=== PATIENT | female | born 1990 | race African-American/Black ===

== ENCOUNTER 2024-06-03 11:02 | Observation (INO) | payer OTHER, SELFPAY ==
[2024-06-03 11:30] VITALS: BP 106/62; PULSE 89
[2024-06-03 11:45] VITALS: BP 111/62; PULSE 88
[2024-06-03 12:00] VITALS: BP 105/59; PULSE 89
[2024-06-03 12:10] LABS: Add Urine Microscopic? NO; Appearance Urine Clear (Clear); Bilirubin Urine Negative (Negative); Blood Urine Negative (Negative); Color Urine Yellow (Yellow); Glucose Urine UA Negative (Negative); Ketones Urine Negative (Negative); Leukocyte Esterase Ur Negative LEU/UL (Negative); Nitrate Urine Negative (Negative); Protein Urine Negative (Negative); Specific Grav Ur 1.024 (1.001-1.035); Urobilinogen Urine 0.2 mg/dL (<2.0)
[2024-06-03 12:15] VITALS: BP 104/60; PULSE 84
[2024-06-03 12:30] VITALS: BP 104/57; PULSE 85
[2024-06-03 13:07] VITALS: BMI 27.6
--- NOTE | 2024-06-03 13:07 | OBADM ---
This patient, Sara Kimble, admitted to the OB room OB Post 116 for observation. Patient/family oriented to hospital policies and general routines including ID bracelet, bed and alarms, visiting hours, pain management, procedures, bathroom and other care routines, personal items, smoking policy, room service/diet, and visiting hours. Patient/Family are encouraged to report perceived risks to care and to ask questions if they do not understand what they are told or what they should do.
--- NOTE | 2024-06-04 09:25 | P.PNOB_ITS ---
OB - Triage/Final Diagnosis Visit Information Date of evaluation: 07/03/24 Reason for evaluation: threatened labor Comments/Additional reasons for admission: I have assessed the risk for this patient, Sara Kimble, and determined that she would benefit from observation care. Evaluation Laboratory results: Laboratory Tests 06/03/24 11:43 Urine Color Yellow Urine Appearance Clear Urine pH 6.0 Ur Specific [place] 1.024 Urine Protein Negative Urine Glucose (UA) Negative Urine Ketones Negative Ur Blood (Man) Negative Urine Nitrate Negative Urine Bilirubin Negative Urine Urobilinogen 0.2 Ur Leukocyte Esterase Negative Vital signs: Vital Signs - 24 hr 06/03/24 11:30 06/03/24 11:45 06/03/24 12:00 Pulse Rate 89 88 89 Blood Pressure 106/62 111/62 105/59 L 06/03/24 12:15 06/03/24 12:30 Pulse Rate 84 85 Blood Pressure 104/60 104/57 L
== END 2024-06-03 13:24 | disposition home or self-care (01) ==
PROVIDERS: Admitting Provider Obstetrics & Gynecology; Visit Provider Obstetrics & Gynecology
DX: O47.9 False labor, unspecified (principal); Z3A.00 Weeks of gestation of pregnancy not specified
CPT/HCPCS: 81003; 87086; G0378; G0379

== ENCOUNTER 2024-06-08 10:48 | Outpatient (RCR) | payer OTHER, SELFPAY ==
[2024-06-10] MEDS: RHO(D) IMMUNE GLOBULIN 300 MCG/2 ML SYRINGE IM (16:34)
== END 2024-09-06 23:59 | disposition home or self-care (01) ==
LOC: ANHLAB 10:48
PROVIDERS: Visit Provider Obstetrics & Gynecology
DX: Z29.13 Encounter for prophylactic Rho(D) immune globulin (principal)
CPT/HCPCS: 36415; 85461; 86850; 86900; 86901; 90384; 96372; J2790

== ENCOUNTER 2024-07-19 16:10 | Observation (INO) | payer OTHER, SELFPAY ==
[2024-07-19 16:51] VITALS: BP 114/73; PULSE 98
[2024-07-19 17:00] VITALS: BP 112/69; PULSE 89
[2024-07-19 17:13] LABS: Add Urine Microscopic? YES; Appearance Urine Clear (Clear); Bacteria Urine None Seen /hpf; Bilirubin Urine Negative (Negative); Blood Urine Negative (Negative); Color Urine Yellow (Yellow); Glucose Urine UA Negative (Negative); Ketones Urine Negative (Negative); Leukocyte Esterase Ur Trace LEU/UL (Negative); Nitrate Urine Negative (Negative); Non Pathogenic Casts 0-2; Protein Urine Negative (Negative); Specific Grav Ur 1.019 (1.001-1.035); Squamous Epithelial Cell Urine Moderate /hpf (Few); Urobilinogen Urine 0.2 mg/dL (<2.0); WBC Urine 0-5 /hpf (0-3)
[2024-07-19 17:15] VITALS: BP 116/62; PULSE 84
[2024-07-19 17:27] VITALS: BMI 28.6
--- NOTE | 2024-07-21 12:24 | P.PNOB_ITS ---
OB - Triage/Final Diagnosis Visit Information Date of evaluation: 07/20/24 Reason for evaluation: threatened labor Comments/Additional reasons for admission: I have assessed the risk for this patient, Sara Kimble, and determined that she would benefit from observation care. Evaluation Laboratory results: Laboratory Tests 07/19/24 16:44 Urine Color Yellow Urine Appearance Clear Urine pH 7.0 Ur Specific [place] 1.019 Urine Protein Negative Urine Glucose (UA) Negative Urine Ketones Negative Ur Blood (Man) Negative Urine Nitrate Negative Urine Bilirubin Negative Urine Urobilinogen 0.2 Ur Leukocyte Esterase Trace H Urine RBC 3-5 H Urine WBC 0-5 Ur Squamous Epith Cells Moderate Urine Bacteria None seen Urine Casts 0-2
== END 2024-07-19 18:10 | disposition home or self-care (01) ==
PROVIDERS: Admitting Provider Obstetrics & Gynecology; Visit Provider Obstetrics & Gynecology
DX: O47.03 False labor before 37 completed weeks of gestation, third trimester (principal); Z3A.36 36 weeks gestation of pregnancy
CPT/HCPCS: 81001; 87086; G0378; G0379

== ENCOUNTER 2024-08-09 14:53 | Observation (INO) | payer OTHER, SELFPAY ==
--- NOTE | ~2024-08-09 | US_ITS ---
EXAMINATION: US OB BPP wo non-stress DATE: 08/09/2024 19:04 FORGING MACHINE HAND INDICATION: Low baseline TECHNIQUE: Real-time transabdominal obstetric ultrasound. FINDINGS: There is a single intrauterine gestation in vertex presentation. The placenta is anterior without pl acenta previa. cardiac activity and movement is noted with a heart rate of 141 beats per minute. Biophysical profile: breathin of 2 movement: 2 of 2 tone: 2 of 2 Amniotic fluid pocket: 2 of 2 (the deepest vertical pocket measures 3 cm, although subjectively, stat ic imaging suggests the amniotic fluid is borderline low). Total score: 8 of 8 No images of the cervix are provided the submitted images. IMPRESSION: 1. Single intrauterine gestation in vertex presentation. 2: Total biophysical profile score of 8 out of 8 . Reviewed, dictated and finalized at location A. ING MACHINE HAND
--- NOTE | 2024-08-09 15:15 | OBADM ---
This patient, Sara Kimble, admitted to the OB room Labor/Delivery/Recovery 105 for observation. Patient/family oriented to hospital policies and general routines including ID bracelet, bed and alarms, visiting hours, pain management, procedures, bathroom and other care routines, personal items, smoking policy, room service/diet, and visiting hours. Patient/Family are encouraged to report perceived risks to care and to ask questions if they do not understand what they are told or what they should do.
--- OUTSIDE RECORDS SUMMARY | 2024-08-16 03:18 | XMS_ITS | Encounter Summary ---
Author Organization [facility] Address [facility] [place] [place], [place] [address] [place] [address] Care Team Providers Care Police Patrol Lieutenant Name Role Phone Sahil Flores MD Primary Care Provider [phone] Encounter Details Date Type Department Care Team (Late st Contact Info) Description 05/09/2023 Orders Only [facility] [address] [place] [address] Neida Epps MD [address] [place] [address] Social History Tobacco Use Types Packs/Day Years Used Date Smoking Tobacco: Never Smokeless Tobacco: Never Alcohol Use Standard Drinks/Week Comments Not Currently 0 (1 standard drink = 0.6 oz pur e alcohol) Comments No Sex and Gender Information Value Date Recorded Sex Assigned at Not on file Legal Sex Female 10:24 PM CDT Gender Identity Not on file Sexual Orientation Not on file documented as of this encounter Functional Status * RETIRED Are you deaf or do you have serious difficulty hearing Answer Date of Assessment Author Status Yes 05/25/2021 10:44 AM CDT Acti ve * RETIRED Are you blind or do you have serious difficulty seeing, even when wearing glasses? Answer Date of Assessment Author Status No 05/25/2021 10:44 AM CDT Acti ve * Do you have serious difficulty walking or climbing stairs? Answer Date of Assessment Author Status No 05/25/2021 10:44 AM CDT Inez Kim RN Active * Do you have difficulty dressing or bathing? Answer Date of Assessment Author Status No 05/25/2021 10:44 AM CDT Inez Kim RN Active * Because of a physical, mental, or emotional condition, do you have difficulty doing errands alone such as visiting a doctor's office or shopping? Answer Date of Assessment Author Status No 05/25/2021 10:44 AM CDT Inez Kim RN Active documented as of this encounter Mental Status * Because of a physical, mental, or emotional condition, do you have serious difficulty concentrating, remembering, or making decisions? Answer Entry Date Author Status No 05/25/2021 10:44 AM CDT Inez Kim RN Active documented in this encounter Plan of Treatment Not on file documented as of this encounter Results * (ABNORMAL) COMPREHENSIVE METABOLIC PANEL (05/09/2023 4:15 PM CDT) [facility] GLUCOSE 121(H) 70 - 99 MG/DL 05/09/2023 4:[address] [facility] BUN 12 7 - 18 MG/DL 05/09/2023 4:[address] [facility] CREATININE S/P/B 0.77 0.55 - 1.02 MG/DL 05/09/2023 4:[address] [facility] SODIUM S/P/B 140 136 - 145 MMOL/L 05/09/2023 4:[address] [facility] POTASSIUM S/P/B 3.9 3.5 - 5.1 MMOL/L 05/09/2023 4:[address] [facility] CHLORIDE S/P/B 104 100 - 108 MMOL/L 05/09/2023 4:[address] [facility] CO2 28.5 21 - 32 MMOL/L 05/09/2023 4:[address] [facility] CALCIUM S/P/B 8.9 8.5 - 10.1 MG/DL 05/09/2023 4:38 PM [facility] BILIRUBIN TOTAL S/P/B 0.5 0.2 - 1.2 MG/DL 05/09/2023 4:38 PM [facility] TOTAL PROTEIN S/P/B 7.3 6.4 - 8.2 G/DL 05/09/2023 4:38 PM [facility] ALBUMIN S/P/B 3.9 3.4 - 5.0 G/DL 05/09/2023 4:38 PM [facility] AST 20 15 - 37 U/L 05/09/2023 4:38 PM [facility] ALT 41 14 - 55 U/L 05/09/2023 4:38 PM [facility] ALKALINE PHOSPHATASE S/P/B 79 50 - 136 U/L 05/09/2023 4:38 PM [facility] ANION GAP 7.5 5 - 15 MMOL/L 05/09/2023 4:38 PM [facility] BUN CREATININE RATIO 15.6 6 - 26 05/09/2023 4:38 PM [facility] A/G RATIO 1.1 1.0 - 2.0 RATIO 05/09/2023 4:38 PM [facility] GFR ESTIMATE >90 >90 ML/MIN/1.7 3 M2 05/09/2023 4:38 PM [facility] Comment: NOTE: eGFR is not calculated for patients <18 years of age. This is an estimated GFR calculation using the new CKD EPI creatinine equation without race and so does not require a correction factor for race. This estimated GFR should not be used for calculating drug doses. 05/09/2023 4:15 PM CDT us Neida Epps MD LABORATORY Final Result [facility] [address] [place] [address], documented in this encounter Visit Diagnoses Diagnosis LFT elevation- Primary Other abnormal blood chemistry documented in this encounter Care Teams Police Patrol Lieutenant Relationship Specialty Start Date End Date Sahil Flores MD [address] [place] [address] PCP - General FAMILY MEDICINE SPORTS MEDICINE 03/06/21 documented as of this encounter
--- OUTSIDE RECORDS SUMMARY | 2024-08-16 03:18 | XMS_ITS | Encounter Summary ---
Author Organization [facility] Address [address] [place] [address]. [place], [place] [address] [place] [address] Care Team Providers Care General Road Supervisor Name Role Phone Sahil Flores MD Primary Care Provider [phone] Encounter Details Date Type Department Care Team (Late st Contact Info) Description 05/15/2022 Orders Only [facility] [address] [place] [address] Cari Martinez, [facility] [address] [place] [address] Social History Tobacco Use Types Packs/Day Years Used Date Smoking Tobacco: Never Smokeless Tobacco: Never Alcohol Use Standard Drinks/Week Comments Not Currently 0 (1 standard drink = 0.6 oz pur e alcohol) Comments No Sex and Gender Information Value Date Recorded Sex Assigned at Not on file Legal Sex Female 10:24 PM CDT Gender Identity Not on file Sexual Orientation Not on file COVID-19 Exposure Response Date Recorded In the last 10 days, have yo u been in contact with someone who was confirmed or suspected to have Coronavirus/COVID-19? No / Unsure 05/15/2022 11:40 AM CDT documented as of this encounter Functional Status [...] documented as of this encounter Results * THYROID STIM HORMONE, TSH (05/15/2022 11:54 AM CDT) TSH 1.992 0.358 - 3.74 uIU/ML 05/15/2022 12:42 PM CDT [facility] Comment: HIGH DOSES OF BIOTIN MAY INTERFERE WITH THIS TEST RESULT. CORRELATION TO CLINICAL HISTORY AND PRESENTATION RECOMMENDED. 05/15/2022 11:5 4 AM CDT Cari Martinez CNM LABORATORY Final Result [facility] [address] [place] [address], * HCG QUANT (SERUM)-CHORIONIC GONADOTROPIN (05/15/2022 11:54 AM CDT) HCG QUANTITATIVE <1 MIU/ML 05/15/20 12:42 PM CDT [facility] Comment: WEEKS OF ? REFERENCE RANGES NON- FEMALE ?0-6 ? 0.2 - 1 ? 5 - 50 ? 1 - 2 ? 50 - 500 ? 2 - 3 ? 100 - 5000 ? 3 - 4 ? 500 - 10,000 ? 4 - 5 ? 1000 - 50,000 ? 5 - 6 ? 10,000 - 100,000 ? 6 - 8 ? 15,000 - 200,000 ? 2 - 3 MONTHS ?10,000 - 100,000 05/15/2022 11:5 4 AM CDT [facility] Final Result Performing Organization Address [facility] Co de Phone Number [facility] () [facility] [address] [place] [address], documented in this encounter Visit Diagnoses Diagnosis Hemorrhage in uterus- Primary Hematometra documented in this encounter Care Teams General Road Supervisor Relationship Specialty Start Date End Date Sahil Flores MD [address] [place] [address] PCP - General FAMILY MEDICINE SPORTS MEDICINE 03/06/21 documented as of this encounter
--- OUTSIDE RECORDS SUMMARY | 2024-08-16 03:18 | XMS_ITS | Encounter Summary ---
Author Organization [facility] Address [address] [place] [address]. [place], [place] [address] [place] [address] Care Team Providers Care Fiber Optics Technician Name Role Phone Sahil Flores MD Primary Care Provider [phone] Encounter Details Date Type Department Care Team (Latest Contact Info) Description 05/11/2021 2:24 PM CDT - 05/11/2021 2:37 PM CDT Hospital Encounter [facility] Labor & Delivery [address] [place], [place] [id number] Neida Epps MD [address] [place], [place] [id number] Discharge Disposition: Home or Self Care (Routine Discharge) Social History Tobacco Use Types Packs/Day Years Used Date Smoking Tobacco: Never Assessed Comments Yes Sex and Gender Information Value Date Recorded Sex Assigned at Not on file Legal Sex Female 10:24 PM CDT Gender Identity Not on file Sexual Orientation Not on file documented as of this encounter Medications at Time of Discharge buPROPion XL 300 MG 24 hr tablet Take 300 mg by mouth daily. vitamin 27-1 MG tablet Take 1 tablet by mouth daily. documented as of this encounter Plan of Treatment Not on file documented as of this encounter Visit Diagnoses Not on filedocumented in this encounter Administered Medications Inactive Administered Medications - up to 3 most recent administrations Medication Order MAR Action Action Date Dose Rate Site betamethasone acet/sodium phosphate (CELESTONE) injection 12 mg 12 mg, Intramuscular, Once, 1 dose, On Fri05/11/21 at 1445, Shake Well Given 05/11/2021 2:33 PM CDT 12 mg Right Ventrogluteal documented in this encounter Active and Recently Administered Medications Times are shown in CDT. Scheduled Medication Order 05/09/2021 05/10/2021 05/11/2021 betamethasone acet/sodium phosphate (CELESTONE) injection 12 mg (COMPLETED) 12 mg, Intramuscular, Once, 1 dose, On Fri05/11/21 at 1445, Shake Well 1433 (Given - Provid er: Ankita Mandujano RN) documented in this encounter Care Teams Fiber Optics Technician Relationship Specialty Start Date End Date Sahil Flores MD [address] [place] [address] PCP - General FAMILY MEDICINE SPORTS MEDICINE 03/06/21 documented as of this encounter
--- OUTSIDE RECORDS SUMMARY | 2024-08-16 03:18 | XMS_ITS | Encounter Summary ---
Author Organization [facility] Address [address] [place] [address]. [place], [place] [address] [place] [address] Care Team Providers Care Automatic Edger Name Role Phone Sahil Flores MD Primary Care Provider Encounter Details Date Type Department Care Team (Latest Contact Info) Description 05/23/2021 Travel Social History Tobacco Use Types Packs/Day Years Used Date Smoking Tobacco: Never Assessed Comments Yes Sex and Gender Information Value Date Recorded Sex Assigned at Not on file Legal Sex Female 10:24 PM CDT Gender Identity Not on file Sexual Orientation Not on file COVID-19 Exposure Response Date Recorded In the last month, have you been in contact with someone who was confirmed or suspected to have Coronavirus / COVID-19? No / Unsure 05/23/2021 12:56 PM CDT documented as of this encounter Plan of Treatment Not on file documented as of this encounter Visit Diagnoses Not on filedocumented in this encounter Care Teams Automatic Edger Relationship Specialty Start Date End Date Sahil Flores MD [facility] [place] [address] PCP - General FAMILY MEDICINE SPORTS MEDICINE 03/06/21 documented as of this encounter
--- OUTSIDE RECORDS SUMMARY | 2024-08-16 03:18 | XMS_ITS | Encounter Summary ---
Author Organization [facility] Address [address] [facility] [place] [address] Care Team Providers Care Child Caregiver Name Role Phone Unavailable Primary Care Provider Unavailabl e Encounter Details Date Type Department Care Team (Latest Contact Info) Description 02/08/2021 8:30 AM CDT - 02/08/2021 11:59 PM CDT Hospital Encounter [facility]ERNAL TE[facility]OU[facility] [address] [place] [address] Justo King MD [address] [address] Discharge Disposition: Home or Self Care Social History Tobacco Use Types Packs/Day Years Used Date Smoking Tobacco: Never Assessed Sex and Gender Information Value Date Recorded Sex Assigned at Not on file Gender Identity Not on file Sexual Orientation Not on file COVID-19 Exposure Response Date Recorded In the last month, have you been in contact with someone who was confirmed or suspected to have Coronavirus / COVID-19? Unable to assess 01/30/2021 7:11 AM CDT documented as of this encounter Plan of Treatment Not on file documented as of this encounter Procedures Procedure Name Priority Date/Time Associated Diagnosis Comments SONOGRAM - COMPLETE Routine 02/08/2021 1 0:01 AM CDT documented in this encounter Results * SONOGRAM - COMPLETE (02/08/2021 10:01 AM CDT) Anatomical Region Laterality Modality Other 02/08/2021 10:0 1 AM CDT Narrative 03/19/2021 1:36 PM CDT ?[facility] ? MATERNAL MEDICINE ?FAX: ? Pat. Name: ?SARA KIMBLE Pat. No: ?[id number] Study Date: ?? 02/08/2021 ??10:01am , Age: ? 1990, 30 Pregnancies: ?? 2, Para 0 LMP: ?09/07/2020 GA by LMP: ?22w0d GA by US: ? 21w2d ?? JOSE GA Selected: ??22w0d (LMP) JOSE D: ?2021 Referring MD: Hali Aguayo MD Classer: ??Rick Marshall RDMS CPT4: ? 31073,91152 Hist/Ind: ? Vyvanse use MEASUREMENTS & AGE ? GROWTH EVALUATION Measurement ??GA ? Range ? Srce %for GA Ratios ----- ---- ------- BPD ??5.2 cm 21w6d ([id number]) Hadl BPD 42% FL/BPD 0.71 HC ??19.2 cm 21w3d ([id number]) Hadl HC ??17% FL/AC ??0.24 (0.20 - 0.24) AC ??15.5 cm 20w5d ([id number]) Hadl AC ??9% HC/AC ??1.23 (1.04 - 1.23* FL ?? 3.7 cm 21w6d ([id number]) Hadl FL ??33% CI ? 0.76 (0.70 - 0.86) HL ?? 3.5 cm 21w6d ([id number]) Darrell HL ??47% GA for sonogram 21w2d ([id number]) ?? Weight Estimate: based on (BPD,HC,AC,FL) Hadlock ?Weight: 410 gm (350-470gm) Hadloc ? : 0lbs, 14oz ? Normal: 479 gm (359-598gm) Hadloc ? Wt% ? 14% for 22w0d Cervix: ??Length: 3 cm ??Approach: transabdominal Heart Rate: 140 bpm Amniotic Fluid Index: 11.1cm (09.7-21.6) Q1: 3.2cm ??Q2: 3.3cm ??Q3: 3.0cm ??Q4: 1.6cm ?? EVAL, PLACENTA Presentation: cephalic Umbilical Cord: 3 Vessels Placenta: posterior Heart Rate: 140 bpm Gender: female Amniotic Fluid Volume: normal MATERNAL ANATOMY Right ??Desc: Suboptimal Left ??Desc: Appears normal Anatomy!Normal!Abnormal!Suboptimal!Prev. Seen!Comments Cranium ?! ?? x ??! ?! ?! ?! Mdl (CSP/Thal! ?? x ??! ?! ?! ?! Ventricles ?? ! ?? x ??! ?! ?! ?! Choroid Plexu! ?? x ??! ?! ?! ?! Cerebellum ?? ! ?? x ??! ?! ?! ?! Cerebellar Ve! ?? x ??! ?! ?! ?! Cisterna M. ??! ?? x ??! ?! ?! ?! Nuchal Fold ??! ?? x ??! ?! ?! ?! Orbits ? ! ?! ?! ? x ?! ?! Profile ?! ?? x ??! ?! ?! ?! Nasal Bone ?? ! ?? x ??! ?! ?! ?! Lip ?! ?? x ??! ?! ?! ?! Maxilla ?! ?? x ??! ?! ?! ?! Mandible ? ! ?? x ??! ?! ?! ?! Neck ? ! ?? x ??! ?! ?! ?! Spine ?! ?? x ??! ?! ?! ?! Lungs ?! ?? x ??! ?! ?! ?! 4 Chamber Hea! ?? x ??! ?! ?! ?! LVOT ? ! ?? x ??! ?! ?! ?! RVOT ? ! ?? x ??! ?! ?! ?! 3 Vessel View! ?? x ??! ?! ?! ?! 3 Vessel Trac! ?? x ??! ?! ?! ?! Cross-over ?? ! ?? x ??! ?! ?! ?! Ductal Arch ??! ?? x ??! ?! ?! ?! Aortic Arch ??! ?? x ??! ?! ?! ?! Caval View ?? ! ?? x ??! ?! ?! ?! Situs ?! ?? x ??! ?! ?! ?! Diaphragm ?! ?? x ??! ?! ?! ?! Stomach ?! ?? x ??! ?! ?! ?! Liver ?! ?? x ??! ?! ?! ?! Bowel ?! ?? x ??! ?! ?! ?! Kidneys ?! ?? x ??! ?! ?! ?! Bladder ?! ?? x ??! ?! ?! ?! 3 Vessel Cord! ?? x ??! ?! ?! ?! Cord In! ?? x ??! ?! ?! ?! Upper Extremi! ?? x ??! ?! ?! ?! Hands ?! ?? x ??! ?! ?! ?! Lower Extremi! ?? x ??! ?! ?! ?! Feet ? ! ?? x ??! ?! ?! ?! External Raya! ?? x ??! ?! ?! ?! Placental Cor! ?? x ??! ?! ?! ?! CLINICAL SUMMARY Study Number: 1 ?? A single fetus is seen in cephalic presentation. ??The measurements today are consistent with appropriate size for the JOSE D provided. ??The JOSE D is based on LMP and today's ultrasound. ??The amniotic fluid volume is within normal limits. ?? The anatomy was technically adequate. ?? CONSULT (Video) (Video - HIPAA compliant, patient identified x2, patient consented and agreed, patient place of origin = medical office/computer) The patient was referred to the [facility] office for medication exposure until January 19, 2021. The patient had no complaints today. 1. Vyvanse (for ADD/ADHD): The patient was diagnosed during her formative school years but did not have an IEP. She uses it for concentration. It was recommended by her OB to stop the medication (wean from 30mg daily to eventually off) which she has done and her last exposure was January 19, 2021. She has seen a change in her concentration but can work with this currently. She was placed on Wellbutrin, lowest dose, almost three weeks ago. We reviewed the guiding basic principles of teratology (biological plausibility, cause and effect vs. associations, retrospective and anecdotal studies, lack of combined medication exposures, biological variability and expressivity, lack of long-term data and follow up, risk/benefit for a healthy mother, and the principle of lowest effective dosing). The amphetamine/methamphetamine data mostly comes from those who abuse this/these medication(s). These exposed fetuses are at risk for IUGR, in particular, but the findings may not apply to therapeutic use. Hypertensive disorders, including preeclampsia, may be associated with third trimester use, as well. Congenital anomalies are not specific and are mostly thought not be appreciably increased above the general population risk. For those who abuse these medications, typically they abuse many different drugs and thus the polypharmacy and the degree may have more effect on a fetus/child. It was suggested to follow growth in the third trimester which the patient was agreeable to do. Consult time: The majority of time (>50%) was spent on counseling and coordination of care with the patient and/or family member : ??20 minutes. IMPRESSION: Single, live intrauterine at 22w0d ?? size is within normal limits ?? Amniotic fluid volume: within normal limits ? No overt malformations were seen within the limitations of ultrasound. ?? RECOMMEND: Ultrasound in 6 weeks for growth ?? Thank you for allowing us they opportunity to care for your patient. ?? Justo King MD <Electronic Signature> ??02/08/2021 02:00pm Hali Aguayo DO [facility] ORDERABLES documented in this encounter Visit Diagnoses Diagnosis Supervision of other high risk pregnancies, second trimester (HCC) 22 weeks gestation of (HCC) state, incidental documented in this encounter
--- OUTSIDE RECORDS SUMMARY | 2024-08-16 03:18 | XMS_ITS | Encounter Summary ---
Author Organization [facility] Address [address] [place] [address]. [place], [place] [id number] [place] [id number] Care Team Providers Care Can Runner Name Role Phone Sahil Flores MD Primary Care Provider [phone] Encounter Details Date Type Department Care Team (Latest Contact Info) Description 04/25/2023 1:30 PM CDT - 04/25/2023 11:59 PM CDT Hospital Encounter [facility] [address] [place], [place] [id number] Neida Epps MD [address] [place], [place] [phone] Discharge Disposition: Home or Self Care (Routine [...] Date Author Status No 05/25/2021 10:44 AM DYLANT Inez Kim RN Active documented in this encounter Medications at Time of Discharge buPROPion XL 300 MG 24 hr tablet Take 300 mg by mouth daily. vitamin 27-1 MG tablet Take 1 tablet by mouth daily. documented as of this encounter Plan of Treatment Not on file documented as of this encounter Procedures Procedure Name Priority Date/Time Associated Diagnosis Comments COMPREHENSIVE METABOLIC PANEL STAT 04/25/2023 1:39 PM CDT Threatened , antepartum ([facility]/HCC) HCG QUANT (SERUM)-CHORIONIC GONADOTROPIN STAT 04/25/2023 1:39 PM CDT Threatened , antepartum ([facility]HS/HCC) CBC W/DIFF AUTOMATED STAT 04/25/2023 1:39 PM CDT Threatened , antepartum ([facility]/HCC) documented in this encounter Results * (ABNORMAL) COMPREHENSIVE METABOLIC PANEL (04/25/2023 1:39 PM CDT) [facility] Signature GLUCOSE 110(H) 70 - 99 MG/DL 04/25/2023 2:[address] [facility] BUN 7 7 - 18 MG/DL 04/25/2023 2:[address] [facility] CREATININE S/P/B 0.60 0.55 - 1.02 MG/DL 04/25/2023 2:[address] [facility] SODIUM S/P/B 136 136 - 145 MMOL/L 04/25/2023 2:[address] [facility] POTASSIUM S/P/B 4.0 3.5 - 5.1 MMOL/L 04/25/2023 2:[address] [facility] CHLORIDE S/P/B 103 100 - 108 MMOL/L 04/25/2023 2:[address] [facility] CO2 26.2 21 - 32 MMOL/L 04/25/2023 2:[address] [facility] CALCIUM S/P/B 8.8 8.5 - 10.1 MG/DL 04/25/2023 2:[address] [facility] BILIRUBIN TOTAL S/P/B 0.3 0.2 - 1.2 MG/DL 04/25/2023 2:[address] [facility] Comment: THIS ASSAY IS NOT RECOMMENDED FOR PATIENTS UNDERGOING TREATMENT WITH ELTROMBOPAG DUE TO THE POTENTIAL FOR FALSELY ELEVATED RESULTS. TOTAL PROTEIN S/P/B 7.1 6.4 - 8.2 G/DL 04/25/2023 2:[address] [facility] ALBUMIN S/P/B 3.8 3.4 - 5.0 G/DL 04/25/2023 2:[address] [facility] AST 116(H) 15 - 37 U/L 04/25/2023 2:[address] [facility] ALT 187(H) 14 - 55 U/L 04/25/2023 2:[address] [facility] ALKALINE PHOSPHATASE S/P/B 89 50 - 136 U/L 04/25/2023 2:[address] [facility] ANION GAP 6.8 5 - 15 MMOL/L 04/25/2023 2:[address] [facility] BUN CREATININE RATIO 11.7 6 - 26 04/25/2023 2:[address] [facility] A/G RATIO 1.2 1.0 - 2.0 RATIO 04/25/2023 2:[address] [facility] GFR ESTIMATE >90 >90 ML/MIN/1.7 3 M2 04/25/2023 2:[address] [facility] Comment: NOTE: eGFR is not calculated for patients <18 years of age. This is an estimated GFR calculation using the new CKD EPI creatinine equation without race and so does not require a correction factor for race. This estimated GFR should not be used for calculating drug doses. 04/25/2023 1:39 PM CDT us Neida Epps MD LABORATORY Final Result [facility] [address] [place] [address], [place] [phone] * (ABNORMAL) CBC W/DIFF AUTOMATED (04/25/2023 1:39 PM CDT) WBC 7.63 4.50 - 11.00 x10'3/uL 04/25/2023 1:[address] [facility] RBC 4.40 4.20 - 5.40 x10'6/uL 04/25/2023 1:[address] [facility] HGB 13.4 12.0 - 16.0 G/DL 04/25/2023 1:[address] [facility] HCT 41.0 38.0 - 48.0 % 04/25/2023 1:[address] [facility] MCV 93.2 81.0 - 99.0 FL 04/25/2023 1:[address] [facility] MCH 30.5 27.0 - 31.0 PG 04/25/2023 1:[address] [facility] MCHC 32.7 32.0 - 36.0 G/DL 04/25/2023 1:[address] [facility] RDW 12.7 11.5 - 14.5 % 04/25/2023 1:[address] [facility] PLT 219 130 - 400 x10'3/uL 04/25/2023 1:[address] [facility] MPV 9.7 9.3 - 12.2 FL 04/25/2023 1:[address] [facility] CBC COMMENT AUTOMATED RBC MORPHOLOGY AND PLATELET EVALUATION NORMAL 04/25/2023 1:[address] [facility] NEUTROPHILS % 84.8 % 04/25/2023 1:[address] [facility] LYMPHOCYTES % 9.4 % 04/25/2023 1:[address] [facility] MONOCYTES % 4.3 % 04/25/2023 1:[address] [facility] EOSINOPHILS 0.5 % 04/25/2023 1:[address] [facility] BASOPHILS 0.7 % 04/25/2023 1:[address] [facility] IMMATURE GRANS % 0.3 % 04/25/20 1:[address] [facility] NRBC 0.0 % 04/25/2023 1:[address] [facility] ABS. NEUTROPHILS TOTAL 6.47 1.80 - 7.70 x10'3/uL 04/25/2023 1:[address] [facility] ABS. LYMPHOCYTES 0.72(L) 1.00 - 4.80 x10'3/uL 04/25/2023 1:[address] [facility] ABS. MONOCYTES 0.33 0.24 - 0.86 x10'3/uL 04/25/2023 1:[address] [facility] ABS. EOSINOPHILS 0.04 0.04 - 0.36 x10'3/uL 04/25/2023 1:[address] [facility] ABS. BASOPHILS 0.05 0.01 - 0.08 x10'3/uL 04/25/2023 1:[address] [facility] ABS. IMMATURE GRANULOCYTES 0.02 0.00 - 0.49 x10'3/uL 04/25/2023 1:[address] [facility] ABS. NUCLEATED RBC'S 0.00 0.00 - 0.01 x10'3/uL 04/25/2023 1:[address] [facility] 04/25/2023 1:39 PM CDT Neida Epps MD LABORATORY Final Result [facility] [address] [place] [address], * HCG QUANT (SERUM)-CHORIONIC GONADOTROPIN (04/25/2023 1:39 PM CDT) Pathologist [facility] [place] HCG QUANTITATIVE 32 MIU/ML 04/25/20 23 2:[address] [facility] Comment: WEEKS OF ? REFERENCE [...] 2 - 3 MONTHS ?10,000 - 100,000 04/25/2023 1:39 PM CDT Neida Epps MD LABORATORY Final Result Performing Organization Address City/[facility] Co de Phone Number [facility] [address] [place] [address], documented in this encounter Visit Diagnoses Diagnosis Threatened , antepartum ([facility]) Threatened , antepartum documented in this encounter Care Teams Can Runner Relationship Specialty Start Date End Date Sahil Flores MD [address] [place] [address] PCP - General FAMILY MEDICINE SPORTS MEDICINE 03/06/21 documented as of this encounter
--- OUTSIDE RECORDS SUMMARY | 2024-08-16 03:18 | XMS_ITS | Encounter Summary ---
Author Organization [facility] Address [address] [place] [address]. [place], [place] [address] [place] [id number] Care Team Providers Care Senior Quality Analyst Name Role Phone Sahil Flores MD Primary Care Provider [phone] Reason for Visit * Reason Comments (Labor) * Auth/Cert Specialty Diagnoses / Procedures Referred By Contac t Referred To Contact Diagnoses BREECH PRESENTATION, IUGR Procedures NONE PRIMARY SECTION Referral ID Status Reason Start Date Expiration Date Visits Re quested Visits Authorized [id number] 1 1 Encounter Details Date Type Department Care Team (Late st Contact Info) Description 05/25/2021 12:00 PM CDT - 05/25/2021 1:12 PM CDT Surgery [facility] Labor & Delivery [address] [place], [place] [id number] Neida Quintero MD [address] [place], [place] [id number] PRIMARY SECTION Surgery Details Date/Time Status Location OR Service Patient Class Case Class Case Type Trauma Case? 05/25/2021 12:00 PM Posted [facility] L+D CS 1 Obstetrics Morning Admit E - Elective No Panel 1 Procedure LRB Anes Op Region Wound Class Comments PRIMARY SECTION N/A Spinal Abdomen Clean Contaminated Surgeon Surgeon Role Service Panel Neida Quintero MD Primary Obstetrics 1 documented in this encounter Social History Tobacco Use Types Packs/Day Years [...] have Coronavirus / COVID-19? No / Unsure 05/25/2021 10:21 AM CDT documented as of this encounter Last Filed Vital Signs Vital Sign Reading Time Taken Comments Blood Pressure 120/61 05/25/2021 1:10 PM CDT Pulse 96 05/25/2021 1:10 PM CDT Temperature 36.8 ??C (98.2 ??F) 05/25/2021 10:19 AM C DT Respiratory Rate 18 05/25/2021 10:19 AM CDT Oxygen Saturation 97% 05/25/2021 10:19 AM CDT Inhaled Oxygen Concentration - - Weight 77.6 kg (171 lb) 05/24/2021 2:27 PM CDT Height 172.1 cm (5' 7.75 ) 05/24/2021 2:27 PM CD T Body Mass Index 26.19 05/24/2021 2:27 PM CDT documented in this encounter Functional Status * Question Answer Date of Assessment Author Status Do you have serious difficulty walking or climbing stairs? No 05/25/2021 10:44 AM CDT Inez Kim RN Activ e * Question Answer Date of Assessment Author Status Do you have difficulty dressing or bathing? No 05/25/2021 10:44 AM CDT Inez Kim RN A ctive Because of a physical, mental, or emotional condition, do you have difficulty doing errands alone such as visiting a doctor's office or shopping? No 05/25/2021 10:44 AM CDT Inez Kim RN Active * RETIRED Are you deaf or do [...] Assessment Author Status No 05/25/2021 10:44 AM DYLANT Inez Kim RN Active * Do you have difficulty dressing or bathing? Answer Date of Assessment Author Status No 05/25/2021 10:44 AM Inez Patrick RN Active * Because of a physical, mental, or emotional condition, do you have difficulty doing errands alone such as visiting a doctor's office or shopping? Answer Date of Assessment Author Status No 05/25/2021 10:44 AM Inez Patrick RN Active documented as of this encounter Mental Status * Question Answer Entry Date Author Status Because of a physical, mental, or emotional condition, do you have serious difficulty concentrating, remembering, or making decisions? No 05/25/2021 10:44 AM Inez Patrick RN A ctive * Because of a physical, mental, or emotional condition, do you have serious difficulty concentrating, remembering, or making decisions? Answer Entry Date Author Status No 05/25/2021 10:44 AM Inez Patrick RN Active documented in this encounter Discharge Summaries * Hali Aguayo DO - 05/27/2021 1:17 PM CDT DISCHARGE SUMMARY Sara Read - 1990 - [id number] - [id number] Admission Date: 05/25/2021 Discharge Date: 05/27/21 Admitting Physician: Dr. Quintero Discharge Physician: Dr. Hali Aguayo DO Admitting Diagnosis: 1) at 37w1d 2) Intrauterine growth restriction 3) Breech fetus 4) Depression Discharge Diagnosis: 1) . 2) POD #2 s/p PLTCS 3) Depression Admission Condition: Stable Discharge Condition: Stable Procedures: CSE, PLTCS Consults: None Hospital Course: Sara Read presented to the hospital for scheduled due to a breechfetus with known IUGR. She underwent an uncomplicated section. Her course was uncomplicated. She was discharged home on POD # 2 after she was passing flatus, ambulatory, voiding, and tolerating her diet. She also had adequate pain control with oral pain medications. Labs: Recent Labs 05/26/21 0600 HGB 12.0 WBC 11.3* PLT 222 Discharge Exam: Filed Vitals: 05/25/21 1844 05/26/21 0600 05/26/21 2100 05/27/21 0830 BP: 125/62 109/67 100/59 117/56 Pulse: 92 90 60 87 Resp: 18 18 16 20 Temp: 98.7 ??F (37.1 ??C) 98 ??F (36.7 ??C) 98.3 ??F (36.8 ??C) TempSrc: Oral Oral Oral SpO2: 99% 97% 98% 97% Weight: Height: alert, appears stated age and cooperative Head: Normocephalic, without obvious abnormality, atraumatic clear to auscultation bilaterally Heart: S1, S2 normal, no murmur, click, rub or gallop, regular rate and rhythm soft, non-tender, without masses or organomegaly and fundus firm. incision healing well, steri strips intact Extremities: no edema, redness or tenderness in the calves or thighs Skin: Skin color, texture, turgor normal. No rashes or lesions Discharge Medications: Previously given hydrocodone rx Advised to take OTC tylenol and ibuprofen Resume home meds. Medication List CONTINUE taking these medications buPROPion XL 300 MG 24 hr tablet Commonly known as: WELLBUTRIN XL vitamin 27-1 MG tablet Disposition: Home. Follow-up: With [facility] in 1 and 6 weeks. Signed: Hali Aguayo DO 05/27/2021 6:07 PM documented in this encounter Discharge Instructions * Discharge Instructions* Yenny Zuniga RN - 05/27/2021 2:01 PM CDT DISCHARGE INSTRUCTIONS First day at home * Emphasis today should be on resting! * May be more stressful than your nights in the hospital due to lack of sleep and a change in your routine. Lochia * Bloody vaginal discharge (lochia) will gradually decrease and change to pink, then brown and finally yellow. * Bleeding can last up to six weeks. Bowel Movements * Usually occurs in the first 2-3 days. * Ample amount of fluids each day can help relieve or avoid constipation. * A stool softener, such as Colace may also be used. * Hemorrhoids will improve within in the first days to weeks after delivery, may use tucks pads to help with discomfort. Vaginal Delivery * Change your pad frequently to avoid infection. ~Signs of infection - Fever 100.4 or greater - Swelling, redness or discharge from vaginal tear - Discharge that has a foul odor * Use agustina-bottle after urination while having vaginal bleeding. * Use tucks pads and Dermoplast sprat as needed. * Nothing in your vagina for 6 weeks. * No sex for 6 weeks. * May drive with caution ( No driving while on narcotics). * May resume normal activity 1 week after delivery. Section * Incision should be kept clean, dry and uncovered unless directed to differently. ~Monitor for signs of infection. - Fever 100.4 or greater - An incision that is swollen, red and warm to touch - Increased pain or tenderness to incision site - Discharge or bleeding from the incision site * No driving for the first 2 weeks after delivery and no driving while on narcotic pain medications. * Do not soak in a bathtub/ hot tub or go swimming until your doctor instructs otherwise. * Usual activities such as walking, climbing the stairs and light housework are okay but no heavy lifting for the first 6 weeks. After 6 weeks you may resume normal activities. Depression * depression in not uncommon and you should call your physician if you start feeling thefollowing. ~ Prolonged cry spells ~ Thoughts of harming yourself, the baby or others. ~ Severe Anxiety ~ Inability to function or care for yourself or your ~ Depressive symptoms lasting linger than two weeks after your delivery * Breastfeed on demand or 8-12 times a day. * Proper position and latch will help prevent sore/cracked nipples * Engorgement can occur around 2-3 days . ~ Nurse frequently, apply warm compresses and massage for 5 minutes prior to feeding, manual express or pump some milk out to soften the nipple with latch, cold compress after nursing to help with swelling. * Avoid bottles and pacifiers * Call if any of the following problems: ~ Not latching a minimum of 8 times a day or if not having appropriate amount of wet/dry diapers. ~Extreme nipple soreness or unrelieved engorgement ~ Lethargic-unable to arouse frequently to feed or worsening in jaundice ~ If any other questions or concerns Non- Mothers * A period of engorgement may occur around 2-3 days . To treat do the following. ~ Waer a form-fitting bra ~ Ice treatments ~ Avoiding stimulation to the breasts ~ Tylenol and Ibuprofen may be taken ~ Cabbage leaves placed on your breasts * Symptoms should resolve within 24-48 hours although leaking of milk may continue for days or weeks. Call the doctor if: * Severe headache, any type of vision problems, right upper abdominal pain or other evidence of elevated blood pressure. * Bleeding greater than one pad per hour for 2-3 hours. * Foul odor coming from your vagina. * Fever 100.4 or greater. * Swelling, redness, discharge or bleeding from your incision or vaginal laceration. * Unrelieved incisional or abdominal pain. * Your incision begins to separate. * Problems urinating including inability to urinate, burning while urinating and frequent urination. * No bowel movement within 4 days of giving . *Frequent Nausea and vomiting. * Pain or redness in on or both breasts. * Pain, increased or unequal warmth, tenderness or swelling in your legs, especially the calf area. * Baby blues that last longer than 2 weeks. * Chest pain or problem breathing , call 911. SPECIAL FOLLOW-UP INFORMATION * If you had high blood pressure pr pre-eclampsia during , you should return to the clinicfor a blood pressure check 72 hours after delivery again in 7-10 days after delivery. Follow-Up Appointments Follow-Up Numbers [facility]: [facility]: [phone] Window Sash Installer: [facility]: [phone] Home Health: Bias Machine Operator Helper: [phone] documented in this encounter Medications at Time of Discharge buPROPion XL 300 MG 24 hr tablet Take 300 mg by mouth daily. vitamin 27-1 MG tablet Take 1 tablet by mouth daily. documented as of this encounter Progress Notes * Hali Aguayo DO - 05/26/2021 2:02 PM CDT Section Progress Note Subjective: Sara Read, a now POD #1 s/p PLTCS. Pain controlled. Lochia appropriate. Rush is out but she hasn't yet voided, she is passing flatus, ambulating. She denies nausea, chest pain, dyspneaor lower extremity pain/swelling. Baby is in room, . Objective: Filed Vitals: 05/25/21 1522 05/25/21 1545 05/25/21 1844 05/26/21 0600 BP: 111/64 107/70 125/62 109/67 Pulse: 89 96 92 90 Resp: 18 18 18 Temp: 98.4 ??F (36.9 ??C) 98.7 ??F (37.1 ??C) TempSrc: Oral Oral SpO2: 100% 99% 97% Weight: Height: Intake/Output Summary (Last 24 hours) at 05/26/2021 1406 Last data filed at 05/26/2021 1200 Gross per 24 hour Intake -- Output 2100 ml Net -2100 ml Gen: NAD CV: RRR, no m/r/g. Resp: CTAB Abd: Soft, appropriately TTP, active BS, non-distended. Uterus firm and below the umbilicus. Inc: C/D/I dressing, subcuticular suture Exm: Warm, dry, no edema. SCD's off WBC Date Value Ref Range Status 05/26/2021 11.3 (H) 4.8 - 10.8 x10'3/uL Final HGB Date Value Ref Range Status 05/26/2021 12.0 12.0 - 16.0 G/DL Final PLT Date Value Ref Range Status 05/26/2021 222 150 - 350 x10'3/uL Final No results found for this or any previous visit. Assessment: 1) POD # 1, s/p PLTCS for breech and IUGR - AFVSS 2) Plan: 1) [facility] 2) Home tomorrow 3) Incision check in 1 week Hali Aguayo DO,05/26/2021,2:06 PM ? ? documented in this encounter Nursing Notes * Nicolle Keen RN - 05/25/2021 11:30 PM CDT Pt back to bed, SCDs reapplied, tolerated well. * Nicolle Keen RN - 05/25/2021 10:23 PM CDT Pt up to side of bed, agustina care done, linen changed, gown changed, pt ambulated to chair and is currently sitting. Instructed patient not to get up without RN assistance. Tolerated well. documented in this encounter OR Notes * Op Note - Neida Quintero MD - 05/25/2021 12:55 PM CDT Procedure Note Sara Read 05/25/2021 Procedure: primary delivery for breech/IUGR. Pre-Op Diagnosis: breech/IUGR. Post-Op Diagnosis: same Findings: NL uterus/adnexae, female demetrius breech, clear fluid Specimen(s) Removed: gases, test blood, placenta Anesthesia: CSE-jose angel G Surgeon: sona Automation Application Engineer: x Estimated Blood Loss: 500cc NEIDA QUINTERO MD Date: 05/25/2021 Time: 12:55 PM After informed consent was obtained,??patient was taken to the operating room.?Anesthesia was found to be adequate. ??She was prepped and draped in the normal sterile fashion in the dorsal supine position with a leftward tilt. ??Pfannenstiel skin incision was made with the scalpel and carried down to the underlying layer of fascia. ??Fascia was incised in the midline. ??This fascial incision was extended laterally with the curved Gupta scissors. ??Inferior aspect of this incision was grasped with [place] clamps, tented up,??and dissected off of the rectus muscles below both bluntly and with Gupta scissors. ??Attention was turned to the superior aspect of this incision which in a similar fashion was grasped with Pablo clamps tented up and dissected off of the rectus muscles below both bluntly and with Gupta scissors.?Rectus muscles were in the midline. ??Peritoneum was identified and entered high in the field. ??This incision was then extended bluntly. ??Bladder blade was inserted. ??Vesicouterine peritoneum was grasped with a P??an and entered sharply with the Metzenbaum scissors. ??This incision was extended laterally and a bladder flap was created digitally. ??The bladder blade was reinserted. ??The??lower uterine segment was incised in a transverse fashion with thescalpel this incision was??then extended bluntly.?Clear artificial rupture of membranes was perfo rmed. ?the infant's sacrum was delivered anterior, legs flexed, arms flexed in front of head, and head delivred spontaneeously. Cord was doubly clamped and cut and infant was carried to the warmer. ??Cord blood was obtained as in the operative note. ??Placenta was removed and appeared to be intact with a three- vessel cord. ??Uterus was exteriorized and cleared of clots and debris. ??Fundus wasfirm. ??Uterine incision was repaired with 0 Vicryl in a running locking fashion. ??Excellent hemostasis was noted. ??Uterus was returned to the abdomen and gutters were cleared of clots and debris. ??Inspection of the uterine incision and bladder flap revealed excellent hemostasis. ??Counts were correct so peritoneum was reapproximated with 2-0 chromic. ??Fascia was reapproximated with 0 Maxon or ??0 PDS, starting at each corner burying the knots and tying upon itself in the midline. ??Subcutaneous tissue was reapproximated with 3 0??plain and the skin was closed with juliana. ??Patient tolerated the procedure well she received her preop antibiotics the counts were per the team and she recovered in the operating room. Skin closed subcut w 4-0 monocryl so that postop incision check MAY BE VIA TELEHEALTH - documented in this encounter Plan of Treatment Not on file documented as of this encounter Procedures Procedure Name Priority Date/Time Associated Diagnosis Comments RHOGAM Routine 05/26/2021 6:0 0 AM CDT CBC, AUTO, NO DIFF Routine 05/26/2021 6: 00 AM CDT RHOGAM CANDIDACY Routine 05/26/2021 5:14 AM CDT SECTION 05/25/2021 12:0 1 PM CDT BREECH PRESENTATION, IUGR PATHOLOGY Routine 05/25/2021 7:45 AM CDT documented in this encounter Results * RHOGAM (05/26/2021 6:00 AM CDT) Pathologist [facility] SCREEN NEGATIVE 05/26/2021 7:30 AM CDT [facility] 05/26/2021 6:00 AM CDT us Neida Quintero MD BLOOD BANK PRODUCT ORDERABLES Final Result [facility] [address] [place] [address], [place] [phone] * (ABNORMAL) CBC, AUTO, NO DIFF (05/26/2021 6:00 AM CDT) Pathologist [facility] WBC 11.3(H) 4.8 - 10.8 x10'3/uL 05/26/2021 6:44 AM CDT [facility] RBC 3.68(L) 4.10 - 5.10 x10'6/uL 05/26/2021 6:44 AM CDT [facility] HGB 12.0 12.0 - 16.0 G/DL 05/26/2021 6:44 AM CDT [facility] HCT 35.8(L) 36 - 46 % 05/26/2021 6:44 AM CDT [facility] MCV 97.3 80 - 100 FL 05/26/2021 6:44 AM CDT [facility] MCH 32.6 26.0 - 34.0 PG 05/26/2021 6:44 AM CDT [facility] MCHC 33.5 31.0 - 37.0 G/DL 05/26/2021 6:44 AM CDT [facility] RDW 14.0 11.5 - 14.5 % 05/26/2021 6:44 AM CDT [facility] PLT 222 150 - 350 x10'3/uL 05/26/2021 6:44 AM CDT [facility] MPV 9.9 7.0 - 10.4 FL 05/26/2021 6:44 AM CDT [facility] 05/26/2021 6:00 AM CDT us Neida Quintero MD LABORATORY Final Result [facility] [address] [place] [address], [place] [phone] * RHOGAM CANDIDACY (05/26/2021 5:14 AM CDT) MOM'S RHOGAM STATUS PATIENT IS AN RH IMMUNE GLOBULIN CANDIDATE 05/26/2021 5:36 AM CDT [facility] Comment: ADDITIONAL BLOOD BANK TUBE NEEDED CALLED RESULT TO SHANTI YOUNG IN [facility] AT [id number] EB READ BACK AND VERIFIED 05/26/2021 5:14 AM CDT us Hali Aguayo DO BLOOD BANK TEST ORDERABLES Final Result [facility] [address] [place] [address], * Pathology (05/25/2021 7:45 AM CDT) COPATH REPORT ?[facility] ? [address] ?[place], [place] [address] ? [phone] ? Department of Pathology ? Pathology Report ? Surgical Pathology Report Patient Name: SARA READ ? : 1990 (Age: 30) ?Location: [facility] Gender: F ?Collected Date: 05/25/2021 Med Rec #: [id number] ?Date Received: 05/28/2021 Date Reported: 05/30/2021 Provider: NEIDA QUINTERO MD ?SANIYA MCCLURE Specimen(s) Placenta and Umbilical Cord, Final Pathologic Diagnosis PLACENTAL AND UMBILICAL CORD, SECTION: ? - MATURE THIRD TRIMESTER PLACENTA WITH APPROPRIATE WEIGHT (423 GRAMS) ? - UNREMARKABLE UMBILICAL CORD AND MEMBRANES ? - NO EVIDENCE OF CHORIOAMNIONITIS, FUNISITIS, VILLITIS, OR VASCULOPATHY Electronically Signed Out ? PRINCESS FIGUEREDO MD Pathologist CSM:pb Microscopic Description: Microscopic examination supports the above diagnosis. Clinical History IUGR. Gestational age: 37 08/10. Weight: 2560gr. : 9-9 Gross Description The specimen is received in a formalin-filled container labeled with the patient's name (Sara Read), date of and placenta. ??The specimen consists of a 423 gram, 19.0 x 13.0 x 3.0 cm choudhury disc placenta. ??The trivascular umbilical cord inserts eccentrically 2 cm from the disc edge. ??It measures 15 cm in length x 1.1 cm in diameter. ??The plate is bluish reynolds with an unremarkable vascular pattern. ??The maternal surface appears complete with beefy muñoz cotyledons. ??The membranes are fragmented and the point of rupture cannot be accurately determined. ??They appear muñoz to translucent. ??The disc is serially sectioned to show no discrete areas of consolidation. Tank Stave Assembler sections are submitted in cassettes 1-4. ?? AB/plb ?? :pb Billing Fee Code(s): 61277 [facility] 05/25/2021 7:45 AM CDT 05/28/2021 7:45 AM CDT Comment:PLACENTA AND UMBILIC AL CORD, us Neida Quintero MD PATHOLOGY/CYTOLOGY ORDERABLES Final Result [facility] [address] [place] [address], documented in this encounter Visit Diagnoses Not on filedocumented in this encounter Admitting Diagnoses Diagnosis ([facility]) state, incidental documented in this encounter Administered Medications Inactive Administered Medications - up to 3 most recent administrations Medication Order MAR Action Action Date Dose Rate Site buPROPion SR (WELLBUTRIN SR) 12 hr tablet 150 mg 150 mg, Oral, 2 times daily, First dose on 05/25/21 at 1430, Until Discontinued, Therapeutic interchange for bupropion XL 300 mg daily Do not break, chew, or crush. Given 05/25/2021 8:23 PM CDT 150 mg diphenhydrAMINE (BENADRYL) injection 12.5 mg 12.5 mg, Intravenous, Every 4 hours PRN, Itching, Starting on Fri05/25/21 at 1115, Until 05/27/21 at 1728, For IV administration, give no faster than 25 mg/min. HYDROcodone-acetaminophen (NORCO) 5-325 MG tablet 1 tablet 1 tablet, Oral, Every 4 hours PRN, Moderate pain (Scale 4 - 7), Starting on Fri05/25/21 at 1346, Until 05/27/21 at 1728, Maximum dose of acetaminophen is 4000 mg from all sources in 24 hours., Post-Op Given 05/27/2021 2:39 PM CDT 1 tablet Given 05/27/2021 10:41 AM CDT 1 tablet Given 05/27/2021 6:37 AM CDT 1 tablet ibuprofen (MOTRIN) tablet 600 mg 600 mg, Oral, Every 6 hours, First dose on 05/26/21 at 1900, Until Discontinued, Post-Op Given 05/27/2021 1:18 PM CDT 600 mg Given 05/27/2021 7:04 AM CDT 600 mg Given 05/27/2021 2:11 AM CDT 600 mg naLOXone (NARCAN) 0.04 mg in sodium chloride (PF) 0.9 % IV syringe 0.04 mg, Intravenous, Every 5 min PRN, Other, for itching if?diphenhydramine is not effective, 4 doses, Starting on Fri05/25/21 at 1115, Until 05/27/21 at 1728, NALOXONE DOSE/DILUTION Dilute naloxone 0.4 mg (1 mL) with 9 mL NS to achieve concentration of 0.04 mg/mL. Admin/calculated amount is based on a concentration of 0.04 mg/mL. Administer each dose over 5-8 seconds. naLOXone (NARCAN) 2,000 mcg in sodium chloride 0.9 % 250 mL infusion 1.7 mcg/kg/hr ? 77.6 kg (16.49 mL/hr), Intravenous, Continuous PRN, For severe N/V or pruritis, Starting on Fri05/25/21 at 1115, Until 05/27/21 at 1728 naLOXone (NARCAN) injection 0.4 mg 0.4 mg, Intravenous, As needed, Opioid reversal, POSS of 4, if patient exhibits somnolence, excessive sedation, or respiratory rate is less than 8 breaths per minute., 2 doses, Starting on Fri05/25/21 at 1115, Until 05/27/21 at 1728, Administer every 2 minutes as needed for 2 doses. senna-docusate (SENOKOT-S) 8.6-50 MG tablet 1 tablet 1 tablet, Oral, 2 times daily, First dose on Fri05/26/21 at 0900, Until Discontinued Given 05/27/2021 10:13 AM CDT 1 tablet Given 05/26/2021 10:04 PM CDT 1 tablet Given 05/26/2021 10:02 AM CDT 1 tablet documented in this encounter Active and Recently Administered Medications Times are shown in CDT. Scheduled Medication Order 05/25/2021 05/26/2021 05/27/2021 buPROPion SR (WELLBUTRIN SR) 12 hr tablet 150 mg 150 mg, Oral, 2 times daily, First dose on Fri05/25/21 at 1430, Until Discontinued, Therapeutic interchange for bupropion XL 300 mg daily Do not break, chew, or crush. 170 (Not Given - Provider: Mayra Hidalgo RN - Reason: Schedule Changed)2022 (Given - Provider: Nicolle Keen RN) 1344 (Not Given - Provider: Francesca Cox RN - Reason: Patient/family declined)2204 (Not Given - Provider: Melba Damon RN - Reason: Patient/family declined) 0954 (Not Given - Provider: Yenny Zuniga RN - Reason: Patient/family declined) ceFAZolin (ANCEF) 2 g in sterile water 20 mL IV (COMPLETED) 2 g, Intravenous, at 240 mL/hr, call center representative, 1 dose, On Fri05/25/21 at 1215, Give 2 gram dose for patients less than 120 kg. Give within 60 minutes of surgical incision., C Section Pre-Op 1209 (Given - Provider: Mayra Hidalgo, TERI) ibuprofen (MOTRIN) tablet 600 mg(Linked Group 1) 600 mg, Oral, Every 6 hours, First dose on 05/26/21 at 1900, Until Discontinued, Post-Op 1949 (Given - Provider: Melba Damon RN) 0211 (Given - Provider: Melba Damon RN)0704 (Given - Provider: Yenny Zuniga, TERI)1318 (Given - Provider: Yenny Zuniga, TERI) ketorolac (TORADOL) injection 30 mg (COMPLETED)(Linked Group 1) 30 mg, Intravenous, Every 6 hours, 4 doses, First dose on Fri05/25/21 at 1900, Last dose on Fri05/26/21 at 1300, For IV administration, give over 15 seconds., Post-Op 1839 (Given - Provider: Nicolle Keen RN) 0054 (Given - Provider: Nicolle Keen RN)0705 (Given - Provider: Francesca Cox, TERI)1343 (Given - Provider: Francesca Cox, TERI) rho D immune globulin (RHOPHYLAC) injection 300 mcg (COMPLETED) 300 mcg, Intravenous, Once, 1 dose, On 05/26/21 at 1300, Prevention of rhesus (Rh) isoimmunization: Infuse at 2 mL per 5 to 15 seconds. Treatment of ITP: Infuse over 3 to 5 minutes. 1344 (Given - Provider: Francesca Cox, TERI) senna-docusate (SENOKOT-S) 8.6-50 MG tablet 1 tablet 1 tablet, Oral, 2 times daily, First dose on 05/26/21 at 0900, Until Discontinued 1002 (Given - Provider: Francesca Cox, TERI)2204 (Given - Provider: Mebla Damon RN) 1013 (Given - Provider: Yenny Zuniga RN) Continuous Medication Order 05/25/2021 05/26/202105/2705/27/2021 lactated ringers infusion (CANCELED) at 125 mL/hr, Intravenous, Continuous, Starting on Fri05/25/21 at 1100, Until Fri05/25/21 at 1350 1048 (New Bag - Provider: Inez Casiano RN)1149 (New Bag - Provider: Inez Casiano RN)1234 (Paused - Provider: Jose Angel Grace CRNA - Comment: Switch to gravity)1235 (New Bag - Provider: Jose Angel Grace CRNA) meperidine (DEMEROL) 2 mg/mL in sodium chloride 0.9 % 250 mL epidural (CANCELED) Epidural, Continuous, Starting on Fri05/25/21 at 1145, Until 05/26/21 at 1117, *High Alert* 1238 (New Bag - Provider: Inez Casiano RN) oxytocin (PITOCIN) 30 units in NS 500 mL infusion 0-300 mL/hr, Intravenous, Continuous, Starting on Fri05/25/21 at 1415, Until Fri05/27/21 at 1728, Initial rate at 300 mL/hr for the first hour, then decrease to 60 mL/hr for the second hour. Continue this rate until the fundus is firm or the patient has completed her recovery phase. HAZARDOUS MEDICATION, Post-Op 1415 (Canceled Entry - Provider: Automatic Discharge Provider - Comment: Automatically canceled at discontinue of medication order) PRN Medication Order 05/25/2021 05/26/2021 05/27/2021 acetaminophen (TYLENOL) tablet 1,000 mg 1,000 mg, Oral, Every 6 hours PRN, Mild pain (Scale 1 - 3), Fever, Starting on Fri05/25/21 at 1346, Until Fri05/27/21 at 1728, Maximum dose of acetaminophen is 4000 mg from all sources in 24 hours., Post-Op diphenhydrAMINE (BENADRYL) capsule 25 mg 25 mg, Oral, Every 4 hours PRN, Itching, Congestion, Starting on Fri05/25/21 at 1346, Until 05/27/21 at 1728, Post-Op diphenhydrAMINE (BENADRYL) injection 12.5 mg 12.5 mg, Intravenous, Every 4 hours PRN, Itching, Starting on Fri05/25/21 at 1115, Until Fri05/27/21 at 1728, For IV administration, give no faster than 25 mg/min. HYDROcodone-acetaminophen (NORCO) 5-325 MG tablet 1 tablet 1 tablet, Oral, Every 4 hours PRN, Moderate pain (Scale 4 - 7), Starting on Fri05/25/21 at 1346, Until 05/27/21 at 1728, Maximum dose of acetaminophen is 4000 mg from all sources in 24 hours., Post-Op 1813 (Given - Provider: Melba Damon RN)2204 (Given - Provider: Melba Damon RN) 0211 (Given - Provider: Melba Damon RN)0637 (Given - Provider: Yenny Zuniga RN)1041 (Given - Provider: Yenny Zuniga RN)1439 (Given - Provider: Yenny Zuniga RN) vbfcnklzh-qcffysul-qtllpkdw one (MYLANTA MAXIMUM STRENGTH) 0530-1003-733 mg/30mL suspension 10 mL, Oral, Every 4 hours PRN, Indigestion, Heartburn, Starting on Fri05/25/21 at 1346, Until 05/27/21 at 1728, Shake Well, Post-Op metoclopramide (REGLAN) tablet 10 mg 10 mg, Oral, Every 6 hours PRN, Nausea, Vomiting, Starting on Fri05/25/21 at 1346, Until Fri05/27/21 at 1728, If no relief from ondansetron (Zofran), Post-Op naLOXone (NARCAN) 0.04 mg in sodium chloride (PF) 0.9 % IV syringe 0.04 mg, Intravenous, Every 5 min PRN, Other, for itching if?diphenhydramine is not effective, 4 doses, Starting on Fri05/25/21 at 1115, Until Fri05/27/21 at 1728, NALOXONE DOSE/DILUTION Dilute naloxone 0.4 mg (1 mL) with 9 mL NS to achieve concentration of 0.04 mg/mL. Admin/calculated amount is based on a concentration of 0.04 mg/mL. Administer each dose over 5-8 seconds. naLOXone (NARCAN) 2,000 mcg in sodium chloride 0.9 % 250 mL infusion 1.7 mcg/kg/hr ? 77.6 kg (16.49 mL/hr), Intravenous, Continuous PRN, For severe N/V or pruritis, Starting on Fri05/25/21 at 1115, Until 05/27/21 at 1728 naLOXone (NARCAN) injection 0.4 mg 0.4 mg, Intravenous, As needed, Opioid reversal, POSS of 4, if patient exhibits somnolence, excessive sedation, or respiratory rate is less than 8 breaths per minute., 2 doses, Starting on Fri05/25/21 at 1115, Until Fri05/27/21 at 1728, Administer every 2 minutes as needed for 2 doses. ondansetron (ZOFRAN) injection 4 mg 4 mg, Intravenous, Every 8 hours PRN, Nausea, Vomiting, Starting on Fri05/25/21 at 1346, Until Fri05/27/21 at 1728, Discontinue IV Zofran once able to take PO, Post-Op Linked Groups Order Group 1: ketorolac (TORADOL) injection 30 mg (COMPLETED)Jump to med 30 mg, Intravenous, Every 6 hours, 4 doses, First dose on Fri05/25/21 at 1900, Last dose on Fri05/26/21 at 1300, For IV administration, give over 15 seconds., Post-Op Followed by ibuprofen (MOTRIN) tablet 600 mgJump to med 600 mg, Oral, Every 6 hours, First dose on Fri05/26/21 at 1900, Until Discontinued, Post-Op documented in this encounter Care Teams Senior Quality Analyst Relationship Specialty Start Date End Date Sahil Flores MD [facility] [place] [address] PCP - General FAMILY MEDICINE SPORTS MEDICINE 03/06/21 documented as of this encounter
--- OUTSIDE RECORDS SUMMARY | 2024-08-16 03:18 | XMS_ITS | Encounter Summary ---
Author Organization [facility] Address [address] [place] [address] [place] [address] Care Team Providers Care Powder Coater Name Role Phone Unavailable Primary Care Provider Unavailabl e Reason for Visit * Reason Comments FAD NST Encounter Details Date Type Department Care Team (Latest Contact Info) Description 05/10/2021 9:36 AM CDT - 05/10/2021 11:59 PM CDT Hospital Encounter [facility] Maternal & Care [address] [place] [address] Dante Bardales MD [address] [place] [address] Discharge Disposition: Home or Self Care Social History Tobacco Use Types Packs/Day Years Used Date Smoking Tobacco: Never Assessed Comments Yes Sex and Gender Information Value Date Recorded Sex Assigned at Not on file Gender Identity Not on file Sexual Orientation Not on file documented as of this encounter Last Filed Vital Signs Vital Sign Reading Time Taken Comments Blood Pressure 117/62 05/10/2021 10:03 AM CDT Pulse 92 05/10/2021 10:03 AM CDT Temperature - - Respiratory Rate 18 05/10/2021 10:03 AM CDT Oxygen Saturation - - Inhaled Oxygen Concentration - - Weight - - Height - - Body Mass Index - - documented in this encounter Progress Notes * Joan Silvestre, RESEARCH EXECUTIVE-TRACK LEADER - 05/10/2021 2:56 PM CDT OUTPATIENT TESTING FORM Maternal- Medicine Outpatient Testing DATE: 05/10/2021 NAME: Cesiaadeline Lamin REFERRING PHYSICIAN: Hali Aguayo, DO INDICATION: SGA GESTATIONAL AGE: 35w0d Estimated Date of Delivery: 06/14/21 Maternal Blood Pressure BP: 117/62 NST Objective Findings Baseline: 135 BPM Variability: Moderate Uterine Irritability: Yes Contractions: Irregular Frequency: 10-11 Duration (sec) Range: 70-80 Perceived Intensity: Mild RECOMMENDATION:Continue testing as previously ordered. Patient not feeling contractions. GIANNA Poon * Joan Silvestre APRN-CNP - 05/10/2021 1:35 PM CDT [facility] follow up visit Sara Kimble is a 30 year old 35w0d. Patient seen today in regards to SGA and plan of care. She has no complaints today. She reports good FM, no bleeding, no LOF, no DC, no cramps/contractions/pain/pressure, no CRANE's, vision changes, RUQ pain, or swelling. Her is complicated by: Patient Active Problem List Diagnosis Date Noted ??? Second 04/11/2021 Priority: Not Prioritized ??? Small for gestational age (SGA) 04/11/2021 Priority: Not Prioritized ??? Rh negative status during in second trimester 03/16/2021 Priority: Not Prioritized Exam: BP 117/62 (BP SITE: LEFT ARM, BP POSITION: SITTING, BP CUFF SIZE: 11L) Pulse 92 Resp 18 General: NAD Abdomen: soft, NT Extremities: equal in size and width bilaterally, NT, no sign of edema FHT: per NST Urine dip: negative glucose, negative ketones, negative protein, negative blood US: Please see report for details. Impressions/Recs 1. IUP (Intrauterine ) at 35w0d 2. SGA with low MCA dopplers on 05/07/21 Growth on : 2052gm, 8%, AC 2%, АННА 12.7cm Noral interval growth, Umbilical dopplers are WNL but sensitivity is limited at this gestational age, MCA Doppler waveforms reveal a PI < 5th centile that is concerning for cephalization. Recommended to continue close maternal movement monitoring. NST reassuring today. Plan to repeat NST/BPP and dopplers on Friday. Discussed ANCS for lung maturity. Discussed this option with Dr. Bardales who as well agrees for ANCS. Primary OB office (Amy) notified and she stated she would contact the patient to schedule afterreviewing with primary OB. Discussed with the patient that we are recommending 37 weeks for delivery unless indicated sooner. 3. We reviewed kick counts (BID), as well as PTL and preeclampsia signs and symptoms. 4. RTC: Friday for US/NST 5. Keep all appointments with primary OB Please be advised that these recommendations are being made in the best interest of our patients during the COVID 19 Pandemic. The patient is to follow up with her primary obstetrical care provider for her routine care and acute OB care including delivery as clinically indicated. Once again, we appreciate the opportunity to assist you in the care of your patient. If issues arise for which I can be of help before her next visit here, please contact me directly, or contact one of the [facility] physicians. GIANNA Poon 05/10/2021 1:35 PM * Angelina Bernal RN - 05/10/2021 10:05 AM CDT PT. SCREENED FOR COVID 19 BEFORE ENTERING OFFICE, SEE SEPARATE NOTE. Pt here for NST visit and added on for [facility] visit. Pt accompanied by sig other. Pt and sig other had questions regarding delivery getting scheduled. Pt states she was informed by [facility] last visit, that itcould happen when baby is assessed at this visit or next visit. Pt states she was seen at [facility] in [place] on Friday with complaints of contractions, she states she was checked and found to be more effaced . She reports they gave me a shot that made my heart race . Pt denies loss of fluid, vaginal bleeding, epigastric pain or unrelieved headaches. No edema noted at this time. Ptwas told per Dr. Magda Villalpando to be off work after her visit to the hospital on FridayKyra Silvestre NP in to see pt and to review NST, reactive. Name: Sara Kimble Date of : 1990 Today's Date: 05/10/2021 35w0d NST RESULTS (ROY) OBJECTIVE FINDINGS , Pulse: 92, Resp: 18, BP: 117/62 NST Indication(s): ( growth restriction) Uterine Irritability: Yes Contractions: Irregular Frequency: 10-11 Duration (sec) Range: 70-80 Perceived Intensity: Mild OBJECTIVE FINDINGS Movement: Present Monitoring Mode: External Baseline: 135 BPM Variability: Moderate Decelerations: None Accelerations: Yes OTHER INFORMATION Angelina Bernal RN documented in this encounter Plan of Treatment Not on file documented as of this encounter Visit Diagnoses Diagnosis Rh negative status during in second trimester (HCC)- Primary Second (HCC) state, incidental Small for gestational age (SGA) ([facility]) Cbvwb-val-mrnqg without mention of malnutrition, unspecified (weight) SGA (small for gestational age), , affecting care of mother, antepartum, third trimester, not applicable or unspecified fetus (HCC) 35 weeks gestation of ([facility]) state, incidental documented in this encounter
--- OUTSIDE RECORDS SUMMARY | 2024-08-16 03:18 | XMS_ITS | Encounter Summary ---
Author Organization [facility] Address [address] [place] [address] [place] [address] Care Team Providers Care Horse Exerciser Name Role Phone Unavailable Primary Care Provider Unavailabl e Reason for Visit * Reason Comments FAD NST Biophysical Profile Encounter Details Date Type Department Care Team (Latest Contact Info) Description 05/14/2021 7:30 AM CDT - 05/14/2021 11:59 PM CDT Hospital Encounter [facility] Maternal & Care [address] [place] [address] Ricardo Walden MD Discharge Disposition: Home or Self Care Social History Tobacco Use Types Packs/Day Years Used Date Smoking Tobacco: Never Assessed Comments Yes Sex and Gender Information Value Date Recorded Sex Assigned at Not on file Gender Identity Not on file Sexual Orientation Not on file documented as of this encounter Last Filed Vital Signs Vital Sign Reading Time Taken Comments Blood Pressure 108/61 05/14/2021 8:33 AM CDT Pulse 89 05/14/2021 8:33 AM CDT Temperature - - Respiratory Rate - - Oxygen Saturation - - Inhaled Oxygen Concentration - - Weight - - Height - - Body Mass Index - - documented in this encounter Progress Notes * Marija Vasquez RN - 05/14/2021 9:04 AM CDT Pt here today for ultrasound and NST. She reports feeling good movement. NST reactive, reviewed remotely by Dr. Walden. Denies cramping/contractions. Denies leakage of fluid/bleeding. Denies headaches, visual changes, edema, and epigastric pain. Pt to return on 05/21 for repeat testing. Denies further questions or concerns for her care today. documented in this encounter Plan of Treatment Not on file documented as of this encounter Procedures Procedure Name Priority Date/Time Associated Diagnosis Comments BIOPHYSICAL PROFILE W NST Routine 05/14/2021 7:40 AM CDT Rh negative status during in second trimester (HCC) documented in this encounter Results * BIOPHYSICAL PROFILE W NST (05/14/2021 7:40 AM CDT) Anatomical Region Laterality Modality Other 05/14/2021 7:40 AM CDT Narrative 05/14/2021 8:42 AM CDT ?[facility] ?PHONE: ??FAX: ? Pat. Name: ?SARA KIMBLE. No: ?[id number] Study Date: ?? 05/14/2021 ??7:40am , Age: ? 1990, 30 Pregnancies: ?? 2, Para 0 Height: ? 67 in Weight: ? 140 lb LMP: ?09/07/2020 GA by LMP: ?35w4d GA by Base: ?? 35w4d ?? JOSE GA Selected: ??35w4d (From [facility]) JOSE D: ?2021 Referring MD: Hali Aguayo MD Aviation Safety Officer: ??Pamela Caicedo RDMS CPT4: ? 68654,[id number] BMI: ?21.92 Hist/Ind: ? Suspected FGR ?Vyvanse use in early ?Rh negative Heart Rate: 145 bpm Amniotic Fluid Index: 07.7cm (07.8-24.9)* Q1: 2.3cm ??Q2: 1.7cm ??Q3: 1.2cm ??Q4: 2.5cm ?? Biophysical Profile: 05/13 Breathin ?? Tone: 2 ?? NST: 2 Movement: ??2 ?? AFV: ??2 EVAL, PLACENTA Presentation: breech Placenta: posterior:fundal Heart Rate: 145 bpm Amniotic Fluid Volume: decreased DOPPLER Umbilical - Mid Cord S/D ??2.24(1.66 - 3.54) ? PI ?? 0.81 (0.59 - 1.17) ? Middle Cerebral Artery PSV ??55.3cm/s PI ?? 1.48 (1.42 - 2.57) ? Med PSV 52.6cm/s MoM 1.05(<1.5) CLINICAL SUMMARY Study Number: 9 ?? The FHR baseline was 140 bpm during today's reactive NST. The FHR variability was moderate and no decelerations were detected. IMPRESSION: ?? 1) Lucio gestation, 35w4d 2)The АННА of 7.7 cm is < 5th centile but there is a MVP of 3.9 cm that is within normal limits and a '2 x 2 cm pocket' was identified 3) Umbilical Doppler waveforms reveal no evidence of increased arterial resistance 4) MCA Doppler waveforms now reveal no evidence of cephalization 5) Reassuring biophysical profile RECOMMEND: ?? Close maternal movement monitoring while awaiting repeat Dopplers and 10-point BPP in 1 week then a repeat growth assessment in 2 weeks, with additional testing (Dopplers, BPP, etc.) at that time if / as clinically indicated Thank you for allowing us the opportunity to care for your patient. Elizabeth Thomas MD <Electronic Signature> ??05/14/2021 08:36am Oziel Mayers MD [facility] ORDERABLES documented in this encounter Visit Diagnoses Diagnosis Second (HCC) state, incidental Small for gestational age (SGA) ([facility]) Aoesn-qqr-mmcsb without mention of malnutrition, unspecified (weight) Rh negative status during in second trimester ([facility]) Encounter for screening for growth retardation (HCC) 35 weeks gestation of (HCC) state, incidental documented in this encounter
--- OUTSIDE RECORDS SUMMARY | 2024-08-16 03:18 | XMS_ITS | Encounter Summary ---
Author Organization [facility] Address [address] [place] [place] [address] Care Team Providers Care Mine Laborer Name Role Phone Unavailable Primary Care Provider Unavailabl e Reason for Visit * Reason Comments Ultrasound FAD NST Encounter Details Date Type Department Care Team (Latest Contact Info) Description 05/07/2021 7:30 AM CDT - 05/07/2021 11:59 PM CDT Hospital Encounter [facility] Maternal & Care [address] [place] [address] Elizabeth Thomas MD [address] [address] Discharge Disposition: Home or Self Care Social History Tobacco Use Types Packs/Day Years Used Date Smoking Tobacco: Never Assessed Comments Yes Sex and Gender Information Value Date Recorded Sex Assigned at Not on file Gender Identity Not on file Sexual Orientation Not on file documented as of this encounter Last Filed Vital Signs Vital Sign Reading Time Taken Comments Blood Pressure 109/61 05/07/2021 8:36 AM CDT Pulse 86 05/07/2021 8:36 AM CDT Temperature - - Respiratory Rate - - Oxygen Saturation - - Inhaled Oxygen Concentration - - Weight - - Height - - Body Mass Index - - documented in this encounter Progress Notes * Marija Vasquez RN - 05/07/2021 8:32 AM CDT Pt here today for ultrasound and NST. She reports feeling good movement. Reports occasional cramping. Denies leakage of fluid, but thinks that she maybe lost part of her mucous plug this weekend. Denies headaches, edema, and epigastric pain. She reports some vision blurriness, but she thinks that it has to do with her needing an eye exam/chnage in her vision prescription. BPP 01/09 today d/t on seeing only 2 of 3 big body movements. NST reactive, reviewed by Dr. Thomas. Will add NST on for . James Silvestre NP to bedside to discuss 37 week delivery recommendation and delivery indications until them. Norma bhat discussed and reviewed with pt. She will return on 05/10 for NST, then on 02/11 for repeat BPP/NST. Pt denies further questions or concerns for her care today. documented in this encounter Plan of Treatment Not on file documented as of this encounter Procedures Procedure Name Priority Date/Time Associated Diagnosis Comments BIOPHYSICAL PROFILE W NST Routine 05/07/2021 7:42 AM CDT Rh negative status during in second trimester (HCC) documented in this encounter Results * BIOPHYSICAL PROFILE W NST (05/07/2021 7:42 AM CDT) Anatomical Region Laterality Modality Other 05/07/2021 7:42 AM CDT Narrative 05/07/2021 8:52 AM CDT ? - [facility] ? [facility] ?PHONE: ??FAX: ? Pat. Name: ?SARA KIMBLE Pat. No: ?[id number] Study Date: ?? 05/07/2021 ??7:42am , Age: ? 1990, 30 Pregnancies: ?? 2, Para 0 Height: ? 67 in Weight: ? 140 lb LMP: ?09/07/2020 GA by LMP: ?34w4d GA by Base: ?? 34w4d ?? JOSE GA by US: ? 33w0d ?? JOSE GA Selected: ??34w4d (LMP) JOSE D: ?2021 Referring MD: Hali Aguayo MD Coordinator Of Rehabilitation Services: ??Pamela Caicedo RDMS CPT4: ? [id number] BMI: ?21.92 Hist/Ind: ? Suspected FGR ?Vyvanse use in early ?Rh negative MEASUREMENTS & AGE ? GROWTH EVALUATION Measurement ??GA ? Range ? Srce %for GA Ratios ----- ---- ------- BPD ??7.9 cm 31w6d (01s1x-87a9o) Hadl BPD 1% FL/BPD 0.85 (0.71 - 0.87) HC ??30.0 cm 33w2d (12u4s-17n8u) Hadl HC ??3% FL/AC ??0.24 (0.20 - 0.24* AC ??27.8 cm 31w6d (38o5m-80t7h) Hadl AC ??2% HC/AC ??1.08 (0.94 - 1.13) FL ?? 6.7 cm 34w4d (41v8z-94k6t) Hadl FL ??40% CI ? 0.73 (0.70 - 0.86) HL ?? 5.6 cm 32w4d (67q2o-57f0j) Darrell HL ??17% GA for sonogram 33w0d (75n4h-76i6c) ?? Weight Estimate: based on (BPD,HC,AC,FL) Hadlock ?Weight: 2052 gm (1753-2352gm) Had ? : 4lbs, 8oz ? Normal: 2508 gm (1881- 3135gm) Had ? Wt% ? 8% for 34w4d Heart Rate: 149 bpm Amniotic Fluid Index: 12.7cm (08.0-24.9) Q1: 0.0cm ??Q2: 3.4cm ??Q3: 5.2cm ??Q4: 4.1cm ?? Biophysical Profile: 03/13 Breathin ?? Tone: 2 ?? NST: 2 Movement: ??0 ?? AFV: ??2 EVAL, PLACENTA Presentation: breech Placenta: posterior Heart Rate: 149 bpm Amniotic Fluid Volume: normal DOPPLER Umbilical - Mid Cord S/D ??1.97(1.70 - 3.63) ? PI ?? 0.67 (0.61 - 1.19) ? Middle Cerebral Artery PSV ??54.9cm/s PI ?? 1.40 (1.49 - 2.68) * ?? Med PSV 50.2cm/s MoM 1.09(<1.5) Anatomy!Normal!Abnormal!Suboptimal!Prev. Seen!Comments Stomach ?! ?? x ??! ?! ?! ?! Kidneys ?! ?? x ??! ?! ?! ?! Bladder ?! ?? x ??! ?! ?! ?! CLINICAL SUMMARY Study Number: 8 ?? No abnormalities were detected during today's limited review of the anatomy. The FHR baseline ranged from 135 to 140 bpm during today's reactive NST. The FHR variability was moderate and no decelerations were detected. IMPRESSION: ?? 1) Lucio gestation, 34w4d 2) Today? s AC measurement < 3rd centile is again consistent with growth restriction but interval growth is apparent 3) The amniotic fluid volume is within normal limits 4) Umbilical Doppler waveforms reveal no evidence of increased arterial resistance but sensitivity is limited >32-34 weeks and MCA Doppler waveforms reveal a PI < 5th centile that is concerning for cephalization 5) Reassuring biophysical profile NOTE: The patient was advised that ultrasound does not allow detection of all structural or chromosomal abnormalities. ?? RECOMMEND: ?? Close maternal movement monitoring while awaiting a repeat NST in 3 days then repeat Doppler studies and another 10-point BPP in 1 week Thank you for allowing us the opportunity to care for your patient. Elizabeth Thomas MD <Electronic Signature> ??05/07/2021 08:52am Oziel Mayers MD [facility] ORDERABLES documented in this encounter Visit Diagnoses Diagnosis Second (HCC) state, incidental Small for gestational age (SGA) ([facility]) Hvvwx-wwe-cakqd without mention of malnutrition, unspecified (weight) Rh negative status during in second trimester ([facility]) SGA (small for gestational age), , affecting care of mother, antepartum, third trimester, not applicable or unspecified fetus ([facility]) 34 weeks gestation of ([facility]) state, incidental documented in this encounter
--- OUTSIDE RECORDS SUMMARY | 2024-08-16 03:18 | XMS_ITS | Encounter Summary ---
Author Organization [facility] Address [facility]. [place], [place] [address] [place] [address] Care Team Providers Care Geek Squad Agent Name Role Phone Sahil Flores MD Primary Care Provider [phone] Encounter Details Date Type Department Care Team (Late st Contact Info) Description 04/25/2023 Orders Only [facility] [address] [place], [place] [address] Neida Epps MD [address] [place] [address] Social History Tobacco Use Types Packs/Day Years [...] COMPREHENSIVE METABOLIC PANEL (04/25/2023 1:39 PM CDT) [facility] GLUCOSE 110(H) 70 - 99 MG/DL 04/25/2023 2:18 PM CDT [facility] BUN 7 7 - 18 MG/DL 04/25/2023 2:18 PM CDT [facility] CREATININE S/P/B 0.60 0.55 - 1.02 MG/DL 04/25/2023 2:18 PM CDT [facility] SODIUM S/P/B 136 136 - 145 MMOL/L 04/25/2023 2:18 PM CDT [facility] POTASSIUM S/P/B 4.0 3.5 - 5.1 MMOL/L 04/25/2023 2:18 PM CDT [facility] CHLORIDE S/P/B 103 100 - 108 MMOL/L 04/25/2023 2:18 PM CDT [facility] CO2 26.2 21 - 32 MMOL/L 04/25/2023 2:18 PM CDT [facility] CALCIUM S/P/B 8.8 8.5 - 10.1 MG/DL 04/25/2023 2:18 PM [facility] BILIRUBIN TOTAL S/P/B 0.3 0.2 - 1.2 MG/DL 04/25/2023 2:18 PM [facility] Comment: THIS ASSAY IS NOT RECOMMENDED FOR PATIENTS UNDERGOING TREATMENT WITH ELTROMBOPAG DUE TO THE POTENTIAL FOR FALSELY ELEVATED RESULTS. TOTAL PROTEIN S/P/B 7.1 6.4 - 8.2 G/DL 04/25/2023 2:18 PM [facility] ALBUMIN S/P/B 3.8 3.4 - 5.0 G/DL 04/25/2023 2:18 PM [facility] AST 116(H) 15 - 37 U/L 04/25/2023 2:18 PM [facility] ALT 187(H) 14 - 55 U/L 04/25/2023 2:18 PM [facility] ALKALINE PHOSPHATASE S/P/B 89 50 - 136 U/L 04/25/2023 2:18 PM [facility] ANION GAP 6.8 5 - 15 MMOL/L 04/25/2023 2:18 PM [facility] BUN CREATININE RATIO 11.7 6 - 26 04/25/2023 2:18 PM [facility] A/G RATIO 1.2 1.0 - 2.0 RATIO 04/25/2023 2:18 PM [facility] GFR ESTIMATE >90 >90 ML/MIN/1.7 3 M2 04/25/2023 2:18 PM [facility] Comment: NOTE: eGFR is not calculated for patients <18 years of age. This is an estimated GFR calculation using the new CKD EPI creatinine equation without race and so does not require a correction factor for race. This estimated GFR should not be used for calculating drug doses. 04/25/2023 1:39 PM CDT us Neida Epps MD LABORATORY Final Result [facility] [address] [place] [address], [place] [phone] * (ABNORMAL) CBC W/DIFF AUTOMATED (04/25/2023 1:39 PM CDT) Pathologist [facility] WBC 7.63 4.50 - 11.00 x10'3/uL 04/25/2023 1:48 PM CDT [facility] RBC 4.40 4.20 - 5.40 x10'6/uL 04/25/2023 1:48 PM CDT [facility] HGB 13.4 12.0 - 16.0 G/DL 04/25/2023 1:48 PM CDT [facility] HCT 41.0 38.0 - 48.0 % 04/25/2023 1:48 PM CDT [facility] MCV 93.2 81.0 - 99.0 FL 04/25/2023 1:48 PM CDT [facility] MCH 30.5 27.0 - 31.0 PG 04/25/2023 1:48 PM CDT [facility] MCHC 32.7 32.0 - 36.0 G/DL 04/25/2023 1:48 PM CDT [facility] RDW 12.7 11.5 - 14.5 % 04/25/2023 1:48 PM CDT [facility] PLT 219 130 - 400 x10'3/uL 04/25/2023 1:48 PM CDT [facility] MPV 9.7 9.3 - 12.2 FL 04/25/2023 1:48 PM CDT [facility] CBC COMMENT AUTOMATED RBC MORPHOLOGY AND PLATELET EVALUATION NORMAL 04/25/2023 1:48 PM CDT [facility] NEUTROPHILS % 84.8 % 04/25/2023 1:48 PM CDT [facility] LYMPHOCYTES % 9.4 % 04/25/2023 1:48 PM CDT [facility] MONOCYTES % 4.3 % 04/25/2023 1:48 PM CDT [facility] EOSINOPHILS 0.5 % 04/25/2023 1:48 PM CDT [facility] BASOPHILS 0.7 % 04/25/2023 1:48 PM CDT [facility] IMMATURE GRANS % 0.3 % 04/25/20 1:48 PM CDT [facility] NRBC 0.0 % 04/25/2023 1:48 PM CDT [facility] ABS. NEUTROPHILS TOTAL 6.47 1.80 - 7.70 x10'3/uL 04/25/2023 1:48 PM CDT [facility] ABS. LYMPHOCYTES 0.72(L) 1.00 - 4.80 x10'3/uL 04/25/2023 1:48 PM CDT [facility] ABS. MONOCYTES 0.33 0.24 - 0.86 x10'3/uL 04/25/2023 1:48 PM CDT [facility] ABS. EOSINOPHILS 0.04 0.04 - 0.36 x10'3/uL 04/25/2023 1:48 PM CDT [facility] ABS. BASOPHILS 0.05 0.01 - 0.08 x10'3/uL 04/25/2023 1:48 PM CDT [facility] ABS. IMMATURE GRANULOCYTES 0.02 0.00 - 0.49 x10'3/uL 04/25/2023 1:48 PM CDT [facility] ABS. NUCLEATED RBC'S 0.00 0.00 - 0.01 x10'3/uL 04/25/2023 1:48 PM CDT [facility] 04/25/2023 1:39 PM CDT Neida Epps MD LABORATORY Final Result Performing Organization Address [facility] de Phone Number [facility] [address] [place] [address], * HCG QUANT (SERUM)-CHORIONIC GONADOTROPIN (04/25/2023 1:39 PM CDT) HCG QUANTITATIVE 32 MIU/ML 04/25/20 2:18 PM CDT [facility] Comment: WEEKS OF ? REFERENCE RANGES [...] CDT Neida Epps MD LABORATORY Final Result [facility] [address] [place] [address], documented in this encounter Visit Diagnoses Diagnosis Threatened , antepartum (HHS/HCC)- Primary Threatened , antepartum documented in this encounter Care Teams Geek Squad Agent Relationship Specialty Start Date End Date Sahil Flores MD [facility] [place] [address] PCP - General FAMILY MEDICINE SPORTS MEDICINE 03/06/21 documented as of this encounter
--- OUTSIDE RECORDS SUMMARY | 2024-08-16 03:18 | XMS_ITS | Clinical Summary ---
Author Organization [facility] Address [address] [place] [address] Care Team Providers Care Box Toe Maker Name Role Phone Unavailable Primary Care Provider Unavailabl e Source Comments [facility],non-owned Affiliates and Associated Physician Practices is amultiple site organization consisting of ambulatory clinics and hospital sitesin [place], [place], [place] and [place]. This disclosure is being madepursuant to the Care Everywhere program and may not contain all information available regarding this patient. Last updated 18.[facility] Active Problems Problem Noted Date Diagnosed Date Second 04/11/2021 Small for gestational age (SGA) 04/11/2021 Rh negative status during in second tr imester 03/16/2021 Social History Tobacco Use Types Packs/Day Years Used Date Smoking Tobacco: Never Assessed Sex and Gender Information Value Date Recorded Sex Assigned at Not on file Gender Identity Not on file Sexual Orientation Not on file Last Filed Vital Signs Vital Sign Reading Time Taken Comments Blood Pressure 105/63 05/21/2021 8:35 AM CDT Pulse 94 05/21/2021 8:35 AM CDT Temperature - - Respiratory Rate 18 05/10/2021 10:03 AM CDT Oxygen Saturation - - Inhaled Oxygen Concentration - - Weight - - Height - - Body Mass Index - - Plan of Treatment Health Maintenance Due Date Last Done Comments PAP SMEAR 1990 HIV SCREENING 2005 HEPATITIS C SCREENING 06/09/2008 DTAP/TDAP/TD VACCINES (1 - Tdap) 2009 HEPATITIS B VACCINE (1 of 3 - 19+ 3-dose series) 2009 COVID-19 VACCINE ( - 2023-2 5 season) 2024 INFLUENZA VACCINE (#1) 2024 DEPRESSION SCREENING 08/04/2024 ZOSTER VACCINE (1 of 2) 2040 HIB VACCINE Aged Out No longer eligi ble based on patient's age to complete this topic HPV VACCINE Aged Out No longer eligi ble based on patient's age to complete this topic MENINGOCOCCAL VACCINE Aged Out No raman fawad eligible based on patient's age to complete this topic PNEUMOCOCCAL VACCINE Aged Out No long er eligible based on patient's age to complete this topic
--- OUTSIDE RECORDS SUMMARY | 2024-08-16 03:18 | XMS_ITS | Encounter Summary ---
Author Organization [facility] Address [address] [place] [address]. [place], [place] [address] [place] [address] Care Team Providers Care Children Librarian Name Role Phone Sahil Flores MD Primary Care Provider [phone] Encounter Details Date Type Department Care Team (Latest Contact Info) Description 04/28/2023 Travel Social History Tobacco Use Types Packs/Day [...] AM DYLANT Inez Kim RN Active * Because of [...] Patrick RN Active documented in this encounter Plan of Treatment Not on file documented as of this encounter Visit Diagnoses Not on filedocumented in this encounter Care Teams Children Librarian Relationship Specialty Start Date End Date Sahil Flores MD [facility] [place] [address] PCP - General FAMILY MEDICINE SPORTS MEDICINE 03/06/21 documented as of this encounter
--- OUTSIDE RECORDS SUMMARY | 2024-08-16 03:18 | XMS_ITS | Encounter Summary ---
Author Organization [facility] Address [address] [place] [address]. [place], [place] [address] [place] [address] Care Team Providers Care Laundry Superintendent Name Role Phone Sahil Flores MD Primary Care Provider [phone] Reason for Visit * Reason Comments (Labor) * Auth/Cert Specialty Diagnoses / Procedures Referred By Pasquale t Referred To Contact Diagnoses BREECH PRESENTATION, IUGR Procedures NONE PRIMARY SECTION Referral ID Status Reason Start Date Expiration Date Visits Re quested Visits Authorized [id number] 1 1 Encounter Details Date Type Department Care Team (Latest Contact Info) Description 05/25/2021 9:51 AM CDT - 05/27/2021 2:50 PM CDT Hospital Encounter [facility] [address] [place], [place] [phone] Neida Quintero MD [address] [place], [place] [phone] (Labor) Discharge Disposition: Home or Self Care (Routine [...] Sign Reading Time Taken Comments Blood Pressure 117/56 05/27/2021 8:30 AM CDT Pulse 87 05/27/2021 8:30 AM CDT Temperature 36.8 ??C (98.3 ??F) 05/27/2021 8:30 AM CD T Respiratory Rate 20 05/27/2021 8:30 AM CDT Oxygen Saturation 97% 05/27/2021 8:30 AM CDT Inhaled Oxygen Concentration - - [...] DISCHARGE SUMMARY Sara Read - 1990 - [id number] - [id number] Admission Date: 05/25/2021 Discharge Date: 05/27/21 Admitting Physician: Dr. Quitnero Discharge Physician: Dr. Hali Aguayo DO Admitting [...] delivery. Follow-Up Appointments Follow-Up Numbers SOGA: SOGA: [phone] Gumming Machine Operator: [facility]: [phone] Home Health: Centrifuge Separator Operator: [phone] documented in this encounter Medications at Time of Discharge buPROPion XL 300 MG 24 hr tablet Take 300 mg by mouth daily. vitamin 27-1 MG tablet Take 1 tablet by mouth daily. documented as of this encounter Progress Notes * Hali Aguayo DO - 05/26/2021 2:02 PM CDT Section Progress Note Subjective: gregg [place] now POD #1 s/p PLTCS. Pain controlled. [...] and IUGR - AFVSS 2) Plan: 1) [facility] 2) Home tomorrow 3) Incision check in [...] gases, test blood, placenta Anesthesia: CSE-jose angel Robledo Surgeon: sona Onyx Chip Terrazzo Worker: x Estimated Blood Loss: 500cc NEIDA QUINTERO [...] aspect of this incision was grasped with [place] clamps, tented up,??and dissected off of the rectus muscles below both bluntly and with Gupta scissors. ??Attention was turned to the superior aspect of this incision which in a similar fashion was grasped with [place] clamps tented up and dissected off of [...] Cord was doubly clamped and cut and was carried to the warmer. ??Cord blood [...] Results * RHOGAM (05/26/2021 6:00 AM CDT) SCREEN NEGATIVE 05/26/2021 7:30 AM CDT [facility] 05/26/2021 6:00 AM CDT us Neida Quintero MD BLOOD BANK PRODUCT ORDERABLES Final Result [facility] [address] [place] [address], [place] [phone] * (ABNORMAL) CBC, AUTO, NO DIFF (05/26/2021 6:00 AM CDT) Pathologist [facility] WBC 11.3(H) 4.8 - 10.8 x10'3/uL 05/26/2021 6:44 AM CDT [facility] RBC 3.68(L) 4.10 - 5.10 x10'6/uL 05/26/2021 6:44 AM CDT [facility] HGB 12.0 12.0 - 16.0 G/DL 05/26/2021 6:44 AM CDT [facility] HCT 35.8(L) 36 - 46 % 05/26/2021 6:44 AM CDT [facility] MCV 97.3 80 - 100 FL 05/26/2021 6:44 AM CDT [facility] MCH 32.6 26.0 - 34.0 PG 05/26/2021 6:44 AM CDT [facility] MCHC 33.5 31.0 - 37.0 G/DL 05/26/2021 6:44 AM CDT [facility] RDW 14.0 11.5 - 14.5 % 05/26/2021 6:44 AM CDT [facility] PLT 222 150 - 350 x10'3/uL 05/26/2021 6:44 AM CDT [facility] MPV 9.9 7.0 - 10.4 FL 05/26/2021 6:44 AM CDT [facility] 05/26/2021 6:00 AM CDT Neida Quintero MD LABORATORY Final Result Performing Organization Address [facility]/ZIP Co de Phone Number [facility] [address] [place] [address], * RHOGAM CANDIDACY (05/26/2021 5:14 AM CDT) Pathologist [facility] MOM'S RHOGAM STATUS PATIENT IS AN RH IMMUNE GLOBULIN CANDIDATE 05/26/2021 5:36 AM CDT [facility] Comment: ADDITIONAL BLOOD BANK TUBE NEEDED CALLED RESULT TO SHANTI YOUNG IN [facility] AT [phone] EBJ READ BACK AND VERIFIED 05/26/2021 5:14 AM CDT us Hali Aguayo DO BLOOD BANK TEST ORDERABLES Final Result Performing Organization Address [facility]/ZIP Co de Phone Number [facility] [address] [place] [address], [place] [phone] * Pathology (05/25/2021 7:45 AM CDT) Pathologist [facility] COPATH REPORT ?[facility] ? [address] ?[place], [place] [phone] ? [phone] ? Department of Pathology ? Pathology Report ? Surgical Pathology Report Patient Name: SARA READ ? : 1990 (Age: 30) ?Location: [facility] Gender: F ?Collected Date: 05/25/2021 Med Rec #: [id number] ?Date Received: 05/28/2021 Date Reported: 05/30/2021 Provider: [...] diagnosis. Clinical History IUGR. Gestational age: 37 /. Weight: 2560gr. : 9-9 Gross Description The [...] to show no discrete areas of consolidation. [facility] sections are submitted in cassettes 1-4. ?? AB/plb ?? :pb Billing Fee Code(s): 34197 [facility] 05/25/2021 7:45 AM CDT 05/28/2021 7:45 AM CDT Comment:PLACENTA AND UMBILIC AL CORD, us Neida Quintero MD PATHOLOGY/CYTOLOGY ORDERABLES Final Result [facility] [address] [place] [address], documented in this encounter Visit Diagnoses Diagnosis delivery delivered (HHS/HCC)- Primary delivery, without mention of indication, delivered, with or without mention of antepartum condition delivery delivered (HHS/HCC) delivery, without mention of indication, delivered, with or without mention of antepartum condition (HHS/HCC) state, incidental Poor growth affecting management of mother in third trimester (HHS/HCC) Breech presentation on examination, single or unspecified fetus (HHS/HCC) documented in this encounter Admitting Diagnoses Diagnosis (HHS/HCC) state, incidental documented in this encounter Administered [...] Given 05/25/2021 8:23 PM CDT 150 mg ceFAZolin (ANCEF) 2 g in sterile water 20 mL IV 2 g, Intravenous, at 240 mL/hr, scallop shucker, 1 dose, On Fri05/25/21 at 1215, Give 2 gram dose for patients less than 120 kg. Give within 60 minutes of surgical incision., C Section Pre-Op Given 05/25/2021 12:09 PM CDT 2 g 240 mL/hr diphenhydrAMINE (BENADRYL) injection 12.5 mg 12.5 mg, [...] Given 05/27/2021 2:11 AM CDT 600 mg ketorolac (TORADOL) injection 30 mg 30 mg, Intravenous, Every 6 hours, 4 doses, First dose on Fri05/25/21 at 1900, Last dose on 05/26/21 at 1300, For IV administration, give over 15 seconds., Post-Op Given 05/26/2021 1: 43 PM CDT 30 mg Given 05/26/2021 7:05 AM CDT 30 mg Given 05/26/2021 12:54 AM CDT 30 mg lactated ringers infusion at 125 mL/hr, Intravenous, Continuous, Starting on Fri05/25/21 at 1100, Until Fri05/25/21 at 1350 New Bag 05/25/2021 12:35 PM CDT New Bag 05/25/2021 11:49 AM CDT 125 mL/hr New Bag 05/25/2021 10:48 AM CDT 125 mL/hr meperidine (DEMEROL) 2 mg/mL in sodium chloride 0.9 % 250 mL epidural Epidural, Continuous, Starting on Fri05/25/21 at 1145, Until 05/26/21 at 1117, *High Alert* New Bag 05/25/2021 12:38 PM CDT 10 mL/hr 10 mL/hr naLOXone (NARCAN) 0.04 mg in sodium chloride (PF) 0.9 % IV syringe 0.04 mg, Intravenous, Every 5 min PRN, Other, for itching if?diphenhydramine is not effective, 4 doses, Starting on Fri05/25/21 at 1115, Until [place] 05/27/21 at 1728, NALOXONE DOSE/DILUTION Dilute naloxone [...] pruritis, Starting on Fri05/25/21 at 1115, Until [place] 05/27/21 at 1728 naLOXone (NARCAN) injection 0.4 mg 0.4 mg, Intravenous, As needed, Opioid reversal, POSS of 4, if patient exhibits somnolence, excessive sedation, or respiratory rate is less than 8 breaths per minute., 2 doses, Starting on Fri05/25/21 at 1115, Until 05/27/21 at 1728, Administer every 2 minutes as needed for 2 doses. rho D immune globulin (RHOPHYLAC) injection 300 mcg 300 mcg, Intravenous, Once, 1 dose, On 05/26/21 at 1300, Prevention of rhesus (Rh) isoimmunization: Infuse at 2 mL per 5 to 15 seconds. Treatment of ITP: Infuse over 3 to 5 minutes. Given 05/26/2021 1:44 PM CDT 300 mcg senna-docusate (SENOKOT-S) 8.6-50 MG tablet 1 tablet 1 tablet, Oral, 2 times daily, First dose on 05/26/21 at 0900, Until Discontinued Given 05/27/2021 10:13 [...] daily Do not break, chew, or crush. 1704 (Not Given - Provider: Mayra Hidalgo RN - Reason: Schedule Changed)2022 (Given - Provider: Nicolle Keen RN) 1344 (Not Given - Provider: Francesca Cox RN - Reason: Patient/family declined)220 (Not Given - Provider: Melba Damon RN - Reason: Patient/family declined) 0954 (Not Given - Provider: Yenny Zuniga RN - Reason: Patient/family declined) ceFAZolin (ANCEF) 2 g in sterile water 20 mL IV (COMPLETED) 2 g, Intravenous, at 240 mL/hr, scallop shucker, 1 dose, On Fri05/25/21 at 1215, Give [...] Yenny Zuniga, TERI)1318 (Given - Provider: Yenny Zuniga RN) ketorolac (TORADOL) injection 30 mg (COMPLETED)(Linked Group 1) 30 mg, Intravenous, Every 6 hours, 4 doses, First dose on Fri05/25/21 at 1900, Last dose on Fri05/26/21 at 1300, For IV administration, give over 15 seconds., Post-Op 1839 (Given - Provider: Nicolle Keen RN) 0054 (Given - Provider: Nicolle Keen RN)0705 (Given - Provider: Francesca Cox RN)1343 (Given - Provider: Francesca Cox, TERI) rho D immune globulin (RHOPHYLAC) injection 300 mcg (COMPLETED) 300 mcg, Intravenous, Once, 1 dose, On 05/26/21 at 1300, Prevention of rhesus (Rh) isoimmunization: Infuse at 2 mL per 5 to 15 seconds. Treatment of ITP: Infuse over 3 to 5 minutes. 1344 (Given - Provider: Francesca Cox RN) senna-docusate (SENOKOT-S) 8.6-50 MG tablet 1 tablet 1 tablet, Oral, 2 times daily, First dose on 05/26/21 at 0900, Until Discontinued 1002 (Given - Provider: Francesca Cox RN)2204 (Given - Provider: Melba Damon RN) 1013 (Given - Provider: Yenny Zuniga, TERI) Continuous Medication Order 05/25/2021 05/26/2021 05/27/2021 lactated ringers infusion (CANCELED) at 125 mL/hr, [...] mL epidural (CANCELED) Epidural, Continuous, Starting on 05/25/21 at 1145, Until 05/26/21 at 1117, *High Alert* 1238 (New Bag - Provider: Inez Casiano RN) oxytocin (PITOCIN) 30 units in NS 500 mL infusion 0-300 mL/hr, Intravenous, Continuous, Starting on Fri05/25/21 at 1415, Until 05/27/21 at 1728, Initial rate at 300 mL/hr [...] Fever, Starting on Fri05/25/21 at 1346, Until 05/27/21 [...] RN)1439 (Given - Provider: Yenny Zuniga RN) zzwjkmejd-ldciihxc-kwhwlydi one (MYLANTA MAXIMUM STRENGTH) [id number] mg/30mL suspension 10 mL, Oral, Every 4 hours PRN, Indigestion, Heartburn, Starting on Fri05/25/21 at 1346, Until 05/27/21 at 1728, Shake Well, Post-Op metoclopramide (REGLAN) tablet 10 mg 10 mg, Oral, Every 6 hours PRN, Nausea, Vomiting, Starting on Fri05/25/21 at 1346, Until 05/27/21 at 1728, If no relief from ondansetron [...] pruritis, Starting on Fri05/25/21 at 1115, Until Fri05/27/21 at 1728 naLOXone (NARCAN) injection 0.4 mg [...] Vomiting, Starting on Fri05/25/21 at 1346, Until 05/27/21 at 1728, Discontinue IV Zofran once able to take PO, Post-Op Linked Groups Order Group 1: ketorolac (TORADOL) injection 30 mg (COMPLETED)Jump to med 30 mg, Intravenous, Every 6 hours, 4 doses, First dose on Fri05/25/21 at 1900, Last dose on 05/26/21 at 1300, For IV administration, give over 15 seconds., Post-Op Followed by ibuprofen (MOTRIN) tablet 600 mgJump to med 600 mg, Oral, Every 6 hours, First dose on 05/26/21 at 1900, Until Discontinued, Post-Op documented in this encounter Care Teams Laundry Superintendent Relationship Specialty Start Date End Date Sahil Flores MD [address] [place] [address] PCP - General FAMILY MEDICINE SPORTS MEDICINE 03/06/21 documented as of this encounter
--- OUTSIDE RECORDS SUMMARY | 2024-08-16 03:18 | XMS_ITS | Encounter Summary ---
Author Organization [facility] Address [facility]. [place], [place] [address] [place] [address] Care Team Providers Care Rn Clinical Name Role Phone Sahil Flores MD Primary Care Provider [phone] Encounter Details Date Type Department Care Team (Late st Contact Info) Description 04/28/2023 Orders Only [facility] [address] [place], [place] [phone] Neida Epps MD [address] [place] [address] Social History Tobacco Use Types Packs/Day Years [...] documented as of this encounter Results * HCG QUANT (SERUM)-CHORIONIC GONADOTROPIN (04/28/2023 10:35 AM CDT) [facility] HCG QUANTITATIVE 2 MIU/ML 04/28/20 12:03 PM CDT [facility] Comment: WEEKS OF ? [...] 2 - 3 MONTHS ?10,000 - 100,000 04/28/2023 10:3 5 AM CDT us Neida Epps MD LABORATORY Final Result [facility] [address] [place] [address], documented in this encounter Visit Diagnoses Diagnosis Threatened , antepartum ([facility])- Primary Threatened , antepartum documented in this encounter Care Teams Rn Clinical Relationship Specialty Start Date End Date Sahil Flores MD [address] [place] [address] PCP - General FAMILY MEDICINE SPORTS MEDICINE 03/06/21 documented as of this encounter
--- OUTSIDE RECORDS SUMMARY | 2024-08-16 03:18 | XMS_ITS | Encounter Summary ---
Author Organization [facility] Address [address] [place] [address] [place] [address] Care Team Providers Care Top Frame Fitter Name Role Phone Unavailable Primary Care Provider Unavailabl e Reason for Visit * Reason Comments Ultrasound FAD NST Encounter Details Date Type Department Care Team (Latest Contact Info) Description 04/11/2021 7:30 AM CDT - 04/11/2021 11:59 PM CDT Hospital Encounter [facility] Maternal & Care [address] [place] [address] Ricardo Walden MD Discharge Disposition: Home or [...] Sign Reading Time Taken Comments Blood Pressure 106/59 04/11/2021 8:22 AM CDT Pulse 83 04/11/2021 8:22 AM CDT Temperature - - Respiratory Rate 18 04/11/2021 8:22 AM CDT Oxygen Saturation - - Inhaled Oxygen Concentration - - Weight - - Height - - Body Mass Index - - documented in this encounter Progress Notes * Angelina Bernal RN - 04/11/2021 9:13 AM CDT PT. SCREENED FOR COVID 19 BEFORE ENTERING OFFICE, SEE SEPARATE NOTE. Pt here for NST and BPP visit. Pt accompanied by sig other. Pt reports feeling movement. She reports she has some [place] contractions, but nothing painful or regular. Pt denies loss of fluid, vaginal bleeding, epigastric pain or unrelieved headaches. No edema at this time, pt does report some ankle swelling, bilaterally after a busy day at work . [facility] 03/11 Dr. Walden to review NST, via remote, reactive. Name: Sara Kimble Date of : 1990 Today's Date: 04/11/2021 30w6d NST RESULTS (ROY) OBJECTIVE FINDINGS , Pulse: 83, Resp: 18, BP: 106/59 NST Indication(s): Small for dates Uterine Irritability: Yes Contractions: Not present OBJECTIVE FINDINGS Movement: Present Monitoring Mode: External Baseline: 140 BPM Variability: Moderate Decelerations: None Accelerations: Yes OTHER INFORMATION Angelina Bernal RN documented in this encounter Plan of Treatment Not on file documented as of this encounter Procedures Procedure Name Priority Date/Time Associated Diagnosis Comments BIOPHYSICAL PROFILE W NST Routine 04/11/2021 7:41 AM CDT Rh negative status during in second trimester (HCC) documented in this encounter Results * BIOPHYSICAL PROFILE W NST (04/11/2021 7:41 AM CDT) Anatomical Region Laterality Modality Other 04/11/2021 7:41 AM CDT Narrative 04/11/2021 8:53 AM CDT ? - [facility] Maternal Medicine ? Maternal & Care Center ?PHONE: ??FAX: ? Pat. Name: ?SARA KIMBLE Estrellita. No: ?[id number] Study Date: ?? 04/11/2021 ??7:41am , Age: ? 1990, 30 Pregnancies: ?? 2, Para 0 Height: ? 67 in Weight: ? 140 lb LMP: ?09/07/2020 GA by LMP: ?30w6d GA by Base: ?? 30w6d ?? JOSE GA Selected: ??30w6d (From [facility]) JOSE D: ?2021 Referring MD: Hali Aguayo MD [place]: ??Leona Valentino RDMS CPT4: ? 01264,79037,[id number] BMI: ?21.92 Hist/Ind: ? SGA on 03/19 ?Vyvanse use in early ?Rh negative Amniotic Fluid Index: 12.4cm (08.8-23.8) Q1: 3.8cm ??Q2: 2.9cm ??Q3: 3.0cm ??Q4: 2.7cm ?? Biophysical Profile: 05/13 Breathin ?? Tone: 2 ?? NST: 2 Movement: ??2 ?? AFV: ??2 EVAL, PLACENTA Presentation: breech Umbilical Cord: 3 Vessels Placenta: anterior Amniotic Fluid Volume: normal DOPPLER Umbilical - Mid Cord S/D ??2.87(1.91 - 3.99) ? PI ?? 1.03 (0.68 - 1.27) ? CLINICAL SUMMARY Study Number: 4 ?? A single fetus is seen in breech presentation. ??The amniotic fluid volume is within normal limits. ?? The FHR baseline was 135 bpm during today's reactive NST. ??The FHR variability was normal. ?? IMPRESSION: Single, live, intrauterine at 30w6d. ?? Amniotic fluid volume: within normal limits ?? Biophysical profile: Reassuring ?? Dopplers studies: Normal ?? RECOMMEND: Continue weekly testing and Doppler studies ?? Repeat growth in 1 week Thanks for allowing us the opportunity to care for your patient Ricardo Walden MD <Electronic Signature> ??04/11/2021 08:53am Oziel Mayers MD [facility] ORDERABLES documented in this encounter Visit Diagnoses Diagnosis Rh negative status during in second trimester (HCC)- Primary Encounter for ultrasound to check growth ([facility]) 30 weeks gestation of ([facility]) state, incidental documented in this encounter
--- OUTSIDE RECORDS SUMMARY | 2024-08-16 03:18 | XMS_ITS | Encounter Summary ---
Author Organization [facility] Address [address] [place] [address]. [place], [place] [address] [place] [address] Care Team Providers Care Thread Weaver Name Role Phone Sahil Flores MD Primary Care Provider [phone] Encounter Details Date Type Department Care Team (Latest Contact Info) Description 05/10/2021 2:30 PM CDT - 05/10/2021 3:22 PM CDT Hospital Encounter [facility] Women & Infants [address] [place], [place] [id number] Vy Salter MD [address] [place], [place] [id number] Discharge Disposition: Home or Self Care (Routine [...] Sign Reading Time Taken Comments Blood Pressure - - Pulse - - Temperature - - Respiratory Rate - - Oxygen Saturation - - Inhaled Oxygen Concentration - - Weight 75.8 kg (167 lb) 05/10/2021 1:00 PM CDT Height 170.2 cm (5' 7 ) 05/10/2021 1:00 PM CDT Body Mass Index 26.16 05/10/2021 1:00 PM CDT documented in this encounter Medications at Time [...] 12 mg, Intramuscular, Once, 1 dose, On Lore 05/10/21 at 1500, Shake Well Given 05/10/2021 2:42 PM CDT 12 mg Left Dorsal Gluteal documented in this encounter Active and Recently Administered Medications Times are shown in CDT. Scheduled Medication Order 05/08/2021 05/09/2021 05/10/2021 betamethasone acet/sodium phosphate (CELESTONE) injection 12 mg (COMPLETED) 12 mg, Intramuscular, Once, 1 dose, On Lore 05/10/21 at 1500, Shake Well 1442 (Given - Provid er: Adilene Hawkins RN) documented in this encounter Care Teams Thread Weaver Relationship Specialty Start Date End Date Sahil Flores MD [facility] [place] [address] PCP - General FAMILY MEDICINE SPORTS MEDICINE 03/06/21 documented as of this encounter
--- OUTSIDE RECORDS SUMMARY | 2024-08-16 03:18 | XMS_ITS | Encounter Summary ---
Author Organization [facility] Address [address] [place] [address]. [place], [place] [address] [place] [address] Care Team Providers Care Express Clerk Name Role Phone Sahil Flores MD Primary Care Provider [phone] Reason for Visit * Reason Onset Date Comments Post Call 06/09/2021 Encounter Details Date Type Department Care Team (Late st Contact Info) Description 06/09/2021 Telephone [facility] Women & Infants [address] [place] [address] Georgina Barton abrasive grader Call Social History Tobacco Use Types Packs/Day Years [...] Kim RN Active documented in this encounter Progress Notes * Georgina Barton RN - 06/09/2021 1:43 PM CDT Everything going well, still , no symptoms of high BP or depression. All follow up appointments made. No concerns at this time. Her stay was great and shes happy with us. documented in this encounter Plan of Treatment Not on file documented as of this encounter Visit Diagnoses Not on filedocumented in this encounter Care Teams Express Clerk Relationship Specialty Start Date End Date Sahil Flores MD [address] [place] [address] PCP - General FAMILY MEDICINE SPORTS MEDICINE 03/06/21 documented as of this encounter
--- OUTSIDE RECORDS SUMMARY | 2024-08-16 03:18 | XMS_ITS | Encounter Summary ---
Author Organization [facility] Address [address] [place] [address]. [place] [address] [place] [address] Care Team Providers Care Resin Mixer Name Role Phone Sahil Flores MD Primary Care Provider Reason for Visit * Reason Comments NST * Auth/Cert Specialty Diagnoses / Procedures Referred By Contac t Referred To Contact Diagnoses BREECH PRESENTATION, IUGR Procedures NONE PRIMARY SECTION Referral ID Status Reason Start Date Expiration Date Visits Re quested Visits Authorized [id number] 1 1 Encounter Details Date Type Department Care Team (Latest Contact Info) Description 05/24/2021 12:54 PM CDT - 05/24/2021 1:38 PM CDT Hospital Encounter [facility] Labor & Delivery [address] [place] [address] Neida Epps MD [address] [place] [address] NST Discharge Disposition: Home or Self Care (Routine [...] PM CDT documented as of this encounter Last Filed Vital Signs Vital Sign Reading Time Taken Comments Blood Pressure 111/59 05/24/2021 12:59 PM CDT Pulse 88 05/24/2021 12:59 PM CDT Temperature - - Respiratory Rate - - Oxygen Saturation - - Inhaled Oxygen Concentration - - Weight - - Height - - Body Mass Index - - documented in this encounter Discharge Instructions * Discharge Instructions* Mai Choe RN - 05/24/2021 1:04 PM CDT Discharge Instructions After NST Patient Information Call the [facility] at [phone] or return to the [facility] Infants Center if: * You experience decreased movement. * Your water breaks. Call your physician or the [facility] Infants [facility] if: * You are experiencing headaches, visual disturbances, or epigastric discomfort. * You are less than 37 weeks gestation and experiencing contractions less than 10 minutes apart for1 hour. * You are greater than 37 weeks gestation and experiencing contractions 5-10 minutes apart for 1 hour and are increasingly getting stronger in length. * Keep your next scheduled clinic visit. Additional Instructions Given: documented in this encounter Medications at Time of Discharge buPROPion XL 300 MG 24 hr tablet Take 300 mg by mouth daily. vitamin 27-1 MG tablet Take 1 tablet by mouth daily. documented as of this encounter Plan of Treatment Not on file documented as of this encounter Procedures Procedure Name Priority Date/Time Associated Diagnosis Comments NONSTRESS TEST Routine 05/24/2021 1:28 PM CDT TYPE & SCREEN Routine 04/11/2021 SYPHILIS IGG AB Routine 03/29/2021 HIV 1 ANTIGEN(S), WITH HIV-1 AND HIV-2 ANTIBODIES Routine 03/29/2021 documented in this encounter Results * TYPE & SCREEN (04/11/2021) ANTIBODY SCREEN negative Comment:actually drawn on 03/12/21 us Doc [facility] TEST ORDERABLES F inal Result * SYPHILIS IGG AB (03/29/2021) SYPHILIS IGG AB non-reacti ve Comment:actually drawn on 03/12/21 us Doc [facility]OR[facility] Final Result * HIV 1 ANTIGEN(S), WITH HIV-1 AND HIV-2 ANTIBODIES (03/29/2021) HIV 1/2 AB+ HIV1 P24 AG non-reacti ve Comment:actually drawn on 03/12/21 us Doc [facility] Final Result documented in this encounter Visit Diagnoses Not on filedocumented in this encounter Care Teams Resin Mixer Relationship Specialty Start Date End Date Sahil Flores MD [address] [place] [address] PCP - General FAMILY MEDICINE SPORTS MEDICINE 03/06/21 documented as of this encounter
--- OUTSIDE RECORDS SUMMARY | 2024-08-16 03:18 | XMS_ITS | Encounter Summary ---
Author Organization [facility] Address [address] [place] [address] [place] [address] Care Team Providers Care Cognos Architect Name Role Phone Unavailable Primary Care Provider Unavailabl e Reason for Visit * Reason Comments Ultrasound FAD NST Encounter Details Date Type Department Care Team (Latest Contact Info) Description 04/23/2021 7:30 AM CDT - 04/23/2021 11:59 PM CDT Hospital Encounter [facility] Maternal & Care [address] [place] [address] Elizabeth Thomas MD [address] [address] Discharge Disposition: Home or Self Care Social History Tobacco Use Types Packs/Day Years Used Date Smoking Tobacco: Never Assessed Comments Yes Sex and Gender Information Value Date Recorded Sex Assigned at Not on file Gender Identity Not on file Sexual Orientation Not on file documented as of this encounter Last Filed Vital Signs Vital Sign Reading Time Taken Comments Blood Pressure 109/62 04/23/2021 8:54 AM CDT Pulse 84 04/23/2021 8:54 AM CDT Temperature - - Respiratory Rate - - Oxygen Saturation - - Inhaled Oxygen Concentration - - Weight - - Height - - Body Mass Index - - documented in this encounter Progress Notes * Marija Vasquez RN - 04/23/2021 9:05 AM CDT Pt here today for ultrasound and NST. She reports feeling good movement. NST reactive, reviewed by Dr. Thomas. BPP 01/09 today for breathing. She denies cramping/contractions. Denies leakage of fluid/bleeding. Denies headaches, visual changes, edema, and epigastric pain. She is to follow up on 04/30 for repeat us/nst. She denies further questions or concerns for her care today. documented in this encounter Plan of Treatment Not on file documented as of this encounter Procedures Procedure Name Priority Date/Time Associated Diagnosis Comments BIOPHYSICAL PROFILE W NST Routine 04/23/2021 7:49 AM CDT Rh negative status during in second trimester (HCC) documented in this encounter Results * BIOPHYSICAL PROFILE W NST (04/23/2021 7:49 AM CDT) Anatomical Region Laterality Modality Other 04/23/2021 7:49 AM CDT Narrative 04/23/2021 9:15 AM CDT ? - [facility] Maternal Medicine ? Maternal & Care Center ?PHONE: ??FAX: ? Pat. Name: ?SARA KIMBLE. No: ?[id number] Study Date: ?? 04/23/2021 ??7:49am , Age: ? 1990, 30 Pregnancies: ?? 2, Para 0 Height: ? 67 in Weight: ? 140 lb LMP: ?09/07/2020 GA by LMP: ?32w4d GA by Base: ?? 32w4d ?? JOSE GA Selected: ??32w4d (From [facility]) JOSE D: ?2021 Referring MD: Hali Aguayo MD Python Consultant: ??Pamela Caicedo RDMS CPT4: ? 61915,[id number] BMI: ?21.92 Hist/Ind: ? Suspected FGR ?Vyvanse use in early ?Rh negative Heart Rate: 149 bpm Amniotic Fluid Index: 13.3cm (08.4-24.4) Q1: 3.3cm ??Q2: 2.4cm ??Q3: 3.9cm ??Q4: 3.9cm ?? Biophysical Profile: 03/13 Breathin ?? Tone: 2 ?? NST: 2 Movement: ??2 ?? AFV: ??2 EVAL, PLACENTA Presentation: breech Placenta: posterior Heart Rate: 149 bpm Amniotic Fluid Volume: normal DOPPLER Umbilical - Mid Cord S/D ??2.58(1.81 - 3.81) ? PI ?? 0.91 (0.65 - 1.23) ? CLINICAL SUMMARY Study Number: 6 ?? The FHR baseline was 140 bpm during today's reactive NST. The FHR variability was moderate and no decelerations were detected. IMPRESSION: ?? 1) Lucio gestation, 32w4d 2) The amniotic fluid volume is within normal limits 3) Umbilical Doppler waveforms reveal no evidence of increased arterial resistance 4) Reassuring biophysical profile RECOMMEND: ?? Close maternal movement monitoring while awaiting repeat Dopplers and 10-point BPP in 1 week then a repeat growth assessment in 2 weeks, with additional testing (Dopplers, BPP, etc.) at that time if / as clinically indicated Thank you for allowing us the opportunity to care for your patient. Elizabeth Thomas MD <Electronic Signature> ??04/23/2021 09:15am Oziel Mayers MD [facility] ORDERABLES documented in this encounter Visit Diagnoses Diagnosis Second ([facility]) state, incidental Small for gestational age (SGA) ([facility]) [id number] without mention of malnutrition, unspecified (weight) Rh negative status during in second trimester ([facility]) Encounter for screening for growth retardation ([facility]) 32 weeks gestation of ([facility]) state, incidental documented in this encounter
--- OUTSIDE RECORDS SUMMARY | 2024-08-16 03:18 | XMS_ITS | Encounter Summary ---
Author Organization [facility] Address [address] [place] [address]. [place], [place] [address] [place] [address] Care Team Providers Care French Professor Name Role Phone Sahil Flores MD Primary Care Provider [phone] Encounter Details Date Type Department Care Team (Latest Contact Info) Description 05/09/2023 Travel Social History Tobacco Use Types Packs/Day [...] on filedocumented in this encounter Care Teams French Professor Relationship Specialty Start Date End Date Sahil Flores MD [facility] [place] [address] PCP - General FAMILY MEDICINE SPORTS MEDICINE 03/06/21 documented as of this encounter
--- OUTSIDE RECORDS SUMMARY | 2024-08-16 03:18 | XMS_ITS | Encounter Summary ---
Author Organization [facility] Address [address] [place] [address]. [place], [place] [address] [place] [address] Care Team Providers Care Banana Loader Name Role Phone Sahil Flores MD Primary Care Provider [phone] Encounter Details Date Type Department Care Team (Late st Contact Info) Description 05/23/2021 Orders Only [facility] [address] [place], [place] [id number] Neida Epps MD [address] [place] [address] Social History Tobacco Use Types Packs/Day Years [...] documented as of this encounter Functional Status documented as of this encounter Mental Status * Question Answer Entry Date Author Status Because of a physical, mental, or emotional condition, do you have serious difficulty concentrating, remembering, or making decisions? No 05/25/2021 10:44 AM CDT Inez Kim RN A ctive documented in this encounter Plan of Treatment Not on file documented as of this encounter Results * DRUG SCREEN RAPID WITH REFLEX (05/23/2021 1:06 PM CDT) AMPHETAMINE SCREEN (U) NEGATIVE NEGATIVE 05/23/2021 3:01 PM CDT [facility] BARBITURATES SCREEN (U) NEGATIVE NEGATIVE 05/23/2021 3:01 PM CDT [facility] BENZODIAZEPINES SCREEN (U) NEGATIVE NEGATIVE 05/23/2021 3:01 PM CDT [facility] BUPRENORPHINE SCREEN (U) NEGATIVE NEGATIVE 05/23/2021 3:01 PM CDT [facility] COCAINE METABOLITES (U) NEGATIVE NEGATIVE 05/23/2021 3:01 PM CDT [facility] METHAMPHETAMINE (U) NEGATIVE NEGATIVE 05/23 3:01 PM CDT [facility] METHADONE (U) NEGATIVE NEGATIVE 05/23/2021 3:01 PM CDT [facility] OPIATE SCREEN (U) NEGATIVE NEGATIVE 021 3:01 PM CDT [facility] OXYCODONE SCREEN (U) NEGATIVE NEGATIVE 05/23/2021 3:01 PM CDT [facility] PHENCYCLIDINE PCP (U) NEGATIVE NEGATIVE 05/23/2021 3:01 PM CDT [facility] PROPOXYPHENE SCREEN (U) NEGATIVE NEGATIVE 05/23/2021 3:01 PM CDT [facility] CANNABINOIDS SCREEN (U) NEGATIVE NEGATIVE 05/23/2021 3:01 PM CDT [facility] TRICYCLIC ANTIDEPRESSANT SCREEN (U) NEGATIVE NEGATIVE 05/23/2021 3:01 PM CDT [facility] Comment: NOTE: RESULTS OF THIS DRUG SCREEN SHOULD BE USED FOR MEDICAL PURPOSES ONLY AND NOT FOR LEGAL OR EMPLOYMENT PURPOSES. POSITIVE RESULTS ARE SENT FOR CONFIRMATION. MEDICATIONS CONTAINING EPHEDRINE MAY CAUSE FALSE POSITIVE AMPHETAMINE Cut-off Concentration for a positive result AMPHETAMINE- ?500 NG/ML BARBITURATE- ?200 NG/ML BENZODIAZEPINE- ?? 150 NG/ML BUPRENORPHINE- ? 10 NG/ML COCAINE- ?150 NG/ML METHAMPHETAMINES- 500 NG/ML METHADONE- ?200 NG/ML OPIATE- ? 100 NG/ML OXYCODONE- ?100 NG/ML PCP- ? 25 NG/ML PROPOXYPHENE- ? 300 NG/ML THC- ? 50 NG/ML TCA- ?300 NG/ML URINE SPECIMEN / Unknown 05/23/2021 1:06 PM CDT Neida Epps MD URINE ORDERABLES Final Result Performing Organization Address [facility]/State/[facility] Co de Phone Number [facility] [address] [place] [address], [place] [phone] * TYPE & SCREEN (05/23/2021 1:06 PM CDT) ABO/RH O NEGATIVE 05/23/2021 2:17 PM CDT [facility] ANTIBODY SCREEN POSITIVE 05/23/2021 2:36 PM CDT [facility] SAMPLE EXPIRATION 05/26/2021,2359 05/23/2021 2:17 PM CDT [facility] ANTIBODY ID NO ALLOANTIBODIES DETECTED 05/23/2021 3:40 PM CDT [facility] COMMENT 03/12/2021 05/23/2021 3:40 PM CDT [facility] 05/23/2021 1:06 PM CDT us Neida Epps MD BLOOD BANK TEST ORDERABLES Fin al Result [facility] [address] [place] [address], [place] [phone] * (ABNORMAL) URINALYSIS (05/23/2021 1:06 PM CDT) COLOR (U) YELLOW 05/23/2021 3:06 PM CDT [facility] TRANSPARENCY CLEAR 05/23/2021 3:06 PM CDT [facility] SPECIFIC GRAVITY (U) 1.020 1.002 - 1.030 05/23/2021 3:06 PM CDT [facility] U PH 6.0 4.5 - 8.0 05/23/2021 3:06 PM CDT [facility] LEUKOCYTES (U) NEGATIVE NEGATIVE 05/23/2021 3:06 PM CDT [facility] NITRITES NEGATIVE NEGATIVE 05/23/2021 3:06 PM CDT [facility] PROTEIN (U) 1+(A) NEGATIVE 05/23/2021 3:06 PM CDT [facility] URINE GLUCOSE NEGATIVE NEGATIVE 05/23/2021 3:06 PM CDT [facility] KETONES MG/DL (U) NEGATIVE NEGATIVE 05/23/2021 3:06 PM CDT [facility] UROBILINOGEN NORMAL NORMAL EU/DL 05/23/2021 3:06 PM CDT [facility] BILIRUBIN (U) NEGATIVE NEGATIVE 05/23/2021 3:06 PM CDT [facility] BLOOD (U) 1+(A) NEGATIVE 05/23/2021 3:06 PM CDT [facility] WBC/HPF 0-5 /HPF 05/23/2021 3:06 PM CDT [facility] RBC/HPF 0-2 /HPF 05/23/2021 3:06 PM CDT [facility] EPI/HPF 5-10 /HPF 05/23/2021 3:06 PM CDT [facility] BACTERIA (U) 3+ /HPF 05/23/2021 3:06 PM CDT [facility] MUCUS 4+ 05/23/2021 3:06 PM CDT [facility] AMORPHOUS SEDIMENT TRACE 05/23/2021 3:06 PM CDT [facility] URINE SPECIMEN OBTAINED BY CLEAN CATCH PROCEDURE / Unknown 05/23/2021 1:06 PM CDT us Neida Epps MD URINE ORDERABLES Final Result [facility] [address] [place] [address], [place] [phone] * (ABNORMAL) CBC W/DIFF AUTOMATED (05/23/2021 1:06 PM CDT) WBC 12.1(H) 4.8 - 10.8 x10'3/uL 05/23/2021 1:29 PM CDT [facility] RBC 4.14 4.10 - 5.10 x10'6/uL 05/23/2021 1:29 PM CDT [facility] HGB 13.4 12.0 - 16.0 G/DL 05/23/2021 1:29 PM CDT [facility] HCT 40.2 36 - 46 % 05/23/2021 1:29 PM CDT [facility] MCV 97.1 80 - 100 FL 05/23/2021 1:29 PM CDT [facility] MCH 32.4 26.0 - 34.0 PG 05/23/2021 1:29 PM T [facility] MCHC 33.3 31.0 - 37.0 G/DL 05/23/2021 1:29 PM T [facility] RDW 13.9 11.5 - 14.5 % 05/23/2021 1:29 PM T [facility] PLT 249 150 - 350 x10'3/uL 05/23/2021 1:29 PM T [facility] MPV 9.6 7.0 - 10.4 FL 05/23/2021 1:29 PM T [facility] CBC COMMENT AUTOMATED RBC MORPHOLOGY AND PLATELET EVALUATION NORMAL 05/23/2021 1:29 PM T [facility] NEUTROPHILS % 80.8(H) 50 - 70 % 05/23/2021 1:29 PM T [facility] LYMPHOCYTES % 11.4(L) 18 - 42 % 05/23/2021 1:29 PM T [facility] MONOCYTES % 6.1 2.0 - 11.0 % 05/23/2021 1:29 PM T [facility] EOSINOPHILS 0.7(L) 1.0 - 3.0 % 05/23/2021 1:29 PM T [facility] BASOPHILS 0.3 0.0 - 1.0 % 05/23/2021 1:29 PM T [facility] IMMATURE GRANS % 0.7(H) 0.00 - 0.43 % 05/23/2021 1:29 PM T [facility] ABS. NEUTROPHILS TOTAL 9.86(H) 1.69 - 7.81 x10'3/uL 05/23/2021 1:29 PM T [facility] ABS. LYMPHOCYTES 1.38 0.21 - 5.42 x10'3/uL 05/23/2021 1:29 PM CDT [facility] ABS. MONOCYTES 0.74 0.04 - 1.37 x10'3/uL 05/23/2021 1:29 PM CDT [facility] ABS. EOSINOPHILS 0.08 0.00 - 0.68 x10'3/uL 05/23/2021 1:29 PM CDT [facility] ABS. BASOPHILS 0.04 0.00 - 0.08 x10'3/uL 05/23/2021 1:29 PM CDT [facility] ABS. IMMATURE GRANULOCYTES 0.09(H) 0.00 - 0.06 x10'3/uL 05/23/2021 1:29 PM CDT [facility] 05/23/2021 1:06 PM CDT us Neida Epps MD LABORATORY Final Result [facility] [address] [place] [address], [place] [phone] * CULTURE URINE (05/23/2021 1:05 PM CDT) SPEC DESCRIPTION URINE CLEAN CATCH 05/23/2021 1:02 PM CDT [facility] SPECIAL REQUESTS NO SPECIAL REQUEST 05/23/2021 1:02 PM CDT [facility] CULTURE RESULT NO GROWTH 2 DAYS 05/25/2021 8:30 AM CDT [facility] URINE SPECIMEN OBTAINED BY CLEAN CATCH PROCEDURE / Unknown 05/23/2021 1:05 PM CDT 05/23/2021 1:06 PM CDT us Neida Epps MD MICROBIOLOGY - GENERAL ORDERAB LES Final Result [facility] [address] [place] [address], [place] [phone] [facility] [address] [place] [address], [place] [phone] documented in this encounter Visit Diagnoses Diagnosis Pre-operative laboratory examination- Primary Pre-procedural laboratory examination Multiple gestation with malpresentation of one fetus or more, delivered (HHS/HCC) Multiple gestation with malpresentation of one fetus or more, delivered Intrauterine growth restriction affecting care of mother, antepartum, third trimester, fetus 1 (HHS/HCC) documented in this encounter Care Teams Banana Loader Relationship Specialty Start Date End Date Sahil Flores MD [address] [place] [address] PCP - General FAMILY MEDICINE SPORTS MEDICINE 03/06/21 documented as of this encounter
--- OUTSIDE RECORDS SUMMARY | 2024-08-16 03:18 | XMS_ITS | Encounter Summary ---
Author Organization [facility] Address [address] [place] [address]. [place], [place] [address] [place] [address] Care Team Providers Care Industry Operations Investigator Name Role Phone Sahil Flores MD Primary Care Provider [phone] Encounter Details Date Type Department Care Team (Latest Contact Info) Description 04/25/2023 Travel Social History Tobacco Use Types Packs/Day [...] on filedocumented in this encounter Care Teams Industry Operations Investigator Relationship Specialty Start Date End Date Sahil Flores MD [facility] [place] [address] PCP - General FAMILY MEDICINE SPORTS MEDICINE 03/06/21 documented as of this encounter
--- OUTSIDE RECORDS SUMMARY | 2024-08-16 03:18 | XMS_ITS | Patient Health Summary ---
Author Organization [facility] Address [address] [facility] [place] [address] Care Team Providers Care Ships Or Barges Loader Name Role Phone Unavailable Primary Care Provider Unavailabl e Note from [facility],non-owned Affiliates and Associated Physician Practices is amultiple site organization consisting of ambulatory clinics and hospital sitesin [place], [place], [place] and [place]. This disclosure is being madepursuant to the Care Everywhere program and may not contain all information available regarding this patient. Last updated 18.[facility] Active Problems Problem Noted Date Diagnosed Date [...] - - Body Mass Index - - Procedures * BIOPHYSICAL PROFILE W NST(Performed 05/21/2021) Performed for Rh negative status during in second trimester (HCC) * BIOPHYSICAL PROFILE W NST(Performed 05/14/2021) Performed for Rh negative status during in second trimester ([facility]) * BIOPHYSICAL PROFILE W NST(Performed 05/07/2021) Performed for Rh negative status during in second trimester ([facility]) * BIOPHYSICAL PROFILE W NST(Performed 04/30/2021) Performed for Rh negative status during in second trimester ([facility]) * BIOPHYSICAL PROFILE W NST(Performed 04/23/2021) Performed for Rh negative status during in second trimester ([facility]) * BIOPHYSICAL PROFILE W NST(Performed 04/16/2021) Performed for Rh negative status during in second trimester ([facility]) * BIOPHYSICAL PROFILE W NST(Performed 04/11/2021) Performed for Rh negative status during in second trimester ([facility]) * SONOGRAM - COMPLETE(Performed 04/02/2021) Performed for Rh negative status during in second trimester ([facility]) * SONOGRAM - COMPLETE(Performed 03/19/2021) Performed for Rh negative status during in second trimester ([facility]) * SONOGRAM - COMPLETE(Performed 02/08/2021) Results * BIOPHYSICAL PROFILE W NST (05/21/2021 7:45 AM CDT) Only the most recent of7 resultswithin the time period is included. Anatomical Region Laterality Modality Other 05/21/2021 7:45 AM CDT Narrative 05/21/2021 10:22 AM CDT ? - [facility] ?PHONE: ??FAX: ? Pat. Name: ?SARA KIMBLE. No: ?[id number] Study Date: ?? 05/21/2021 ??7:45am , Age: ? 1990, 30 Pregnancies: ?? 2, Para 0 Height: ? 67 in Weight: ? 140 lb LMP: ?09/07/2020 GA by LMP: ?36w4d GA by Base: ?? 36w4d ?? JOSE GA by US: ? 34w6d ?? JOSE GA Selected: ??36w4d ([facility]) JOSE D: ?2021 Referring MD: Hali Aguayo MD Claims Adjuster Supervisor: ??Pamela Caicedo RDMS CPT4: ? 08554,[id number] BMI: ?21.92 Hist/Ind: ? Suspected FGR ?Vyvanse use in early ?Rh negative MEASUREMENTS & AGE ? GROWTH EVALUATION Measurement ??GA ? Range ? Srce %for GA Ratios ----- ---- ------- BPD ??8.2 cm 32w6d (90h8j-45s6q) Hadl BPD <01 FL/BPD 0.85 (0.71 - 0.87) HC ??32.3 cm 36w4d (75i6w-43r2v) Hadl HC ??22% FL/AC ??0.23 (0.20 - 0.24) AC ??29.7 cm 33w5d (28b1n-41i7c) Hadl AC ??2% HC/AC ??1.09 (0.92 - 1.11) FL ?? 7.0 cm 35w5d (19h9e-73d5a) Hadl FL ??25% CI ? 0.68 (0.70 - 0.86* HL ?? 5.9 cm 34w1d (16a5j-67h0o) Darrell HL ??8% GA for sonogram 34w6d (93p7q-94x3u) ?? Weight Estimate: based on (BPD,HC,AC,FL) Hadlock ?Weight: 2437 gm (2081-2793gm) Had ? : 5lbs, 5oz ? Normal: 2942 gm (2207- 3677gm) Had ? Wt% ? 9% for 36w4d Heart Rate: 131 bpm Amniotic Fluid Index: 09.5cm (07.6-24.6) Q1: 3.7cm ??Q2: 2.5cm ??Q3: 1.3cm ??Q4: 1.9cm ?? Biophysical Profile: 05/13 Breathin ?? Tone: 2 ?? NST: 2 Movement: ??2 ?? AFV: ??2 EVAL, PLACENTA Presentation: demetrius breech Placenta: posterior:fundal Heart Rate: 131 bpm Amniotic Fluid Volume: normal DOPPLER Umbilical - Mid Cord S/D ??2.38(1.61 - 3.46) ? PI ?? 0.90 (0.57 - 1.15) ? Middle Cerebral Artery PSV ??48.6cm/s PI ?? 1.28 (1.34 - 2.44) * ?? Med PSV 55.0cm/s MoM 0.88(<1.5) CLINICAL SUMMARY Study Number: 10 ?? A single fetus is seen in demetrius breech presentation. ??The measurements today are consistent with less than expected size for the JOSE D provided. ??The JOSE D selected is based on LMP and a prior ultrasound. ??The amniotic fluid volume is within normal limits. ?? The FHR baseline was 140 bpm during today's NST. ??The FHR variability was moderate. ??Reactive NST without decelerations. IMPRESSION: Single, live intrauterine at 36w4d ?? Amniotic fluid volume: Normal ?? size is IUGR/SGA ??with BPD and AC measuring small for gestational age ?? Biophysical profile: Reassuring (05/13) ?? Doppler studies: consistent with cephalization of blood flow RECOMMEND: Continue twice weekly NST and weekly BPP, Doppler and АННА. ??Repeat NST scheduled for 05/24/21. scheduled for 05/25/21 Thank you for allowing us the opportunity to care for your patient. ?? Dante Bardales MD <Electronic Signature> ??05/21/2021 10:22am Oziel Mayers MD [facility] ORDERABLES * SONOGRAM - COMPLETE (04/02/2021 7:35 AM CDT) Only the most recent of3 resultswithin the time period is included. Anatomical Region Laterality Modality Other 04/02/2021 7:35 AM CDT Narrative 04/02/2021 9:35 AM CDT ?[facility] ?PHONE: ??FAX: ? Pat. Name: ?SARA KIMBLE Pat. No: ?[id number] Study Date: ?? 04/02/2021 ??7:35am , Age: ? 1990, 30 Pregnancies: ?? 2, Para 0 Height: ? 67 in Weight: ? 140 lb LMP: ?09/07/2020 GA by LMP: ?29w4d GA by Base: ?? 29w4d ?? JOSE GA by US: ? 28w0d ?? JOSE GA Selected: ??29w4d (LMP) JOSE D: ?2021 Referring MD: Hali Aguayo MD Claims Adjuster Supervisor: ??Leona Valentino RDMS CPT4: ? [id number],[id number] BMI: ?21.92 Hist/Ind: ? SGA on 03/19 ?Vyvanse use in early ?Rh negative MEASUREMENTS & AGE ? GROWTH EVALUATION Measurement ??GA ? Range ? Srce %for GA Ratios ----- ---- ------- BPD ??6.7 cm 26w6d (41t6b-13h9e) Hadl BPD <01 FL/BPD 0.79 (0.71 - 0.87) HC ??27.3 cm 29w5d (11e2w-00b3g) Hadl HC ??20% FL/AC ??0.23 (0.20 - 0.24) AC ??23.0 cm 27w2d (41b9v-87w0z) Hadl AC ??2% HC/AC ??1.19 (0.98 - 1.17* FL ?? 5.3 cm 28w0d (62d5f-98h2j) Hadl FL ??5% CI ? 0.65 (0.70 - 0.86* HL ?? 4.9 cm 28w5d (72f0j-41s8i) Darrell HL ??34% GA for sonogram 28w0d (00q6k-54q3z) ?? Weight Estimate: based on (BPD,HC,AC,FL) Avg ?Weight: 1154 gm (983-1325gm) Hadl ? : 2lbs, 8oz ? Normal: 1487 gm (1115- 1859gm) Had ? Wt% ? 4% for 29w4d Heart Rate: 156 bpm Amniotic Fluid Index: 14.3cm (09.1-23.3) Q1: 4.4cm ??Q2: 4.7cm ??Q3: 2.3cm ??Q4: 3.0cm ?? Biophysical Profile: 05/13 Breathin ?? Tone: 2 ?? NST: 2 Movement: ??2 ?? AFV: ??2 EVAL, PLACENTA Presentation: breech Umbilical Cord: 3 Vessels Placenta: anterior Heart Rate: 156 bpm Amniotic Fluid Volume: normal DOPPLER Umbilical - Mid Cord S/D ??2.79(1.99 - 4.15) ? PI ?? 0.97 (0.71 - 1.30) ? Anatomy!Normal!Abnormal!Suboptimal!Prev. Seen!Comments Stomach ?! ?? x ??! ?! ?! ?! Bladder ?! ?? x ??! ?! ?! ?! CLINICAL SUMMARY Study Number: 3 ?? No abnormalities were detected during today's limited review of the anatomy. The FHR baseline was 135 bpm during today's reactive NST. The FHR variability was moderate and no decelerations were detected. IMPRESSION: ?? 1) Lucio gestation, 29w4d 2) Today? s AC measurement <3rd centile is consistent with growth restriction 3) The amniotic fluid volume is within normal limits 4) Umbilical Doppler waveforms reveal no evidence of increased arterial resistance 5) Reassuring biophysical profile NOTE: The patient was advised that ultrasound does not allow detection of all structural or chromosomal abnormalities. ?? RECOMMEND: ?? Close maternal movement monitoring and weekly Dopplers and 10-point BPPs while awaiting a repeat growth assessment in 3 weeks, with additional testing (Dopplers, BPP, etc.) at that time if / as clinically indicated Thank you for allowing us the opportunity to care for your patient. Elizabeth Thmoas MD <Electronic Signature> ??04/02/2021 09:34am Oziel Mayers MD [facility] ORDERABLES
--- OUTSIDE RECORDS SUMMARY | 2024-08-16 03:18 | XMS_ITS | Continuity of Care Document ---
Author Organization [facility] Address [address] [place] [address] Care Team Providers Care Radial Drill Operator Name Role Phone UNKNOWN, DOCTOR Primary Care Provider Unavail able MD Ricardo George Admit Provider MD Ricardo George Attending Provider Care Teams Patient Care Team Team Status: Active Member Role Status Dates DOCTOR UNKNOWN Primary Care Provider Active Visit Care Team Team Status: Inactive Member Role Status Dates DOCTOR UNKNOWN Primary Care Provider Active Ricardo Duarte MD Admit Provider, Attending Pro vider Active Chief Complaint and Reason for Visit Chief Complaint Contractions Allergies, Adverse Reactions, Alerts No known allergies Social History Smoking Status Status Start Date End Date Date of Observa tion Never smoked tobacco (finding) November 23, 2019 10:05am Observation Status Observation Response Date of Response alcohol intake current November 23, 2019 10:05am Additional Data Assigned Sex Female Family History Relationship Condition Age at Onset Recorded Date/T alana grandparent Heart disease Unknown Carcinoma of colon Unknown Problems Active Problems Medical Problem Onset Date Status Disorder of skin and subcutaneous tissue Active Chronic pain of both shoulders A ctive Mastodynia Active Macromastia Active Chronic back pain Active Chronic neck pain Active Abdominal pain Active Constipation Active Inactive/Resolved Problems Medical Problem Onset Date Status Upper respiratory infection Reso lved Medications Medication Status Dose Units Route Directions Qty Days St art Date End Date Instructions Fluticasone Propionate (Flonase Allergy Relief) 50 mcg/actuation spray,suspens ion Active 1 SPRAY NASAL Q12H 15.8 10 August 25, 2019 1:00am administer into each nostril Procedures Procedure Date Performed Status Urine Culture June 03, 2024 active Relevant Diagnostic Tests and/or Laboratory Data Laboratory Results Test Date/Time Result Interpretation Reference Range Result Comment Performing Site Urine Color June 03, 2024 11:43am Yellow Yellow [facility] [id number] [address] [address] Urine Appearance June 03, 2024 11:43am Clear Clear [facility] [id number] [facility] [address] [address] Urine pH June 03, 2024 11:43am 6.0 5.0-9.0 [facility] [id number] [address] [place] [address] Urine Specific [place] June 03, 2024 11:43am 1.024 1.001-1.035 [facility] [id number] [facility] [address] [address] Urine Protein June 03, 2024 11:43am Negative mg/dL Negative [facility] [id number] [facility] [address] [address] Urine Glucose (UA) June 03, 2024 11:43am Negative mg/dL Negative [facility] [id number] [address] [place] [address] Urine Ketones June 03, 2024 11:43am Negative mg/dL Negative [facility] [id number] [facility] [address] [address] Urine Blood (Manual) June 03, 2024 11:43am Negative Negative [facility] [id number] [facility] [address] [address] Urine Nitrate June 03, 2024 11:43am Negative Negative [facility] [id number] [address] [place] [address] Urine Bilirubin June 03, 2024 11:43am Negative Negative [facility] [id number] [facility] [address] [address] Urine Urobilinogen June 03, 2024 11:43am 0.2 mg/dL <2.0 [facility] [id number] [facility] [address] [address] Urine Leukocyte Esterase June 03, 2024 11:43am Negative EVERETTE/UL Negative [facility] [id number] [facility] [address] [address] Vital Signs Vital Reading Result Reference Range Collection Date/Time Height 67 [in_i] June 03 1:07pm Weight 80.00 kg June 03 1:07pm Heart Rate 85 /min 60-100 October 31st, 2 024 12:30pm BP Systolic 104 mm[Hg] 100-140 June 03 2 024 12:30pm BP Diastolic 57 mm[Hg] 60-90 June 03 2 024 12:30pm BMI (Body Mass Index) 27.6 kg/m2 Octobe r 2023 1:07pm Advance Directives Advance Directive Response Recorded Date/ Time Current Advance Directive No Octobe r 2023 1:07pm Insurance Providers Guarantor Sara Kimble Address [address] [facility] [address] Contact Info. Home Phone: Payer Policy Id Coverage Id Subscriber's Name Subscriber Id Effective Date Expiration Date [employer] Other [id number] Sara Kimble [id number] Hiram BC [id number] Sara Kimble [id number] 2018 Cigna [id number] Sara Kimble [id number] [facility] [id number] Dale Kimble [id number] Self Pay Self N/A Encounters Encounter Location(s) Arrival/Admit Date Discharge/Depart Date Provider(s) Discharged Inpatient [facility] June 03, 2024 11:02am June 03, 2024 1:24pm Ricardo Duarte MD Plan of Treatment Future Tests Future scheduled test information is unavailable Pending Tests Test Name Ordered Date Scheduled Date Urine Culture June 03, 2024 11:43am Future Visits Future appointment information is unavailable Referrals to Other Providers Reason for Referral Referral Start Date Provider Provider Contact Information Provider Address Ricardo Duarte MD Email: [email or web address] Phone: [phone] [facility] [address] [place] [address] Future Procedures Procedure Name Ordered Date Scheduled Date Urine Culture June 03, 2024 11:29am Octob er 2023 11:43am Discharge Order June 03, 2024 12:54pm Octob er 2023 12:38pm Placement to Observation June 03, 2024 11:2 9am June 03, 2024 11:02am Future Medications Future medication information is unavailable Patient Instructions Patient instructions are unavailable Hospital Discharge Instructions Additional Instructions OB ANTEPARTUM DISCHARGE INSTRUCTIONS This information is given to help you properly care for yourself at home after your discharge from the hospital. Follow these instructions until your doctor tells you otherwise. DIET: Eat Three Well Balanced Meals per Day or Small Frequent Feedings Drink at Least Eight 8-Ounce Glasses of Caffeine-Free Beverages Daily ACTIVITY: Increase Periods of Rest No housework, including grocery shopping. No going for walks. If family is able to help with childcare, allow them to assist. Pelvic Rest- No [place] for a week. Additional Activity Instructions: RETURN TO LABOR AND DELIVERY IF YOU HAVE: Any Change In Baby's Normal Movement Pattern Any Leakage of Fluid More than 6 Contractions in an Hour Vaginal Bleeding Warning Signs of Pre-term Labor as per Handout Additional Reasons to Return to Labor and Delivery: Contractions may feel like abdominal pain, tightening, cramping, pressure, back ache, or thigh ache. FOLLOW-UP CARE: Keep Next Scheduled Appointment To see in/on Valuables released to patient or family? No Medications from home returned to patient? No I Have Received Information Regarding Effective Home Pain Management I Acknowledge Receipt of and Understand the Above Instructions IF YOU HAVE ANY QUESTIONS REGARDING THESE INSTRUCTIONS, PLEASE CALL [phone]. IF PROBLEMS ARISE, CALL YOUR PROVIDER. IF EMERGENCY CARE IS NEEDED, [facility] EMERGENCY ROOM IS AVAILABLE 24 HOURS A DAY.
--- OUTSIDE RECORDS SUMMARY | 2024-08-16 03:18 | XMS_ITS | Encounter Summary ---
Author Organization [facility] Address [address] [place] [address]. [place], [place] [address] [place] [address] Care Team Providers Care Ordnance Handler Name Role Phone Sahil Flores MD Primary Care Provider Encounter Details Date Type Department Care Team (Latest Contact Info) Description 05/15/2022 11:35 AM CDT - 05/15/2022 11:59 PM CDT Hospital [facility] [address] [place], [place] [id number] [facility] [address] [place] [address] Discharge Disposition: Home or Self Care (Routine [...] AM DYLANT Inez Kim RN Active documented as of [...] Procedure Name Priority Date/Time Associated Diagnosis Comments HCG QUANT (SERUM)-CHORIONIC GONADOTROPIN STAT 05/15/2022 11:54 AM CDT Hemorrhage in uterus THYROID STIM HORMONE TSH STAT 05/15/2022 11:54 AM CDT Hemorrhage in uterus documented in this encounter Results * THYROID STIM HORMONE, TSH (05/15/2022 11:54 AM CDT) TSH 1.992 0.358 - 3.74 uIU/ML 05/15/2022 12:42 PM CDT [facility] Comment: HIGH DOSES OF BIOTIN MAY INTERFERE WITH THIS TEST RESULT. CORRELATION TO CLINICAL HISTORY AND PRESENTATION RECOMMENDED. 05/15/2022 11:5 4 AM CDT Cari Martinez CNM LABORATORY Final Result Performing Organization Address [facility] Co de Phone Number [facility] [address] [place] [address], * HCG QUANT (SERUM)-CHORIONIC GONADOTROPIN (05/15/2022 11:54 AM CDT) HCG QUANTITATIVE <1 MIU/ML 05/15/20 12:42 PM CDT [facility] Comment: WEEKS OF ? [...] 100,000 05/15/2022 11:5 4 AM CDT Cari Martinez CNM LABORATORY Final Result Performing Organization Address [facility] de Phone Number [facility] [address] [place] [address], [place] [phone] documented in this encounter Visit Diagnoses Diagnosis Hemorrhage in uterus Hematometra documented in this encounter Care Teams Ordnance Handler Relationship Specialty Start Date End Date Sahil Flores MD [address] [place] [id number] PCP - General FAMILY MEDICINE SPORTS MEDICINE 03/06/21 documented as of this encounter
--- OUTSIDE RECORDS SUMMARY | 2024-08-16 03:18 | XMS_ITS | Encounter Summary ---
Author Organization [facility] Address [address] [place] [address]. [place], [place] [address] [place] [address] Care Team Providers Care In Home Caregiver Name Role Phone Sahil Flores MD Primary Care Provider [phone] Encounter Details Date Type Department Care Team (Latest Contact Info) Description 04/28/2023 10:25 AM CDT - 04/28/2023 11:59 PM CDT Hospital Encounter [facility] [address] [place], [place] [id number] Neida Epps MD [address] [place], [place] [id number] Discharge Disposition: Home or Self Care (Routine [...] Diagnosis Comments HCG QUANT (SERUM)-CHORIONIC GONADOTROPIN STAT 04/28/2023 10:35 AM CDT Threatened , antepartum (HHS/HCC) documented in this encounter Results * HCG QUANT (SERUM)-CHORIONIC GONADOTROPIN (04/28/2023 10:35 AM CDT) [facility] HCG QUANTITATIVE 2 MIU/ML 04/28/20 12:03 PM CDT [facility] Comment: WEEKS OF ? REFERENCE [...] us Neida Epps MD LABORATORY Final Result Performing Organization Address City/State/[facility] Co de Phone Number [facility] [address] [place] [address], documented in this encounter Visit Diagnoses Diagnosis Threatened , antepartum ([facility]/HCC) Threatened , antepartum documented in this encounter Care Teams In Home Caregiver Relationship Specialty Start Date End Date Sahil Flores MD [facility] [place] [address] PCP - General FAMILY MEDICINE SPORTS MEDICINE 03/06/21 documented as of this encounter
--- OUTSIDE RECORDS SUMMARY | 2024-08-16 03:18 | XMS_ITS | Encounter Summary ---
Author Organization [facility] Address [address] [place] [address]. [place], [place] [address] [place] [address] Care Team Providers Care Hip Hop Artist Name Role Phone Sahil Flores MD Primary Care Provider [phone] Encounter Details Date Type Department Care Team (Latest Contact Info) Description 05/23/2021 12:56 PM CDT - 05/23/2021 11:59 PM CDT Hospital Encounter [facility] [address] [place], [place] [phone] Neida Epps MD [address] [place], [place] [phone] Discharge Disposition: Home or Self Care (Routine [...] PM CDT documented as of this encounter Medications at Time of Discharge buPROPion XL 300 MG 24 hr tablet Take 300 mg by mouth daily. vitamin 27-1 MG tablet Take 1 tablet by mouth daily. documented as of this encounter Plan of Treatment Not on file documented as of this encounter Procedures Procedure Name Priority Date/Time Associated Diagnosis Comments DRUG SCREEN RAPID WITH REFLEX Routine 05/23/2021 1:06 PM CDT Pre-operative laboratory examination Multiple gestation with malpresentation of one fetus or more, delivered (HHS/HCC) Intrauterine growth restriction affecting care of mother, antepartum, third trimester, fetus 1 (HHS/HCC) TYPE & SCREEN Routine 05/23/2021 1:06 PM CDT Pre-operative laboratory examination Multiple gestation with malpresentation of one fetus or more, delivered (HHS/HCC) Intrauterine growth restriction affecting care of mother, antepartum, third trimester, fetus 1 (HHS/HCC) HC URINALYSIS AUTO W/O MICRO Routine 05/23/2021 1:06 PM CDT Pre-operative laboratory examination Multiple gestation with malpresentation of one fetus or more, delivered (HHS/HCC) Intrauterine growth restriction affecting care of mother, antepartum, third trimester, fetus 1 (HHS/HCC) CBC W/DIFF AUTOMATED Routine 05/23/2021 1:06 PM CDT Pre-operative laboratory examination Multiple gestation with malpresentation of one fetus or more, delivered (HHS/HCC) Intrauterine growth restriction affecting care of mother, antepartum, third trimester, fetus 1 (HHS/HCC) URINE BACTERIA CULTURE Routine 05/23/2021 1:05 PM CDT Pre-operative laboratory examination Multiple gestation with malpresentation of one fetus or more, delivered (HHS/HCC) Intrauterine growth restriction affecting care of mother, antepartum, third trimester, fetus 1 (HHS/HCC) documented in this encounter Results * DRUG SCREEN RAPID WITH REFLEX (05/23/2021 1:06 PM CDT) AMPHETAMINE SCREEN (U) NEGATIVE NEGATIVE 05/23/2021 3:01 PM CDT [facility] BARBITURATES SCREEN (U) NEGATIVE NEGATIVE 05/23/2021 3:01 PM CDT [facility] BENZODIAZEPINES SCREEN (U) NEGATIVE NEGATIVE 05/23/2021 3:01 PM CDT [facility] BUPRENORPHINE SCREEN (U) NEGATIVE NEGATIVE 05/23/2021 3:01 PM CDT [facility] COCAINE METABOLITES (U) NEGATIVE NEGATIVE 05/23/2021 3:01 PM CDT [facility] METHAMPHETAMINE (U) NEGATIVE NEGATIVE 05/23 3:01 PM CDT [facility] METHADONE (U) NEGATIVE NEGATIVE 05/23/2021 3:01 PM CDT [facility] OPIATE SCREEN (U) NEGATIVE NEGATIVE 021 3:01 PM CDT [facility] OXYCODONE SCREEN (U) NEGATIVE NEGATIVE 05/23/2021 3:01 PM CDT [facility] PHENCYCLIDINE PCP (U) NEGATIVE NEGATIVE 05/23/2021 3:01 PM CDT [facility] PROPOXYPHENE SCREEN (U) NEGATIVE NEGATIVE 05/23/2021 3:01 PM CDT [facility] CANNABINOIDS SCREEN (U) NEGATIVE NEGATIVE 05/23/2021 3:01 PM CDT [facility] TRICYCLIC ANTIDEPRESSANT SCREEN (U) NEGATIVE NEGATIVE 05/23/2021 3:01 PM CDT [facility] Comment: NOTE: RESULTS OF THIS DRUG [...] URINE ORDERABLES Final Result Performing Organization Address [facility] de Phone Number [facility] [address] [place] [address], * TYPE & SCREEN (05/23/2021 1:06 PM CDT) ABO/RH O NEGATIVE 05/23/2021 2:17 PM CDT [facility] ANTIBODY SCREEN POSITIVE 05/23/2021 2:36 PM CDT [facility] SAMPLE EXPIRATION 05/26/2021,2359 05/23/2021 2:17 PM CDT [facility] ANTIBODY ID NO ALLOANTIBODIES DETECTED 05/23/2021 3:40 PM CDT [facility] COMMENT 03/12/2021 05/23/2021 3:40 PM CDT [facility] 05/23/2021 1:06 PM CDT Neida Epps MD BLOOD BANK TEST ORDERABLES Fin al Result Performing Organization Address [facility] Co de Phone Number [facility] [address] [place] [address], [place] [phone] * (ABNORMAL) URINALYSIS (05/23/2021 1:06 PM CDT) COLOR (U) YELLOW 05/23/2021 3:06 PM CDT [facility] TRANSPARENCY CLEAR 05/23/2021 3:06 PM T [facility] SPECIFIC GRAVITY (U) 1.020 1.002 - 1.030 05/23/2021 3:06 PM CDT [facility] U PH 6.0 4.5 - 8.0 05/23/2021 3:06 PM T [facility] LEUKOCYTES (U) NEGATIVE NEGATIVE 05/23/2021 3:06 PM T [facility] NITRITES NEGATIVE NEGATIVE 05/23/2021 3:06 PM T [facility] PROTEIN (U) 1+(A) NEGATIVE 05/23/2021 3:06 PM T [facility] URINE GLUCOSE NEGATIVE NEGATIVE 05/23/2021 3:06 PM T [facility] KETONES MG/DL (U) NEGATIVE NEGATIVE 05/23/2021 3:06 PM T [facility] UROBILINOGEN NORMAL NORMAL EU/DL 05/23/2021 3:06 PM T [facility] BILIRUBIN (U) NEGATIVE NEGATIVE 05/23/2021 3:06 PM T [facility] BLOOD (U) 1+(A) NEGATIVE 05/23/2021 3:06 PM T [facility] WBC/HPF 0-5 /HPF 05/23/2021 3:06 PM T [facility] RBC/HPF 0-2 /HPF 05/23/2021 3:06 PM T [facility] EPI/HPF 5-10 /HPF 05/23/2021 3:06 PM T [facility] BACTERIA (U) 3+ /HPF 05/23/2021 3:06 PM CDT [facility] MUCUS 4+ 05/23/2021 3:06 PM CDT [facility] AMORPHOUS SEDIMENT TRACE 05/23/2021 3:06 PM CDT [facility] URINE SPECIMEN OBTAINED BY CLEAN CATCH PROCEDURE / Unknown 05/23/2021 1:06 PM CDT us Neida Epps MD URINE ORDERABLES Final Result [facility] [address] [place] [address], [place] [phone] * (ABNORMAL) CBC W/DIFF AUTOMATED (05/23/2021 1:06 PM CDT) WBC 12.1(H) 4.8 - 10.8 x10'3/uL 05/23/2021 1:29 PM CDT [facility] RBC 4.14 4.10 - 5.10 x10'6/uL 05/23/2021 1:29 PM CDT [facility] HGB 13.4 12.0 - 16.0 G/DL 05/23/2021 1:29 PM CDT [facility] HCT 40.2 36 - 46 % 05/23/2021 1:29 PM CDT [facility] MCV 97.1 80 - 100 FL 05/23/2021 1:29 PM CDT [facility] MCH 32.4 26.0 - 34.0 PG 05/23/2021 1:29 PM CDT [facility] MCHC 33.3 31.0 - 37.0 G/DL 05/23/2021 1:29 PM CDT [facility] RDW 13.9 11.5 - 14.5 % 05/23/2021 1:29 PM CDT [facility] PLT 249 150 - 350 x10'3/uL 05/23/2021 1:29 PM CDT [facility] MPV 9.6 7.0 - 10.4 FL 05/23/2021 1:29 PM CDT [facility] CBC COMMENT AUTOMATED RBC MORPHOLOGY AND PLATELET EVALUATION NORMAL 05/23/2021 1:29 PM CDT [facility] NEUTROPHILS % 80.8(H) 50 - 70 % 05/23/2021 1:29 PM CDT [facility] LYMPHOCYTES % 11.4(L) 18 - 42 % 05/23/2021 1:29 PM CDT [facility] MONOCYTES % 6.1 2.0 - 11.0 % 05/23/2021 1:29 PM CDT [facility] EOSINOPHILS 0.7(L) 1.0 - 3.0 % 05/23/2021 1:29 PM CDT [facility] BASOPHILS 0.3 0.0 - 1.0 % 05/23/2021 1:29 PM CDT [facility] IMMATURE GRANS % 0.7(H) 0.00 - 0.43 % 05/23/2021 1:29 PM CDT [facility] ABS. NEUTROPHILS TOTAL 9.86(H) 1.69 - 7.81 x10'3/uL 05/23/2021 1:29 PM CDT [facility] ABS. LYMPHOCYTES 1.38 0.21 - 5.42 x10'3/uL 05/23/2021 1:29 PM CDT [facility] ABS. MONOCYTES 0.74 0.04 - 1.37 x10'3/uL 05/23/2021 1:29 PM CDT [facility] ABS. EOSINOPHILS 0.08 0.00 - 0.68 x10'3/uL 05/23/2021 1:29 PM CDT [facility] ABS. BASOPHILS 0.04 0.00 - 0.08 x10'3/uL 05/23/2021 1:29 PM CDT [facility] ABS. IMMATURE GRANULOCYTES 0.09(H) 0.00 - 0.06 x10'3/uL 05/23/2021 1:29 PM CDT [facility] 05/23/2021 1:06 PM CDT us Neida Epps MD LABORATORY Final Result [facility] [address] [place] [address], [place] [phone] * CULTURE URINE (05/23/2021 1:05 PM CDT) SPEC DESCRIPTION URINE CLEAN CATCH 05/23/2021 1:02 PM CDT [facility] SPECIAL REQUESTS NO SPECIAL REQUEST 05/23/2021 1:02 PM CDT [facility] CULTURE RESULT NO GROWTH 2 DAYS 05/25/2021 8:30 AM CDT [facility] URINE SPECIMEN OBTAINED BY CLEAN CATCH PROCEDURE / Unknown 05/23/2021 1:05 PM CDT 05/23/2021 1:06 PM CDT us Neida Epps MD MICROBIOLOGY - GENERAL ORDERAB LES Final Result [facility] [address] [place] [address], [place] [phone] [facility] [address] [place] [address], [place] [phone] documented in this encounter Visit Diagnoses Diagnosis Pre-operative laboratory examination Pre-procedural laboratory examination Multiple gestation with malpresentation of one fetus or more, delivered (HHS/HCC) Multiple gestation with malpresentation of one fetus or more, delivered Intrauterine growth restriction affecting care of mother, antepartum, third trimester, fetus 1 (HHS/HCC) documented in this encounter Care Teams Hip Hop Artist Relationship Specialty Start Date End Date Sahil Flores MD [address] [place] [address] PCP - General FAMILY MEDICINE SPORTS MEDICINE 03/06/21 documented as of this encounter
--- OUTSIDE RECORDS SUMMARY | 2024-08-16 03:18 | XMS_ITS | Encounter Summary ---
Author Organization [facility] Address [address] [place] [address]. [place], [place] [address] [place] [address] Care Team Providers Care Manager Ecommerce Name Role Phone Sahil Flores MD Primary Care Provider [phone] Encounter Details Date Type Department Care Team (Late st Contact Info) Description 03/01/2022 Orders Only [facility] [address] [place] [address] Lupillo Brush, [address] [address] Social History Tobacco Use Types Packs/Day Years [...] 10:44 AM Inez Patrick RN Active * Do you have difficulty [...] on filedocumented in this encounter Care Teams Manager Ecommerce Relationship Specialty Start Date End Date Sahil Flores MD [address] [place] [address] PCP - General FAMILY MEDICINE SPORTS MEDICINE 03/06/21 documented as of this encounter
--- OUTSIDE RECORDS SUMMARY | 2024-08-16 03:18 | XMS_ITS | Encounter Summary ---
Author Organization [facility] Address [address] [place] [address] [place] [address] Care Team Providers Care Traffic Worker Name Role Phone Unavailable Primary Care Provider Unavailabl e Reason for Visit * Reason Comments Ultrasound FAD NST Encounter Details Date Type Department Care Team (Latest Contact Info) Description 05/21/2021 7:30 AM CDT - 05/21/2021 11:59 PM CDT Hospital Encounter [facility] Maternal & Care [address] [place] [address] Dante Bardales MD [address] [place] [address] Discharge Disposition: Home or Self Care Social [...] Progress Notes * Marija Vasquez RN - 05/21/2021 8:50 AM CDT Pt here today for ultrasound and NST. She reports feeling good movement. NST reactive, reviewed by Dr. Bardales. Denies cramping/contractions. Denies leakage of fluid/bleeding. Denies headaches, visual changes, edema, and epigastric pain. Pt to follow up on for NST. Pt having her on Friday. She denies further questions or concerns for her care today. documented in this encounter Plan of Treatment Not on file documented as of this encounter Procedures Procedure Name Priority Date/Time Associated Diagnosis Comments BIOPHYSICAL PROFILE W NST Routine 05/21/2021 7:45 AM CDT Rh negative status during in second trimester (HCC) documented in this encounter Results * BIOPHYSICAL PROFILE W NST (05/21/2021 7:45 AM CDT) Anatomical Region Laterality Modality Other 05/21/2021 7:45 AM CDT Narrative 05/21/2021 10:22 AM CDT ? - [facility] ?PHONE: ??FAX: ? Pat. Name: ?SARA KIMBLE. No: ?[id number] Study Date: ?? 05/21/2021 ??7:45am , Age: ? 1990, 30 Pregnancies: ?? 2, Para 0 Height: ? 67 in Weight: ? 140 lb LMP: ?09/07/2020 GA by LMP: ?36w4d GA by Base: ?? 36w4d ?? JOSE GA by US: ? 34w6d ?? JOSE GA Selected: ??36w4d (From [facility]) JOSE D: ?2021 Referring MD: Hali Aguayo MD Assistant Professor Of Criminal Justice: ??Pamela Caicedo RDMS CPT4: ? 17539,03887,[id number],37021 BMI: ?21.92 Hist/Ind: ? Suspected FGR ?Vyvanse use in early ?Rh negative MEASUREMENTS & AGE ? GROWTH EVALUATION Measurement ??GA ? Range ? Srce %for GA Ratios ----- ---- ------- BPD ??8.2 cm 32w6d ([id number]) Hadl BPD <01 FL/BPD 0.85 (0.71 - 0.87) HC ??32.3 cm 36w4d (91u2b-17b4f) Hadl HC ??22% FL/AC ??0.23 (0.20 - 0.24) AC ??29.7 cm 33w5d ([id number]-91z9j) Hadl AC ??2% HC/AC ??1.09 (0.92 - 1.11) FL ?? 7.0 cm 35w5d (49r5j-97k0f) Hadl FL ??25% CI ? 0.68 (0.70 - 0.86* HL ?? 5.9 cm 34w1d (04k0r-65e2l) Darrell HL ??8% GA for sonogram 34w6d ([id number]) ?? Weight Estimate: based on (BPD,HC,AC,FL) Hadlock [...] <Electronic Signature> ??05/21/2021 10:22am Oziel Mayers MD [facility] ORDERABLES documented in this encounter Visit Diagnoses Diagnosis Second (HCC) state, incidental Small for gestational age (SGA) (HCC) Tjtju-cah-gtunc without mention of malnutrition, unspecified (weight) Rh negative status during in second trimester (HCC) documented in this encounter
--- OUTSIDE RECORDS SUMMARY | 2024-08-16 03:18 | XMS_ITS | Encounter Summary ---
Author Organization [facility] Address [address] [place], [place] [address] [address] Care Team Providers Care Toll Testboard Worker Name Role Phone Unavailable Primary Care Provider Unavailabl e Reason for Visit * Reason Comments Ultrasound FAD NST Encounter Details Date Type Department Care Team (Latest Contact Info) Description 04/30/2021 7:30 AM CDT - 04/30/2021 11:59 PM CDT Hospital Encounter [facility] Maternal & Care [address] [place] [address] Elizabeth Thomas MD [address] [address] Discharge Disposition: Home or Self Care Social History Tobacco Use Types Packs/Day Years Used Date Smoking Tobacco: Never Assessed Comments Yes Sex and Gender Information Value Date Recorded Sex Assigned at Not on file Gender Identity Not on file Sexual Orientation Not on file documented as of this encounter Last Filed Vital Signs Vital Sign Reading Time Taken Comments Blood Pressure 117/57 04/30/2021 8:28 AM CDT Pulse 81 04/30/2021 8:28 AM CDT Temperature - - Respiratory Rate 18 04/30/2021 8:28 AM CDT Oxygen Saturation - - Inhaled Oxygen Concentration - - Weight - - Height - - Body Mass Index - - documented in this encounter Progress Notes * Angelina Benral RN - 04/30/2021 8:42 AM CDT PT. SCREENED FOR COVID 19 BEFORE ENTERING OFFICE, SEE SEPARATE NOTE. Pt here for NST and BPP visit. Pt accompanied by her sig other. She reports feeling movement.She states she has an appt to see her primary OB today. Denies contractions or cramping. Pt denies loss of fluid, vaginal bleeding, epigastric pain or unrelieved headaches. No edema noted today, but pt states her ankle and feet are swelling during the day. She reports some swelling in her hands, but is still able to wear her rings. Dr. Thomas to review NST, via remote, reactive. Name: Sara Kimble Date of : 1990 Today's Date: 04/30/2021 33w4d NST RESULTS (ROY) OBJECTIVE FINDINGS , Pulse: 81, Resp: 18, BP: 117/57 NST Indication(s): ( growth restriction) Uterine Irritability: Yes Contractions: Irregular Frequency: x 1 Duration (sec) Range: 50-60 Perceived Intensity: Mild OBJECTIVE FINDINGS Movement: Present Monitoring Mode: External Baseline: 150 BPM Variability: Moderate Decelerations: None Accelerations: Yes OTHER INFORMATION Comments: BPP 03/11 Angelina Bernal RN documented in this encounter Plan of Treatment Not on file documented as of this encounter Procedures Procedure Name Priority Date/Time Associated Diagnosis Comments BIOPHYSICAL PROFILE W NST Routine 04/30/2021 7:49 AM CDT Rh negative status during in second trimester (HCC) documented in this encounter Results * BIOPHYSICAL PROFILE W NST (04/30/2021 7:49 AM CDT) Anatomical Region Laterality Modality Other 04/30/2021 7:49 AM CDT Narrative 04/30/2021 8:33 AM CDT ? - [facility] ?PHONE: ??FAX: ? Pat. Name: ?SARA KIMBLE Pat. No: ?[id number] Study Date: ?? 04/30/2021 ??7:49am , Age: ? 1990, 30 Pregnancies: ?? 2, Para 0 Height: ? 67 in Weight: ? 140 lb LMP: ?09/07/2020 GA by LMP: ?33w4d GA by Base: ?? 33w4d ?? JOSE GA Selected: ??33w4d (From [facility]) JOSE D: ?2021 Referring MD: Hali Aguayo MD Fur Clipper: ??Leona Valentino RDMS CPT4: ? 99325,92017 BMI: ?21.92 Hist/Ind: ? Suspected FGR ?Vyvanse use in early ?Rh negative Heart Rate: 139 bpm Amniotic Fluid Index: 08.5cm (08.2-24.7) Q1: 3.1cm ??Q2: 2.1cm ??Q3: 1.8cm ??Q4: 1.4cm ?? Biophysical Profile: 10/10 Breathin ?? Tone: 2 ?? NST: 2 Movement: ??2 ?? AFV: ??2 EVAL, PLACENTA Presentation: demetrius breech Umbilical Cord: 3 Vessels Placenta: posterior Heart Rate: 139 bpm Amniotic Fluid Volume: normal DOPPLER Umbilical - Mid Cord S/D ??2.49(1.75 - 3.72) ? PI ?? 0.91 (0.63 - 1.21) ? CLINICAL SUMMARY Study Number: 7 ?? No abnormalities were detected during today's limited review of the anatomy. The FHR baseline was 150 bpm during today's reactive NST. The FHR variability was moderate and no decelerations >10 bpm below the baseline lasting >30 seconds were detected. IMPRESSION: ?? 1) Roy gestation, 33w4d 2) The amniotic fluid volume is within normal limits 3) Umbilical Doppler waveforms reveal no evidence of increased arterial resistance 4) Reassuring biophysical profile RECOMMEND: ?? Close maternal movement monitoring while awaiting a repeat growth assessment in 1 week, with additional testing (Doppler studies, BPP, etc.) at that time if / as clinically indicated, based on that assessment Thank you for allowing us the opportunity to care for your patient. Elizabeth Thomas MD <Electronic Signature> ??04/30/2021 08:25am Oziel Mayers MD [facility] ORDERABLES documented in this encounter Visit Diagnoses Diagnosis Second (HCC) state, incidental Small for gestational age (SGA) (HCC) Tpvga-euy-wdizf without mention of malnutrition, unspecified (weight) Rh negative status during in second trimester (HCC) Encounter for screening for growth retardation (HCC) 33 weeks gestation of (HCC) state, incidental documented in this encounter
--- OUTSIDE RECORDS SUMMARY | 2024-08-16 03:18 | XMS_ITS | Encounter Summary ---
Author Organization [facility] Address [address] [place] [address]. [place], [place] [address] [place] [address] Care Team Providers Care Cement Based Materials Pump Tender Name Role Phone Sahil Flores MD Primary Care Provider [phone] Reason for Visit * Auth/Cert Specialty Diagnoses / Procedures Referred By Contac t Referred To Contact Diagnoses BREECH PRESENTATION, IUGR Procedures NONE PRIMARY SECTION Referral ID Status Reason Start Date Expiration Date Visits Re quested Visits Authorized [id number] 1 1 Encounter Details Date Type Department Care Team (Late st Contact Info) Description 05/25/2021 12:01 PM CDT Anesthesia Event [facility] Labor & Delivery [address] [place] [address] Jose Angel Grace CRNA [address] [place] [address] Anesthesia Record Procedure Summary Procedure Name Responsible Anesthesiologist Anesthesia Start Time Anesthesia Stop Time PRIMARY SECTION (Abdomen) Jose Angel Grace CRNA 05/25/21 1201 05/25/21 1301 Events Date Time Event Comment 05/25/2021 1157 1157 AN Anesthesia Prepped 1201 An Start Patient ID and consent checked and patient reassessed. 1201 An Start Data 1201 AN Immediate Reassess The pa tient was reevaluated immediately before sedation or regional anesthesia. 1205 Epidural Start 1215 An Block 1216 An Epidural Placement Comple te 1221 Nasal Cannula Applied 1223 Anesthesia Ready 1234 Uterine Incision 1234 Baby Delivered 1235 AN Placenta 1253 Nasal Cannula Removed 1257 an stop data 1301 Post Anesthetic Care Handoff I completed my handoff to the receiving nurse during which we: 1. Identified the patient 2. Identified the responsible provider 3. Reviewed the pertinent medical history 4. Discussed the surgical course 5. Reviewed intra-op anesthesia management and issues during anesthesia 6. Set expectations for post-procedure period 7. Allowed opportunity for questions and acknowledgement of understanding. 1301 An Stop Meds Name Total oxytocin (PITOCIN) injection 20 Units ondansetron (ZOFRAN) 4 mg/2 mL injection 4 mg BUpivacaine 0.75%-dextrose 8.25% intrath ecal injection 1.8 mL phenylephrine (JEFFERY-SYNEPHRINE) 1 mg/10 m L IV syringe 200 mcg lidocaine (PF) (XYLOCAINE) 1% injection 30 mg lidocaine 1.5%-EPINEPHrine 1:200,000 inj ection 3 mL ketorolac (TORADOL) 30 mg/mL injection 3 0 mg lactated ringers infusion 500 mL * Agents Name O2 N2O Air Ancillary O2 * Blood No blood administrations on file. Lines, Drains, and Airways Type Details Placement Removal Peripheral IV Placement Date: 05/05 09/24; Placement Time: 1040; Placed Outside of This Facility?: No; Size: 20 G; Orientation: Right; Location: Hand; Site Prep: Chlorhexidine; Local Anesthetic: None; Inserted By: René Casiano; Insertion attempts: 1; Ultrasound-guided Placement?: No; Patient Tolerance: Tolerated well; Removal Date: 05/26/21; Removal Time: 1900; Removal Reason: Therapy Completed 05/25/21 1040 by Inez Kim RN 05/26/21 1900 by Melba Damon RN Epidural Placement Date: 05/05 09/24; Placement Time: 1216; Inserted By: Bradford Grace; Placement Location: Lumbar; MRI Compatible: MRI SAFE; Removal Date: 05/26/21; Removal Time: 1200 05/25/21 1216 by Jose Angel Grace CRNA 05/26/21 1200 by Francesca Cox RN Rush Catheter 05/25/21; 1220; No; Urologic Surgical intervention - Bladder, Prostate, OPHTHALMIC PATHOLOGIST procedures; 1; Hand hygiene performed, Site cleansed with sterile antiseptic, Sterile gloves, drape and lubricant used, Catheter inserted using aseptic technique, Rush care post catheter insertion, Anchoring device applied, Drainage bag secured below level of bladder; Stat lock; 16 Fr.; Per Protocol 05/25/21 1220 by Inez Kim RN 05/26/21 1200 by Francesca Cox RN Surgical/Incision 05/25/21; 1303; Surg ical Wound; Abdomen; Island Dressing, sutures and steristrips; 05/27/21; 1728 05/25/21 1303 by Inez Kim RN 05/27/21 1728 by Automatic Discharge Provider documented in this encounter Social History Tobacco [...] AM CDT Inez Kim RN A ctive * Because of a physical, mental, or emotional condition, do you have serious difficulty concentrating, remembering, or making decisions? Answer Entry Date Author Status No 05/25/2021 10:44 AM CDT Inez Kim RN Active documented in this encounter OR Notes * Anesthesia Postprocedure Evaluation - Shala Claire MD - 05/25/2021 2:32 PM CDT Anesthesia Post-op Note Sara Kimble Procedure(s): PRIMARY SECTION (N/A Abdomen) Anesthesia type: spinal Vitals: 05/25/21 1421 BP: 123/72 Vitals: 05/25/21 1421 Pulse: 91 Vitals: 05/25/21 1019 Resp: 18 Vitals: 05/25/21 1019 Temp: 36.8 ??C Vitals: 05/25/21 1019 SpO2: 97% Patient Location: Labor & Delivery Level of Consciousness: awake, alert and oriented Pain Management: adequate analgesia Airway Patency: patent Respiratory Status: spontaneous ventilation, unassisted and nonlabored ventilation Cardiovascular Status: hemodynamically stable Post-Op Nausea: none Postoperative Hydration: euvolemic Comments: Patient evaluated prior to discharge from PACU. No complications documented. * Anesthesia Procedure Notes - Jose Angel Grace CRNA - 05/25/2021 12:25 PM CDT Associated Order(s): CSE CSE Block: Date/Time: 05/25/2021 12:15 PM Patient location during procedure: OB Reason for block: procedure for pain Preanesthetic Checklist: Completed: patient identified, site marked, surgical consent, pre-op evaluation, timeout performed,IV checked, risks and benefits discussed and monitors and equipment checked Procedure Information: Placement Location: lumbar Patient position: sitting Prep: chlorhexidine Patient monitoring: nuclear monitoring technician, continuous pulse oximetry and non-invasive blood pressure Approach: midline Ultrasound-guided Placement: No Spinal Needle: Needle type: pencil-tip Needle gauge: 27 G Needle length: 10 cm Epidural Needle: Injection technique: DANILO saline Needle type: Tuohy Needle gauge: 18 G Needle length: 3.5 in Needle insertion depth: 6 cm Location: L3-4 Needle attempts: 1 Catheter: MRI Compatible: MRI SAFE Catheter type: multi-orifice Catheter size: 20 G Catheter at skin depth: 12 cm Test dose: negative and lidocaine 1.5% with epinephrine 1-to-200,000 Assessment: Sensory level: T4 * Anesthesia Preprocedure Evaluation - Shala Claire MD - 05/25/2021 10:51 AM CDT Anesthesia ROS/MED History Reviewed: Patient summary , Family history anesthesia, Anesthesia history , Medications , Labs , Unchecked boxes are not applicable Pre-Anesthetic State: alert, awake and responds appropriately no history of anesthetic complications Pulmonary neg pulmonary ROS Cardiovascular Exercise tolerance:good Neuro/Psych (+) depression(-) no substance use GI/Hepatic/Renal neg GI/hepatic/renal ROS (-) GERD Endo/Other neg endo/other ROS GENERAL COMMENTS Lap Allegra - 2011 [place] teeth extraction Left wrist orif SI pain bilateral with Physical Evaluation Airway Mallampati: I TM Distance: >3 FB Neck ROM: normal Dental (braces) Comment: invisalign brackets glued on teeth Upper fron teeth bonded Pulmonary Pulmonary exam normal Cardiovascular Cardiovascular exam normal Other findings: Blood pressure 116/66, pulse 90, resp. rate 18, height 5' 7.75 (1.721 m), weight 77.6 kg (171 lb), SpO2 97 %. 05/23/21 1306 WBC 12.1* RBC 4.14 HGB 13.4 HCT 40.2 PLT 249 Anesthesia Plan ASA 2 Induction Anesthesia type: spinal Discussed potential risks of Combined Spinal-epidural Anesthesia with backup supplementary sedation//general anesthesia, including but not limited to low back tenderness or bruising, post-dural puncture headache, nerve injury, corneal abrasion, visual impairment or visual loss, mouth injury, dentaldamage, sore throat, hoarseness, esophageal injury, awareness under anesthesia, nerve injury due topositioning, aspiration, pneumonia, stroke, cardiac event, adverse drug reactions and . Informed Consent Anesthetic plan and risks discussed with patient of whom consent was obtained. . documented in this encounter Plan of Treatment Not on file documented as of this encounter Procedures Procedure Name Priority Date/Time Associated Diagnosis Comments CSE BLOCK Routine 05/25/2021 12:25 PM CDT documented in this encounter Results * CSE BLOCK (05/25/2021 12:25 PM CDT) Narrative Jose Angel Grace CRNA - 05/25/2021 12:25 PM CDT Jose Angel Grace CRNA ? 05/25/2021 12:26 PM CSE Block: Date/Time: ??05/25/2021 12:15 PM Patient location during procedure: OB Reason for block: procedure for pain Preanesthetic Checklist: Completed: patient identified, site marked, surgical consent, pre-op evaluation, timeout performed, IV checked, risks and benefits discussed and monitors and equipment checked Procedure Information: Placement Location: ??lumbar Patient position: sitting Prep: chlorhexidine Patient monitoring: nuclear monitoring technician, continuous pulse oximetry and non-invasive blood pressure Approach: midline Ultrasound-guided Placement: ??No Spinal Needle: Needle type: pencil-tip Needle gauge: 27 G Needle length: 10 cm Epidural Needle: Injection technique: DANILO saline Needle type: Tuohy Needle gauge: 18 G Needle length: 3.5 in Needle insertion depth: 6 cm Location: L3-4 Needle attempts: ??1 Catheter: MRI Compatible: MRI SAFE Catheter type: multi-orifice Catheter size: 20 G Catheter at skin depth: 12 cm Test dose: negative and lidocaine 1.5% with epinephrine 1-to-200,000 Assessment: Sensory level: T4 Jose Angel Grace CANAL EQUIPMENT MAINTENANCE SUPERVISOR [place] ANESTHESIA Final Resul t documented in this encounter Visit Diagnoses Not on filedocumented in this encounter Administered Medications Inactive Administered Medications - up to 3 most recent administrations Medication Order MAR Action Action Date Dose Rate Site BUpivacaine 0.75% in dextrose 8.25% (intrathecal) (SENSORCAINE) 0.75-8.25 % injection Intrathecal, PRN, Starting on Fri05/25/21 at 1215, Until Fri05/25/21 at 1301, Anesthesia Intra-Op Given 05/25/2021 12:15 PM CDT 1.8 mLs ketorolac (TORADOL) injection Intravenous, PRN, Starting on Fri05/25/21 at 1245, Until Fri05/25/21 at 1301, Anesthesia Intra-Op Given 05/25/2021 12:45 PM CDT 30 mg lactated ringers infusion at 125 mL/hr, Intravenous, Continuous, Starting on Fri05/25/21 at 1100, Until Fri05/25/21 at 1350 New Bag 05/25/2021 12:35 PM CDT New Bag 05/25/2021 11:49 AM CDT 125 mL/hr New Bag 05/25/2021 10:48 AM CDT 125 mL/hr lidocaine (PF) (XYLOCAINE) 1 % injection Infiltration, PRN, Starting on Fri05/25/21 at 1205, Until Fri05/25/21 at 1301, Anesthesia Intra-Op Given 05/25/2021 12:05 PM CDT 30 mg lidocaine-EPINEPHrine 1.5 %-1:[id number] injection Epidural, PRN, Starting on Fri05/25/21 at 1217, Until Fri05/25/21 at 1301, Anesthesia Intra-Op Given 05/25/2021 12:17 PM CDT 3 mLs ondansetron (ZOFRAN) injection Intravenous, PRN, Starting on Fri05/25/21 at 1201, Until Fri05/25/21 at 1301, Anesthesia Intra-Op Given 05/25/2021 12:01 PM CDT 4 mg oxytocin (PITOCIN) injection Intravenous, PRN, Starting on Fri05/25/21 at 1235, Until Fri05/25/21 at 1301, Anesthesia Intra-Op Given 05/25/2021 12:35 PM CDT 20 Units phenylephrine (JEFFERY-SYNEPHRINE) injection Intravenous, PRN, Starting on Fri05/25/21 at 1225, Until Fri05/25/21 at 1301, Anesthesia Intra-Op Given 05/25/2021 12:33 PM CDT 100 mcg Given 05/25/2021 12:25 PM CDT 100 mcg documented in this encounter Care Teams Cement Based Materials Pump Tender Relationship Specialty Start Date End Date Sahil Flores MD [address] [place] [address] PCP - General FAMILY MEDICINE SPORTS MEDICINE 03/06/21 documented as of this encounter
--- OUTSIDE RECORDS SUMMARY | 2024-08-16 03:18 | XMS_ITS | Encounter Summary ---
Author Organization [facility] Address [address] [place] [address] Care Team Providers Care Accountant Controller Name Role Phone Unavailable Primary Care Provider Unavailabl e Reason for Visit * Reason Onset Date Comments Care 04/30/2021 Encounter Details Date Type Department Care Team (Late st Contact Info) Description 04/30/2021 Telephone [facility] Maternal & Care [address] [place] [address] Angelina Bernal RN Care Social History Tobacco Use Types Packs/Day Years Used Date Smoking Tobacco: Never Assessed Comments Yes Sex and Gender Information Value Date Recorded Sex Assigned at Not on file Gender Identity Not on file Sexual Orientation Not on file documented as of this encounter Miscellaneous Notes * Telephone Encounter - Angelina Bernal RN - 04/30/2021 3:02 PM CDT Call received from patient regarding her appt this morning. She is inquiring if the doctor made anydelivery recommendations on her report. Informed pt that the doctor will not make recommendations until closer to her due date or if the growth of the baby does not increase with next measurement. Ptstates understanding. documented in this encounter Plan of Treatment Not on file documented as of this encounter Visit Diagnoses Diagnosis Second (HCC) state, incidental Small for gestational age (SGA) (HCC) [id number]-kbxyl without mention of malnutrition, unspecified (weight) documented in this encounter
--- OUTSIDE RECORDS SUMMARY | 2024-08-16 03:18 | XMS_ITS | Encounter Summary ---
Author Organization [facility] Address [facility] [place], [place] [address] [place] [address] Care Team Providers Care Filenet P8 Developer Name Role Phone Sahil Flores MD Primary Care Provider [phone] Encounter Details Date Type Department Care Team (Late st Contact Info) Description 02/17/2023 Orders Only [facility] Day [facility] [address] [place] [address] Radha Drew RN Social History Tobacco Use Types Packs/Day Years [...] as of this encounter Visit Diagnoses Diagnosis Unspecified screening ([facility] Primary Unspecified screening Antidepressant type abuse, continuous ([facility]) Antidepressant type abuse, continuous Antepartum drug dependence ([facility]) Drug dependence, antepartum documented in this encounter Care Teams Filenet P8 Developer Relationship Specialty Start Date End Date Sahil Flores MD [address] [place] [address] PCP - General FAMILY MEDICINE SPORTS MEDICINE 03/06/21 documented as of this encounter
--- OUTSIDE RECORDS SUMMARY | 2024-08-16 03:18 | XMS_ITS | Referral Summary ---
Author Organization [facility] Address [address] [place] [address] Care Team Providers Care Monotype Operator Name Role Phone Unavailable Primary Care Provider Unavailabl e Source Comments [facility] [facility],non-owned Affiliates and Associated Physician Practices is amultiple site organization consisting of ambulatory clinics and hospital sitesin [place], [place], [place] and [place]. This disclosure is being madepursuant to the Care Everywhere program and may not contain all information available regarding this patient. Last updated 18.[facility] [facility] Active Problems Problem Noted Date Diagnosed Date [...] Mass Index - - Plan of Treatment Not on file
--- OUTSIDE RECORDS SUMMARY | 2024-08-16 03:18 | XMS_ITS | Encounter Summary ---
Author Organization [facility] Address [facility] [place] [address] Care Team Providers Care Fuse Assembler Name Role Phone Unavailable Primary Care Provider Unavailabl e Reason for Visit * Reason Comments Ultrasound Encounter Details Date Type Department Care Team (Latest Contact Info) Description 04/02/2021 7:30 AM CDT - 04/02/2021 11:59 PM CDT Hospital [facility]aternal & Care [address] [place] [address] Ricardo Walden MD Discharge Disposition: Home or [...] Sign Reading Time Taken Comments Blood Pressure 116/69 04/02/2021 8:11 AM CDT Pulse 82 04/02/2021 8:11 AM CDT Temperature - - Respiratory Rate - - Oxygen Saturation - - Inhaled Oxygen Concentration - - Weight - - Height - - Body Mass Index - - documented in this encounter Progress Notes * Marija Vasquez RN - 04/02/2021 8:43 AM CDT Pt here today for ultrasound and added NST for IUGR. She reports feeling good movement. NST reactive. She reports feeling occasional, irregular contractions. Denies leakage of fluid/bleeding. Denies headaches, visual changes, edema, and epigastric pain. She is to follow up weekly for BPP/NST.Will repeat growth in 3 weeks. Pt made appointments at checkout today. Denies further questions or concerns for her care today. documented in this encounter Plan of Treatment Not on file documented as of this encounter Procedures Procedure Name Priority Date/Time Associated Diagnosis Comments SONOGRAM - COMPLETE Routine 04/02/2021 7 :35 AM CDT Rh negative status during in second trimester (HCC) documented in this encounter Results * SONOGRAM - COMPLETE (04/02/2021 7:35 AM CDT) Anatomical Region Laterality Modality Other 04/02/2021 7:35 AM CDT Narrative 04/02/2021 9:35 AM CDT ?[facility] ?PHONE: ??FAX: ? Pat. Name: ?SARA KIMBLE. No: ?[id number] Study Date: ?? 04/02/2021 ??7:35am , Age: ? 1990, 30 Pregnancies: ?? 2, Para 0 Height: ? 67 in Weight: ? 140 lb LMP: ?09/07/2020 GA by LMP: ?29w4d GA by Base: ?? 29w4d ?? JOSE GA by US: ? 28w0d ?? JOSE GA Selected: ??29w4d (LMP) JOSE D: ?2021 Referring MD: Hali Aguayo MD Shipping And Receiving Assistant: ??Leona Valentino RDMS CPT4: ? 38989,[id number] BMI: ?21.92 Hist/Ind: ? SGA on 03/19 ?Vyvanse use in early ?Rh negative MEASUREMENTS & AGE ? GROWTH EVALUATION Measurement ??GA ? Range ? Srce %for GA Ratios ----- ---- ------- BPD ??6.7 cm 26w6d (62z2h-94n1e) Hadl BPD <01 FL/BPD 0.79 (0.71 - 0.87) HC ??27.3 cm 29w5d (75e6m-71c4e) Hadl HC ??20% FL/AC ??0.23 (0.20 - 0.24) AC ??23.0 cm 27w2d (89c2m-32z2e) Hadl AC ??2% HC/AC ??1.19 (0.98 - 1.17* FL ?? 5.3 cm 28w0d (87r8h-58c6h) Hadl FL ??5% CI ? 0.65 (0.70 - 0.86* HL ?? 4.9 cm 28w5d (27e6t-89e2e) Darrell HL ??34% GA for sonogram 28w0d (45s8b-41g9l) ?? Weight Estimate: based on (BPD,HC,AC,FL) Avg [...] your patient. Elizabeth Thomas MD <Electronic Signature> ??04/02/2021 09:34am Oziel Mayers MD [facility] ORDERABLES documented in this encounter Visit Diagnoses Diagnosis Rh negative status during in second trimester (HCC)- Primary Poor growth affecting management of mother in third trimester, single or unspecified fetus (HCC) 29 weeks gestation of (HCC) state, incidental documented in this encounter
--- OUTSIDE RECORDS SUMMARY | 2024-08-16 03:18 | XMS_ITS | Clinical Summary ---
Author Organization [facility] Address [address] [place] [address]. [place], [place] [address] [place] [address] Care Team Providers Care Machine Learning Intern Name Role Phone Sahil Flores MD Primary Care Provider [phone] Allergies No known active allergies Medications buPROPion XL 300 MG 24 hr tablet Take 300 mg by mouth daily. Active vitamin 27-1 MG tablet Take 1 tablet by mouth daily. 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[facility]) 04/2021 Immunizations Name Administration Dates Next Due Tdap (Adacel) 05/26/2021 Social History Tobacco Use Types Packs/Day Years [...] Mass Index 26.19 05/24/2021 2:27 PM CDT Plan of Treatment Health Maintenance Due Date Last Done Comments Cervical Cancer Screening Pa p Smear (Age 30 to 64) Every 3 Years 1990 Annual Physical 1993 Hepatitis B Vaccines (1 of 3 - 19+ 3-dose series) 2009 Cervical Cancer Screening Pa p with HPV Testing (Age 30 to 64) Every 5 Years 2020 Cervical Cancer Screening with HPV 2020 COVID-19 Vaccine ( - 2023-2 5 season) 2024 Influenza Adult (#1) 2024 DTaP, Tdap and Td Vaccines ( 2 - Td or Tdap) 05/26/2031 05/26/2021 Hepatitis C Completed 10/29/2019 HPV Vaccines Aged Out No longer eligi ble based on patient's age to complete this topic Meningococcal Vaccine Aged Out No raman fawad eligible based on patient's age to complete this topic Pneumococcal Vaccine: Pediat rics (0 to 5 Years) and At-Risk Patients (6 to 64 Years) Aged Out No longer eligi ble based on patient's age to complete this topic RSV Immunizations Under 20 Months Aged Out No longer eligible based on patient's age to complete this topic Procedures Procedure Name Priority Date/Time Associated Diagnosis Comments HEPATITIS PANEL,ACUTE Routine 10/29/2019 9:42 AM CDT Stomach ache Diarrhea of presumed infectious origin from Last 3 Months or Most Recently Relevant to Health Maintenance Results * HEPATITIS PANEL,ACUTE (10/29/2019 9:42 AM CDT) HEPATITIS B SURFACE AG NON-REACTI VE NON-REACTI VE 10/29/2019 2:45 PM CDT [facility] HEP B CORE IGM NON-REACTI VE NON-REACTI VE 10/29/2019 2:45 PM CDT [facility] HAV IGM NON-REACTI VE NON-REACTI VE 10/29/2019 2:45 PM CDT [facility] HEPATITIS C AB NON-REACTI VE NON-REACTI VE 10/29/2019 2:45 PM CDT [facility] 10/29/2019 9:42 AM CDT Sahil Flores MD LABORATORY Final Result [facility] [address] [place] [address], from Last 3 Months or Most Recently Relevant to Health Maintenance Insurance retickr OPEN ACCESS [facility] Advance Directives * Full Code (Latest Code Status on File) Date Activated Date Inactivated Comments 05/25/2021 1:46 PM 05/27/2021 5:33 PM * Full Code Date Activated Date Inactivated Comments 05/24/2021 1:28 PM 05/24/2021 3:38 PM * Full Code Date Activated Date Inactivated Comments 05/08/2021 3:27 PM 05/08/2021 7:52 PM Care Teams Machine Learning Intern Relationship Specialty Start Date End Date Sahil Flores MD [address] [place] [address] PCP - General FAMILY MEDICINE SPORTS MEDICINE 03/06/21
--- OUTSIDE RECORDS SUMMARY | 2024-08-16 03:18 | XMS_ITS | Encounter Summary ---
Author Organization [facility] Address [address] [place] [address] [place] [address] Care Team Providers Care Vacuum Worker Name Role Phone Unavailable Primary Care Provider Unavailabl e Encounter Details Date Type Department Care Team (Latest Contact Info) Description 01/30/2021 Travel Social History Tobacco Use Types Packs/Day [...]
--- OUTSIDE RECORDS SUMMARY | 2024-08-16 03:18 | XMS_ITS | Encounter Summary ---
Author Organization [facility] Address [address] [place] [address]. [place], [place] [address] [place] [address] Care Team Providers Care Casting Associate Name Role Phone Sahil Flores MD Primary Care Provider [phone] Encounter Details Date Type Department Care Team (Latest Contact Info) Description 05/09/2023 4:10 PM CDT - 05/09/2023 11:59 PM CDT Hospital Encounter [facility] [address] [place] [address] Neida Epps MD [address] [place] [address] Discharge Disposition: Home or Self Care (Routine [...] Date/Time Associated Diagnosis Comments COMPREHENSIVE METABOLIC PANEL Routine 05/09/2023 4:15 PM CDT LFT elevation documented in this encounter Results * (ABNORMAL) COMPREHENSIVE METABOLIC PANEL (05/09/2023 4:15 PM CDT) [facility] Signature GLUCOSE 121(H) 70 - 99 MG/DL 05/09/2023 4:38 PM CDT [facility] BUN 12 7 - 18 MG/DL 05/09/2023 4:38 PM CDT [facility] CREATININE S/P/B 0.77 0.55 - 1.02 MG/DL 05/09/2023 4:38 PM CDT [facility] SODIUM S/P/B 140 136 - 145 MMOL/L 05/09/2023 4:38 PM CDT [facility] POTASSIUM S/P/B 3.9 3.5 - 5.1 MMOL/L 05/09/2023 4:38 PM [facility] CHLORIDE S/P/B 104 100 - 108 MMOL/L 05/09/2023 4:38 PM [facility] CO2 28.5 21 - 32 MMOL/L 05/09/2023 4:38 PM [facility] CALCIUM S/P/B 8.9 8.5 - 10.1 MG/DL 05/09/2023 4:38 PM [facility] BILIRUBIN TOTAL S/P/B 0.5 0.2 - 1.2 MG/DL 05/09/2023 4:38 PM [facility] TOTAL PROTEIN S/P/B 7.3 6.4 - 8.2 G/DL 05/09/2023 4:38 PM [facility] ALBUMIN S/P/B 3.9 3.4 - 5.0 G/DL 05/09/2023 4:38 PM [facility] AST 20 15 - 37 U/L 05/09/2023 4:38 PM [facility] ALT 41 14 - 55 U/L 05/09/2023 4:38 PM [facility] ALKALINE PHOSPHATASE S/P/B 79 50 - 136 U/L 05/09/2023 4:38 PM [facility] ANION GAP 7.5 5 - 15 MMOL/L 05/09/2023 4:38 PM [facility] BUN CREATININE RATIO 15.6 6 - 26 05/09/2023 4:38 PM [facility] A/G RATIO 1.1 1.0 - 2.0 RATIO 05/09/2023 4:38 PM [facility] GFR ESTIMATE >90 >90 ML/MIN/1.7 3 M2 05/09/2023 4:38 PM CDT [facility] Comment: NOTE: eGFR is not calculated for patients <18 years of age. This is an estimated GFR calculation using the new CKD EPI creatinine equation without race and so does not require a correction factor for race. This estimated GFR should not be used for calculating drug doses. 05/09/2023 4:15 PM CDT us Neida Epps MD LABORATORY Final Result [facility] [address] [place] [address], documented in this encounter Visit Diagnoses Diagnosis LFT elevation Other abnormal blood chemistry documented in this encounter Care Teams Casting Associate Relationship Specialty Start Date End Date Sahil Flores MD [address] [place] [address] PCP - General FAMILY MEDICINE SPORTS MEDICINE 03/06/21 documented as of this encounter
--- OUTSIDE RECORDS SUMMARY | 2024-08-16 03:18 | XMS_ITS | Encounter Summary ---
Author Organization [facility] Address [facility] [place] [address] Care Team Providers Care Brick Paving Checker Name Role Phone Unavailable Primary Care Provider Unavailabl e Reason for Visit * Reason Comments Ultrasound FAD NST Encounter Details Date Type Department Care Team (Latest Contact Info) Description 04/16/2021 9:00 AM CDT - 04/16/2021 11:59 PM CDT Hospital Encounter [facility] Maternal & Care [address] [place] [address] Elizabeth Thomas MD [address] [address] Discharge Disposition: Home or Self Care Social History Tobacco Use Types Packs/Day Years Used Date Smoking Tobacco: Never Assessed Comments Yes Sex and Gender Information Value Date Recorded Sex Assigned at Not on file Gender Identity Not on file Sexual Orientation Not on file documented as of this encounter Last Filed Vital Signs Vital Sign Reading Time Taken Comments Blood Pressure 109/61 04/16/2021 10:06 AM CDT Pulse 81 04/16/2021 10:06 AM CDT Temperature - - Respiratory Rate 18 04/16/2021 10:06 AM CDT Oxygen Saturation - - Inhaled Oxygen Concentration - - Weight - - Height - - Body Mass Index - - documented in this encounter Progress Notes * Angelina eBrnal RN - 04/16/2021 10:24 AM CDT PT. SCREENED FOR COVID 19 BEFORE ENTERING OFFICE, SEE SEPARATE NOTE. Pt here for NST and BPP visit. Pt accompanied by her sig other. Pt states she is feeling movement. She states she has been feeling contractions intermittently, she reports that they have been 3-5 minutes apart, then they will go away. She states she was seen at the hospital last to rule out rupture. She stated she felt like she was leaking. She was found to be 1cm at that time. Discussed with pt when to return to hospital and pt states understanding. Denies loss of fluid, vaginalbleeding, epigastric pain or unrelieved headaches. No edema noted at this time. NST to be reviewed by Dr. Thomas, via remote, reactive. Name: Sara Kimble Date of : 1990 Today's Date: 04/16/2021 31w4d NST RESULTS (ROY) OBJECTIVE FINDINGS , Pulse: 81, Resp: 18, BP: 109/61 NST Indication(s): Small for dates Uterine Irritability: No Contractions: Irregular Frequency: x 2 Duration (sec) Range: 50-60 Perceived Intensity: Mild OBJECTIVE FINDINGS Movement: Present Monitoring Mode: External Baseline: 145 BPM Variability: Moderate Decelerations: None Accelerations: Yes OTHER INFORMATION Angelina Bernal RN documented in this encounter Plan of Treatment Not on file documented as of this encounter Procedures Procedure Name Priority Date/Time Associated Diagnosis Comments BIOPHYSICAL PROFILE W NST Routine 04/16/2021 9:16 AM CDT Rh negative status during in second trimester (HCC) documented in this encounter Results * BIOPHYSICAL PROFILE W NST (04/16/2021 9:16 AM CDT) Anatomical Region Laterality Modality Other 04/16/2021 9:16 AM CDT Narrative 04/16/2021 10:03 AM CDT ?[facility] ? [facility] ?PHONE: ??FAX: ? Pat. Name: ?KIMBLESARA Pat. No: ?[id number] Study Date: ?? 04/16/2021 ??9:16am , Age: ? 1990, 30 Pregnancies: ?? 2, Para 0 Height: ? 67 in Weight: ? 140 lb LMP: ?09/07/2020 GA by LMP: ?31w4d GA by Base: ?? 31w4d ?? JOSE GA by US: ? 30w6d ?? JOSE GA Selected: ??31w4d (LMP) JOSE D: ?2021 Referring MD: Hali Aguayo MD Deputy Probation Officer: ??Leona Valentino RDMS CPT4: ? 34619,[id number] BMI: ?21.92 Hist/Ind: ? Suspected FGR ?Vyvanse use in early ?Rh negative MEASUREMENTS & AGE ? GROWTH EVALUATION Measurement ??GA ? Range ? Srce %for GA Ratios ----- ---- ------- BPD ??7.5 cm 30w0d (62r1i-00s7y) Hadl BPD 6% FL/BPD 0.80 (0.71 - 0.87) HC ??28.9 cm 31w5d (24r0z-29g6t) Hadl HC ??17% FL/AC ??0.24 (0.20 - 0.24* AC ??24.8 cm 29w0d (21r8f-52w4v) Hadl AC ??1% HC/AC ??1.16 (0.96 - 1.15* FL ?? 6.0 cm 31w1d (30k3b-59o7o) Hadl FL ??23% CI ? 0.71 (0.70 - 0.86) HL ?? 5.3 cm 31w0d (70k2k-15k3h) Darrell HL ??40% GA for sonogram 30w6d (20v9x-77l4o) ?? Weight Estimate: based on (HC,FL) Hadlock ? Weight: 1499 gm (1281-1718gm) Had ? : 3lbs, 4oz ? Normal: 1872 gm (1404- 2340gm) Had ? Wt% ? 6% for 31w4d Heart Rate: 148 bpm Amniotic Fluid Index: 12.0cm (08.7-24.0) Q1: 3.4cm ??Q2: 2.1cm ??Q3: 4.3cm ??Q4: 2.3cm ?? Biophysical Profile: 05/13 Breathin ?? Tone: 2 ?? NST: 2 Movement: ??2 ?? AFV: ??2 EVAL, PLACENTA Presentation: cephalic Umbilical Cord: 3 Vessels Placenta: anterior Heart Rate: 148 bpm Amniotic Fluid Volume: normal DOPPLER Umbilical - Mid Cord S/D ??2.48(1.86 - 3.91) ? PI ?? 0.88 (0.67 - 1.26) ? Anatomy!Normal!Abnormal!Suboptimal!Prev. Seen!Comments Situs ?! ?? x ??! ?! ?! ?! Stomach ?! ?? x ??! ?! ?! ?! Bladder ?! ?? x ??! ?! ?! ?! 3 Vessel Cord! ?? x ??! ?! ?! ?! CLINICAL SUMMARY Study Number: 5 ?? No abnormalities were detected during today's limited review of the anatomy. The FHR baseline was 140 bpm during today's reactive NST. The FHR variability was moderate and no decelerations were detected. IMPRESSION: ?? 1) Roy gestation, 31w4d 2) Today? s AC measurement <3rd centile is again consistent with growth restriction [...] your patient. Elizabeth Thomas MD <Electronic Signature> ??04/16/2021 10:00am Oziel Mayers MD [facility] ORDERABLES documented in this encounter Visit Diagnoses Diagnosis Second (HCC) state, incidental Small for gestational age (SGA) (HCC) Ixkyj-div-umwmh without mention of malnutrition, unspecified (weight) Rh negative status during in second trimester (HCC) Poor growth affecting management of mother in third trimester, single or unspecified fetus (HCC) 31 weeks gestation of (HCC) state, incidental documented in this encounter
--- OUTSIDE RECORDS SUMMARY | 2024-08-16 03:18 | XMS_ITS | Encounter Summary ---
Author Organization [facility] Address [address] [place] [address]. [place], [place] [address] [place] [address] Care Team Providers Care Outdoor Studies Director Name Role Phone Sahil Flores MD Primary Care Provider [phone] Encounter Details Date Type Department Care Team (Latest Contact Info) Description 05/15/2022 Travel Social History Tobacco Use Types Packs/Day [...] on filedocumented in this encounter Care Teams Outdoor Studies Director Relationship Specialty Start Date End Date Sahil Flores MD [address] [place] [address] PCP - General FAMILY MEDICINE SPORTS MEDICINE 03/06/21 documented as of this encounter
--- OUTSIDE RECORDS SUMMARY | 2024-08-16 03:18 | XMS_ITS | Encounter Summary ---
Author Organization [facility] Address [address] [place] [address]. [place], [place] [address] [place] [address] Care Team Providers Care Cash Specialist Name Role Phone Sahil Flores MD Primary Care Provider [phone] Encounter Details Date Type Department Care Team (Latest Contact Info) Description 05/25/2021 Travel Social History Tobacco Use Types Packs/Day [...] as of this encounter Functional Status * Question Answer Date of Assessment Author Status Do you have serious difficulty walking or climbing stairs? No 05/25/2021 10:44 AM CDT Inez Kim RN Activ e * Question Answer Date of Assessment Author Status Do you have difficulty dressing or bathing? No 05/25/2021 10:44 AM DYLANT Inez Kim RN A ctive Because of a physical, mental, or emotional condition, do you have difficulty doing errands alone such as visiting a doctor's office or shopping? No 05/25/2021 10:44 AM Inez Patrick RN Active * RETIRED Are you deaf [...] Assessment Author Status No 05/25/2021 10:44 AM nIez Patrick RN Active * Do you have [...] on filedocumented in this encounter Care Teams Cash Specialist Relationship Specialty Start Date End Date Sahil Flores MD [address] [place] [address] PCP - General FAMILY MEDICINE SPORTS MEDICINE 03/06/21 documented as of this encounter
--- OUTSIDE RECORDS SUMMARY | 2024-08-16 03:18 | XMS_ITS | Encounter Summary ---
Author Organization [facility] Address [address] [place] [address] Care Team Providers Care Needle Punch Operator Name Role Phone Unavailable Primary Care Provider Unavailabl e Encounter Details Date Type Department Care Team (Latest Contact Info) Description 03/19/2021 1:00 PM CDT - 03/19/2021 11:59 PM CDT Hospital Encounter [facility] Maternal & Care [address] [place] [address] Ricardo Walden MD Discharge Disposition: Home or Self Care Social History Tobacco Use Types Packs/Day Years Used Date Smoking Tobacco: Never Assessed Comments Yes Sex and Gender Information Value Date Recorded Sex Assigned at Not on file Gender Identity Not on file Sexual Orientation Not on file documented as of this encounter Plan of Treatment Not on file documented as of this encounter Procedures Procedure Name Priority Date/Time Associated Diagnosis Comments SONOGRAM - COMPLETE Routine 03/19/2021 1 :23 PM CDT Rh negative status during in second trimester (HCC) documented in this encounter Results * SONOGRAM - COMPLETE (03/19/2021 1:23 PM CDT) Anatomical Region Laterality Modality Other 03/19/2021 1:23 PM CDT Narrative 03/19/2021 4:49 PM CDT ? - [facility] ? [facility] ?PHONE: ??FAX: ? Pat. Name: ?SARA KIMBLE Pat. No: ?[id number] Study Date: ?? 03/19/2021 ??1:23pm , Age: ? 1990, 30 Pregnancies: ?? 2, Para 0 Weight: ? 140 lb LMP: ?09/07/2020 GA by LMP: ?27w4d GA by US: ? 26w1d ?? JOSE GA Selected: ??27w4d (LMP) JOSE D: ?2021 Referring MD: Hali Aguayo MD Welcome Wagon Hostess: ??Comfort Cisse RDMS CPT4: ? [id number] Hist/Ind: ? Incomplete anatomy ?Vyvanse use in early ?Rh negative MEASUREMENTS & AGE ? GROWTH EVALUATION Measurement ??GA ? Range ? Srce %for GA Ratios ----- ---- ------- BPD ??6.3 cm 25w5d (61x6a-68k6j) Hadl BPD 2% FL/BPD 0.78 (0.71 - 0.87) HC ??24.7 cm 26w6d (81k7w-36z4b) Hadl HC ??7% FL/AC ??0.22 (0.20 - 0.24) AC ??21.9 cm 26w3d (18a8o-05u5t) Hadl AC ??11% HC/AC ??1.13 (1.00 - 1.18) FL ?? 4.9 cm 26w4d (21n4q-97z1r) Hadl FL ??10% CI ? 0.70 (0.70 - 0.86) HL ?? 4.6 cm 27w0d (49a1l-86h1i) Darrell HL ??40% GA for sonogram 26w1d (80v4o-11k6y) ?? Weight Estimate: based on (BPD,HC,AC,FL) Hadlock ?Weight: 936 gm (799-1073gm) Hadlo ? : 2lbs, 1oz ? Normal: 1148 gm (861- 1435gm) Hadl ? Wt% ? 8% for 27w4d Heart Rate: 153 bpm Amniotic Fluid Index: 03.6cm (Deepest Pocket) EVAL, PLACENTA Presentation: breech Placenta: anterior Heart Rate: 153 bpm Amniotic Fluid Volume: normal DOPPLER Umbilical - Mid Cord S/D ??2.29(2.12 - 4.42) ? PI ?? 0.79 (0.76 - 1.36) ? Anatomy!Normal!Abnormal!Suboptimal!Prev. Seen!Comments Cranium ?! ?! ?! ?! ? x ?! Mdl (CSP/Thal! ?! ?! ?! ? x ?! Ventricles ?? ! ?! ?! ?! ? x ?! Choroid Plexu! ?! ?! ?! ? x ?! Cerebellum ?? ! ?! ?! ?! ? x ?! Cerebellar Ve! ?! ?! ?! ? x ?! Cisterna M. ??! ?! ?! ?! ? x ?! Nuchal Fold ??! ?! ?! ?! ? x ?! Orbits ? ! ?? x ??! ?! ?! ?! Profile ?! ?! ?! ?! ? x ?! Nasal Bone ?? ! ?! ?! ?! ? x ?! Lip ?! ?! ?! ?! ? x ?! Maxilla ?! ?! ?! ?! ? x ?! Mandible ? ! ?! ?! ?! ? x ?! Neck ? ! ?! ?! ?! ? x ?! Spine ?! ?! ?! ?! ? x ?! Lungs ?! ?! ?! ?! ? x ?! 4 Chamber Hea! ?! ?! ?! ? x ?! LVOT ? ! ?! ?! ?! ? x ?! RVOT ? ! ?! ?! ?! ? x ?! 3 Vessel View! ?! ?! ?! ? x ?! 3 Vessel Trac! ?! ?! ?! ? x ?! Cross-over ?? ! ?! ?! ?! ? x ?! Ductal Arch ??! ?! ?! ?! ? x ?! Aortic Arch ??! ?! ?! ?! ? x ?! Caval View ?? ! ?! ?! ?! ? x ?! Situs ?! ?! ?! ?! ? x ?! Diaphragm ?! ?! ?! ?! ? x ?! Stomach ?! ?? x ??! ?! ?! ? x ?! Liver ?! ?! ?! ?! ? x ?! Bowel ?! ?! ?! ?! ? x ?! Kidneys ?! ?? x ??! ?! ?! ? x ?! Bladder ?! ?? x ??! ?! ?! ? x ?! 3 Vessel Cord! ?! ?! ?! ? x ?! Cord In! ?! ?! ?! ? x ?! Upper Extremi! ?! ?! ?! ? x ?! Hands ?! ?! ?! ?! ? x ?! Lower Extremi! ?! ?! ?! ? x ?! Feet ? ! ?! ?! ?! ? x ?! External Raya! ?! ?! ?! ? x ?! Placental Cor! ?! ?! ?! ? x ?! CLINICAL SUMMARY Study Number: 2 ?? A single fetus is seen in breech presentation. ??The measurements today are consistent with less than expected size for the JOSE D provided. ??The JOSE D is based on her LMP and a prior ultrasound. ??The amniotic fluid volume is within normal limits. ?? anatomy was technically adequate. ??No major malformations were seen within the limitations of ultrasound. ?? IMPRESSION: Single, live, intrauterine at 27w4d ?? size is small for gestational age ?? Amniotic fluid volume: within normal limits ?? Reassuring umbilical artery Dopplers RECOMMEND: Ultrasound in 2-3 weeks for growth Thank you for allowing us the opportunity to care for your patient Ricardo Walden MD <Electronic Signature> ??03/19/2021 04:49pm Oziel Mayers MD [facility] ORDERABLES documented in this encounter Visit Diagnoses Diagnosis Rh negative status during in second trimester ([facility])- Primary SGA (small for gestational age), , affecting care of mother, antepartum, second trimester, not applicable or unspecified fetus ([facility]) 27 weeks gestation of ([facility]) state, incidental documented in this encounter
--- OUTSIDE RECORDS SUMMARY | 2024-08-16 03:19 | XMS_ITS | Encounter Summary ---
Author Organization [facility] Address [address] [place] [address]. [place], [place] [id number] [place] [address] Care Team Providers Care Assembly Supervisor Name Role Phone Sahil Flores MD Primary Care Provider [phone] Encounter Details Date Type Department Care Team (Late st Contact Info) Description 03/12/2021 Orders Only [facility] [address] [place] [address] Cari Martinez, [facility] [address] [place] [address] Social History Tobacco Use Types [...] have Coronavirus / COVID-19? No / Unsure 03/12/2021 12:57 PM CDT documented as of this encounter Plan of Treatment Not on file documented as of this encounter Results * HIV - RAPID (03/12/2021 2:06 PM CDT) HIV RAPID NON-REACTIV E NON-REACTI VE 03/12/2021 2:40 PM CDT [facility] 03/12/2021 2:06 PM CDT [facility] Final Result [facility] [address] [place] [address], [place] [phone] * SYPHILIS/RPR/VDRL; QUAL (03/12/2021 2:06 PM CDT) Pathologist [facility] RPR REPORT 03/16/2021 3:50 PM CDT [employer] NADIYA AVINA Comment: RPR(Monitor) w/Refl Titer ??Non-Reactive ? Reference range: ??Non-Reactive Test Performed by [employer], [employer] [facility], [address] [place] [address] Campbell Elena M.D., Ph.D., Director of Laboratories , [facility] [id number] 03/12/2021 2:06 PM CDT [facility] Final Result Performing Organization Address [facility]/ZIP Co de Phone Number [employer] [address] [address], [place] [phone] * (ABNORMAL) CBC W/DIFF AUTOMATED (03/12/2021 2:06 PM CDT) Pathologist [facility] WBC 10.0 4.4 - 11.0 x10'3/uL 03/12/2021 2:22 PM CDT [facility] RBC 4.00(L) 4.50 - 5.10 x10'6/uL 03/12/2021 2:22 PM CDT [facility] HGB 13.2 12.3 - 15.3 G/DL 03/12/2021 2:22 PM CDT [facility] HCT 39.4 35.9 - 44.6 % 03/12/2021 2:22 PM T [facility] MCV 98.5(H) 80.0 - 96.0 FL 03/12/2021 2:22 PM CDT [facility] MCH 33.0(H) 25.3 - 30.9 PG 03/12/2021 2:22 PM CDT [facility] MCHC 33.5 31.0 - 34.1 G/DL 03/12/2021 2:22 PM T [facility] RDW 13.1 12.4 - 15.1 % 03/12/2021 2:22 PM T [facility] PLT 205 151 - 353 x10'3/uL 03/12/2021 2:22 PM T [facility] MPV 9.8 9.6 - 12.0 FL 03/12/2021 2:22 PM T [facility] RBC MORPHOLOGY NORMAL 03/12/2021 2:22 PM T [facility] PLT MORPH. NORMAL 03/12/2021 2:22 PM T [facility] WBC MORPHOLOGY NORMAL 03/12/2021 2:22 PM T [facility] LYMPHOCYTES % 10.2(L) 15.8 - 45.0 % 03/12/2021 2:22 PM T [facility] NEUTROPHILS % 82.3(H) 42.1 - 71.9 % 03/12/2021 2:22 PM T [facility] MONOCYTES % 5.4(L) 5.7 - 12.5 % 03/12/2021 2:22 PM T [facility] EOSINOPHILS 0.7 0.0 - 5.6 % 03/12/2021 2:22 PM CDT [facility] BASOPHILS 0.6 0.0 - 1.3 % 03/12/2021 2:22 PM CDT [facility] ABS. NEUTROPHILS TOTAL 8.24(H) 1.40 - 6.00 x10'3/uL 03/12/2021 2:22 PM CDT [facility] IMMATURE GRANS % 0.8(H) 0.0 - 0.5 % 03/12/2021 2:22 PM CDT [facility] ABS. LYMPHOCYTES 1.02 0.80 - 4.70 x10'3/uL 03/12/2021 2:22 PM CDT [facility] 03/12/2021 2:06 PM CDT Cari Martinez [facility] Final Result [facility] [address] [place] [address], [place] [phone] * GLUCOSE 1 HR PP (03/12/2021 2:06 PM CDT) GLUCOSE 1 HOUR POST DOSE 84 70 - 130 MG/DL 03/12/2021 2:33 PM CDT [facility] 03/12/2021 2:06 PM CDT Cari Martinez [facility] Final Result Performing Organization Address City/[facility]/ZIP Co de Phone Number [facility] [address] [place] [address], [place] [phone] * DRUG SCREEN RAPID (03/12/2021 1:30 PM CDT) AMPHETAMINE (U) NONE DETECTED NONE DETECTED 03/12/2021 1:47 PM CDT [facility] BARBITURATES SCREEN (U) NONE DETECTED NONE DETECTED 03/12/2021 1:47 PM CDT [facility] BENZODIAZEPINES SCREEN (U) NONE DETECTED NONE DETECTED 03/12/2021 1:47 PM CDT [facility] BUPRENORPHINE SCREEN (U) NONE DETECTED NONE DETECTED 03/12/2021 1:47 PM CDT [facility] COCAINE METABOLITES (U) NONE DETECTED NONE DETECTED 03/12/2021 1:47 PM CDT [facility] METHAMPHETAMINE (U) NONE DETECTED NONE DETECTED 03/12/2021 1:47 PM CDT [facility] METHADONE (U) NONE DETECTED NONE DETECTED 03/12/2021 1:47 PM CDT [facility] OPIATE SCREEN (U) NONE DETECTED NONE DETECTED 03/12/2021 1:47 PM CDT [facility] OXYCODONE SCREEN (U) NONE DETECTED NONE DETECTED 03/12/2021 1:47 PM CDT [facility] PHENCYCLIDINE PCP (U) NONE DETECTED NONE DETECTED 03/12/2021 1:47 PM CDT [facility] PROPOXYPHENE SCREEN (U) NONE DETECTED NONE DETECTED 03/12/2021 1:47 PM CDT [facility] CANNABINOIDS SCREEN (U) NONE DETECTED NONE DETECTED 03/12/2021 1:47 PM CDT [facility] TRICYCLIC ANTIDEPRESSANT SCREEN (U) NONE DETECTED NONE DETECTED 03/12/2021 1:47 PM CDT [facility] Comment: NOTE: RESULTS OF THIS DRUG SCREEN SHOULD BE USED FOR MEDICAL PURPOSES ONLY AND NOT FOR LEGAL OR EMPLOYMENT PURPOSES. POSITIVE RESULTS ARE CONFIRMED BY [employer]. ??MEDICATIONS CONTAINING EPHEDRINE MAY CAUSE FALSE POSITIVE AMPHETAMINE. AMPHETAMINE- ?500 NG/ML BARBITURATE- ?200 NG/ML BENZODIAZEPINE- ?? 150 NG/ML BUPRENORPHINE- ? 10 NG/ML COCAINE- ?150 NG/ML METHAMPHETAMINES- 500 NG/ML METHADONE- ?200 NG/ML OPIATE- ? 100 NG/ML OXYCODONE- ?100 NG/ML PCP- ? 25 NG/ML PROPOXYPHENE- ? 300 NG/ML THC- ? 50 NG/ML TCA- ?300 NG/ML U PH 6.0 03/12/2021 1:48 PM CDT [facility] Urine specimen (specimen) URINE SPECIMEN / Unknown 03/12/2021 1:30 PM CDT Cari [facility] URINE ORDERABLES Final Resul t Performing Organization Address [facility] de Phone Number [facility] [address] [place] [address], [place] [phone] * RHOGAM ANTEPARTUM (03/12/2021 1:06 PM CDT) UNITS ORDERED 1 03/12/2021 1:03 PM CDT [facility] ABO/RH O NEGATIVE 03/12/2021 1:54 PM CDT [facility] ANTIBODY SCREEN NEGATIVE 03/12/2021 1:54 PM CDT [facility] 03/12/2021 1:06 PM CDT us Cari Martinez CNM BLOOD BANK PRODUCT ORDERABLE S Final Result Performing Organization Address [facility] de Phone Number [facility] [address] [place] [address], [place] [phone] documented in this encounter Visit Diagnoses Diagnosis Unspecified screening (HHS/HCC)- Primary Unspecified screening documented in this encounter Care Teams Assembly Supervisor Relationship Specialty Start Date End Date Sahil Flores MD [address] [phone] PCP - General FAMILY MEDICINE SPORTS MEDICINE 03/06/21 documented as of this encounter
--- OUTSIDE RECORDS SUMMARY | 2024-08-16 03:19 | XMS_ITS | Encounter Summary ---
Author Organization [facility] Address [address] [place] [address]. [place], [place] [address] [place] [address] Care Team Providers Care Visual Artist Name Role Phone Sahil Flores MD Primary Care Provider [phone] Reason for Visit * Reason Comments Nosebleeds Encounter Details Date Type Department Care Team (Late st Contact Info) Description 03/06/2021 1:36 PM CDT - 03/06/2021 3:35 PM CDT Emergency [facility] Emergency Room [address] [place] [address] Mark Jolly MD [address] [place] [address] Nosebleeds Discharge Disposition: Home or Self Care (Routine [...] have Coronavirus / COVID-19? No / Unsure 03/06/2021 1:25 PM CDT documented as of this encounter Last Filed Vital Signs Vital Sign Reading Time Taken Comments Blood Pressure 109/62 03/06/2021 3:20 PM CDT Pulse 86 03/06/2021 1:33 PM CDT Temperature 36.6 ??C (97.8 ??F) 03/06/2021 1:33 PM CD T Respiratory Rate 18 03/06/2021 1:33 PM CDT Oxygen Saturation 98% 03/06/2021 3:20 PM CDT Inhaled Oxygen Concentration - - Weight 68.9 kg (152 lb) 03/06/2021 1:33 PM CDT Height 170.2 cm (5' 7 ) 03/06/2021 1:33 PM CDT Body Mass Index 23.81 03/06/2021 1:33 PM CDT documented in this encounter Discharge Instructions * Attachments The following attachments cannot be sent through Care Everywhere. * Humidifiers ([place]) * Nosebleeds Discharge Instructions ([place]) documented in this encounter Medications at Time of Discharge sodium chloride (OCEAN NASAL SPRAY) 0.65 % nasal spray 1 spray by Nasal route as needed for Dryness. 15 mL 03/06/2021 04/12/2021 documented as of this encounter ED Notes * Campbell El RN - 03/06/2021 3:33 PM CDT Prescription for saline nasal spray as well as education and instructions for its use were providedto the patient. Discharge education and follow up instructions were also provided to this patient. I did review her discharge paperwork with her as well land she had no questions for me at time of dis charge. She was ambulatory to leave the ED without difficulty and had all belongings with her at time of discharge. * Mark Jolly MD - 03/06/2021 3:30 PM CDT [facility] Note Chief Complaint Chief Complaint Patient presents with ??? Nosebleeds History of Present Illness Patient presents with bilateral epistaxis which began earlier today. She passed a large clot out ofher nare but since her bleeding has stopped. The patient is in her third trimester of andhas had some issues with nosebleeds over the last 2 weeks. The patient is not on any anticoagulantsand otherwise feels well. She has normal discomforts of but no vaginal bleeding or dischar ge, no contractions today. The patient was directed by her PUBLIC STENOGRAPHER to come to the emergency department for evaluation. She denies headache or shortness of breath. Medical History ALLERGIES: No Known Allergies MEDICATIONS: Prior to Admission medications Medication Sig Start Date End Date Taking? Authorizing Provider sodium chloride (OCEAN NASAL SPRAY) 0.65 % nasal spray 1 spray by Nasal route as needed for Dryness. 03/06/21 Yes Mark Jolly MD PAST MEDICAL HISTORY: No past medical history on file. PAST SURGICAL HISTORY: No past surgical history on file. FAMILY HISTORY: No family history on file. SOCIAL HISTORY: Social History Tobacco Use ??? Smoking status: Not on file Substance Use Topics ??? Alcohol use: Not on file ??? Drug use: Not on file Review of Systems Review of Systems HENT: Positive for nosebleeds. Respiratory: Negative for shortness of breath. Cardiovascular: Negative for chest pain. Neurological: Negative for headaches. Hematological: Does not bruise/bleed easily. Physical Exam Filed Vitals: 03/06/21 1333 03/06/21 1520 BP: 130/65 109/62 Pulse: 86 Resp: 18 Temp: 97.8 ??F (36.6 ??C) SpO2: 98% 98% Weight: 68.9 kg (152 lb) Height: 5' 7 (1.702 m) Physical Exam HENT: Head: Normocephalic. Nose: Comments: No apparent source for bleeding, some scant dried blood Mouth/Throat: Mouth: Mucous membranes are moist. Cardiovascular: Rate and Rhythm: Normal rate. Pulmonary: Effort: Pulmonary effort is normal. Musculoskeletal: Right lower leg: No edema. Left lower leg: No edema. Neurological: Mental Status: She is alert. Diagnostic Studies / Procedures RHYTHM STRIP INTERPRETATION: Rhythm: Normal sinus, No arrhythmia Pulse: 86 PULSE OX INTERPRETATION: SpO2: 98 % Oxygen delivery: Room air Interpretation: No hypoxia at this time EKG: No results found for this visit on 03/06/21. EKG interpretation: EKG not performed. Dr. Jolly has personally visualized and interpreted the EKG. LABORATORY STUDIES: Results for orders placed or performed during the hospital encounter of 03/06/21 CBC W/DIFF AUTOMATED Result Value Ref Range WBC 9.8 4.4 - 11.0 x10'3/uL RBC 3.86 (L) 4.50 - 5.10 x10'6/uL HGB 12.6 12.3 - 15.3 G/DL HCT 36.8 35.9 - 44.6 % MCV 95.3 80.0 - 96.0 FL MCH 32.6 (H) 25.3 - 30.9 PG MCHC 34.2 (H) 31.0 - 34.1 G/DL RDW 13.1 12.4 - 15.1 % PLT 226 151 - 353 x10'3/uL MPV 9.8 9.6 - 12.0 FL RBC MORPHOLOGY NORMAL PLT MORPH. NORMAL WBC MORPHOLOGY NORMAL LYMPHOCYTES 13.2 (L) 15.8 - 45.0 % NEUTROPHILS 78.5 (H) 42.1 - 71.9 % MONOCYTES 5.9 5.7 - 12.5 % EOSINOPHILS 1.2 0.0 - 5.6 % BASOPHILS 0.6 0.0 - 1.3 % ABS. NEUTROPHILS TOTAL 7.68 (H) 1.40 - 6.00 x10'3/uL IMMATURE GRANS 0.6 (H) 0.0 - 0.5 % ABS. LYMPHOCYTES 1.29 0.80 - 4.70 x10'3/uL IMAGING STUDIES No orders to display Dr. Jolly has personally visualized and interpreted all imaging studies. ED Course / Medical Decision Making MDM Number of Diagnoses or Management Options Epistaxis: new and requires workup Diagnosis management comments: Patient presents with epistaxis today, since resolved. I do not feelthat she requires nasal packing at this time as she is no longer actively bleeding. CBC was unremarkable, no signs of thrombocytopenia. Her blood pressure is normal and I do not suspect any serious related complications. The patient will be discharged for outpatient follow-up. I have advised saline sprays in the nose, humidifier in the home, and as needed Afrin should her bleeding reconvene. The patient is advised to clamp the nose after instillation of Afrin to help resolve future nosebleeds. She is invited to return to the emergency department if worse in any way. Amount and/or Complexity of Data Reviewed Clinical lab tests: ordered and reviewed Risk of Complications, Morbidity, and/or Mortality Presenting problems: low Diagnostic procedures: low Management options: low Patient Progress Patient progress: improved Medications - No data to display SNOMED CT(R) 1. Epistaxis BLEEDING FROM NOSE Current Discharge Medication List START taking these medications Details sodium chloride (OCEAN NASAL SPRAY) 0.65 % nasal spray 1 spray by Nasal route as needed for Dryness. Qty: 15 mL, Refills: 0 Class: Print Disposition: Discharge Follow-Up: Sahil Flores MD [address] [facility] [address] As needed Mark Jolly MD 03/06/2021 3:35 PM Mark Jolly MD 03/06/21 1535 * Tanika Nelson RN - 03/06/2021 1:33 PM CDT Patient here after experiencing nose bleeds for around a couple months. Today has had a more severenose bleed with a large clot. Patient also 6 months , no complications. documented in this encounter Plan of Treatment Not on file documented as of this encounter Procedures Procedure Name Priority Date/Time Associated Diagnosis Comments CBC W/DIFF AUTOMATED STAT 03/06/2021 2:56 PM CDT documented in this encounter Results * (ABNORMAL) CBC W/DIFF AUTOMATED (03/06/2021 2:56 PM CDT) WBC 9.8 4.4 - 11.0 x10'3/uL 03/06/2021 3:08 PM CDT [facility] RBC 3.86(L) 4.50 - 5.10 x10'6/uL 03/06/2021 3:08 PM CDT [facility] HGB 12.6 12.3 - 15.3 G/DL 03/06/2021 3:08 PM CDT [facility] HCT 36.8 35.9 - 44.6 % 03/06/2021 3:08 PM CDT [facility] MCV 95.3 80.0 - 96.0 FL 03/06/2021 3:08 PM CDT [facility] MCH 32.6(H) 25.3 - 30.9 PG 03/06/2021 3:08 PM T [facility] MCHC 34.2(H) 31.0 - 34.1 G/DL 03/06/2021 3:08 PM T [facility] RDW 13.1 12.4 - 15.1 % 03/06/2021 3:08 PM T [facility] PLT 226 151 - 353 x10'3/uL 03/06/2021 3:08 PM T [facility] MPV 9.8 9.6 - 12.0 FL 03/06/2021 3:08 PM T [facility] RBC MORPHOLOGY NORMAL 03/06/2021 3:08 PM T [facility] PLT MORPH. NORMAL 03/06/2021 3:08 PM T [facility] WBC MORPHOLOGY NORMAL 03/06/2021 3:08 PM T [facility] LYMPHOCYTES % 13.2(L) 15.8 - 45.0 % 03/06/2021 3:08 PM T [facility] NEUTROPHILS % 78.5(H) 42.1 - 71.9 % 03/06/2021 3:08 PM T [facility] MONOCYTES % 5.9 5.7 - 12.5 % 03/06/2021 3:08 PM T [facility] EOSINOPHILS 1.2 0.0 - 5.6 % 03/06/2021 3:08 PM T [facility] BASOPHILS 0.6 0.0 - 1.3 % 03/06/2021 3:08 PM T [facility] ABS. NEUTROPHILS TOTAL 7.68(H) 1.40 - 6.00 x10'3/uL 03/06/2021 3:08 PM CDT [facility] IMMATURE GRANS % 0.6(H) 0.0 - 0.5 % 03/06/2021 3:08 PM CDT [facility] ABS. LYMPHOCYTES 1.29 0.80 - 4.70 x10'3/uL 03/06/2021 3:08 PM CDT [facility] 03/06/2021 2:56 PM CDT us Mark Jolly MD LABORATORY Final Result Performing Organization Address City/State/[facility] Co de Phone Number [facility] [address] [phone], documented in this encounter Visit Diagnoses Diagnosis Epistaxis- Primary documented in this encounter Care Teams Visual Artist Relationship Specialty Start Date End Date Sahil Flores MD [address] [place] [address] PCP - General FAMILY MEDICINE SPORTS MEDICINE 03/06/21 documented as of this encounter
--- OUTSIDE RECORDS SUMMARY | 2024-08-16 03:19 | XMS_ITS | Encounter Summary ---
Author Organization [facility] Address [address] [place] [address]. [place], [place] [address] [place] [address] Care Team Providers Care Racker Octave Board Name Role Phone Sahil Galo MD Primary Care Provider [phone] Encounter Details Date Type Department Care Team (Late st Contact Info) Description 11/03/2020 Orders Only [facility] [address] [place] [address] Cari Martinez, [facility] [address] [place] [address] Social History Tobacco Use Types Packs/Day Years Used Date Smoking Tobacco: Never Assessed Comments Unknown Sex and Gender Information Value Date Recorded Sex Assigned at Not on file Legal Sex Female 10:24 PM CDT Gender Identity Not on file Sexual Orientation Not on file COVID-19 Exposure Response Date Recorded In the last month, have you been in contact with someone who was confirmed or suspected to have Coronavirus / COVID-19? No / Unsure 11/03/2020 9:37 AM CDT documented as of this encounter Plan of Treatment Not on file documented as of this encounter Results * (ABNORMAL) DRUG SCREEN RAPID (11/03/2020 9:47 AM CDT) AMPHETAMINE (U) POSITIVE(A) NEGATIVE 11/04/19 21 11:22 AM CDT [facility] (B) [facility] BARBITURATES SCREEN (U) NEGATIVE NEGATIVE 11/03/2020 11:22 AM [facility] BENZODIAZEPINES SCREEN (U) NEGATIVE NEGATIVE 11/03/2020 11:22 AM [facility] BUPRENORPHINE SCREEN (U) NEGATIVE NEGATIVE 11/03/2020 11:22 AM [facility] COCAINE METABOLITES (U) NEGATIVE NEGATIVE 11/03/2020 11:22 AM [facility] METHAMPHETAMINE (U) NEGATIVE NEGATIVE 11/03/2020 11:22 AM [facility] METHADONE (U) NEGATIVE NEGATIVE 11/03/2020 11:22 AM [facility] OPIATE SCREEN (U) NEGATIVE NEGATIVE 021 11:22 AM [facility] OXYCODONE SCREEN (U) NEGATIVE NEGATIVE 11/03/2020 11:22 AM [facility] PHENCYCLIDINE PCP (U) NEGATIVE NEGATIVE 11/03/2020 11:22 AM [facility] PROPOXYPHENE SCREEN (U) NEGATIVE NEGATIVE 11/03/2020 11:22 AM [facility] CANNABINOIDS SCREEN (U) NEGATIVE NEGATIVE 11/03/2020 11:22 AM [facility] TRICYCLIC ANTIDEPRESSANT SCREEN (U) NEGATIVE NEGATIVE 11/03/2020 11:22 AM [facility] Comment: NOTE: RESULTS OF THIS DRUG SCREEN SHOULD BE USED FOR MEDICAL PURPOSES ONLY AND NOT FOR LEGAL OR EMPLOYMENT PURPOSES. POSITIVE RESULTS ARE NOT CONFIRMED. MEDICATIONS CONTAINING EPHEDRINE MAY CAUSE FALSE POSITIVE AMPHETAMINE Cut-off Concentration for a positive result AMPHETAMINE- ?500 NG/ML BARBITURATE- ?200 NG/ML BENZODIAZEPINE- ?? 150 NG/ML BUPRENORPHINE- ? 10 NG/ML COCAINE- ?150 NG/ML METHAMPHETAMINES- 500 NG/ML METHADONE- ?200 NG/ML OPIATE- ? 100 NG/ML OXYCODONE- ?100 NG/ML PCP- ? 25 NG/ML PROPOXYPHENE- ? 300 NG/ML THC- ? 50 NG/ML TCA- ?300 NG/ML Urine specimen (specimen) URINE SPECIMEN / Unknown 11/03/2020 9:47 AM CDT us Cari CHRISTIANSON URINE ORDERABLES Final Resul t Performing Organization Address [facility] Co de Phone Number [facility] [address] [place] [address], * ANTIBODY SCREEN (11/03/2020 9:47 AM CDT) ANTIBODY SCREEN NEGATIVE 11/03/2020 11:51 AM CDT [facility] 11/03/2020 9:47 AM CDT us Cari CHRISTIANSON BLOOD BANK TEST ORDERABLES F inal Result Performing Organization Address [facility] Co de Phone Number [facility] [address] [place] [address], [place] [phone] * BLOOD TYPING, ABO AND RH (11/03/2020 9:47 AM CDT) ABO/RH O NEGATIVE 11/03/2020 11:50 AM CDT [facility] 11/03/2020 9:47 AM CDT us Cari CHRISTIANSON BLOOD BANK TEST ORDERABLES F inal Result [facility] [address] [place] [address], [place] [phone] * CULTURE URINE (11/03/2020 9:47 AM CDT) SPEC DESCRIPTION URINE CLEAN CATCH 11/03/2020 9:48 AM CDT [facility] SPECIAL REQUESTS NO SPECIAL REQUEST 11/03/2020 9:48 AM CDT [facility] CULTURE RESULT NO GROWTH 2 DAYS 11/05/2020 8:36 AM CDT [facility] URINE SPECIMEN OBTAINED BY CLEAN CATCH PROCEDURE / Unknown 11/03/2020 9:47 AM CDT 11/03/2020 10:00 AM CDT us Cari Martinez CNM MICROBIOLOGY - GENERAL ORDER ZAKI Final Result Performing Organization Address [facility] Co de Phone Number [facility] [address] [place] [address], [place] [phone] [facility] [address] [place] [address], [place] [phone] * HIV 1 ANTIGEN(S), WITH HIV-1 AND HIV-2 ANTIBODIES (11/03/2020 9:47 AM CDT) Pathologist [facility] HIV 1/2 AB+ HIV1 P24 AG NON-REACTI VE NON-REACTI VE 11/03/2020 4:05 PM CDT [facility] 11/03/2020 9:47 AM CDT us Cari Martinez CNM LABORATORY Final Result [facility] [address] [place] [address], [place] [phone] * (ABNORMAL) URINALYSIS (11/03/2020 9:47 AM CDT) COLOR (U) LIGHT YELLOW 11/03/2020 11:49 AM CDT [facility] TRANSPARENCY CLEAR 11/03/2020 11:49 AM CDT [facility] SPECIFIC GRAVITY (U) 1.005 1.002 - 1.030 11/03/2020 11:49 AM CDT [facility] U PH 7.0 4.5 - 8.0 11/03/2020 11:49 AM CDT [facility] LEUKOCYTES (U) NEGATIVE NEGATIVE 11/03/2020 11:49 AM CDT [facility] NITRITES NEGATIVE NEGATIVE 11/03/2020 11:49 AM CDT [facility] PROTEIN (U) NEGATIVE NEGATIVE 11/03/2020 11:49 AM T [facility] URINE GLUCOSE NEGATIVE NEGATIVE 11/03/2020 11:49 AM T [facility] KETONES MG/DL (U) NEGATIVE NEGATIVE 11/03/2020 11:49 AM CDT [facility] UROBILINOGEN NORMAL NORMAL EU/DL 11/03/2020 11:49 AM CDT [facility] BILIRUBIN (U) NEGATIVE NEGATIVE 11/03/2020 11:49 AM CDT [facility] BLOOD (U) 1+(A) NEGATIVE 11/03/2020 11:49 AM CDT [facility] WBC/HPF 0-5 /HPF 11/03/2020 11:49 AM CDT [facility] RBC/HPF 0-2 /HPF 11/03/2020 11:49 AM CDT [facility] EPI/HPF 0-5 /HPF 11/03/2020 11:49 AM CDT [facility] BACTERIA (U) TRACE /HPF 11/03/2020 11:49 AM CDT [facility] URINE SPECIMEN OBTAINED BY CLEAN CATCH PROCEDURE / Unknown 11/03/2020 9:47 AM CDT Cari CHRISTIANSON URINE ORDERABLES Final Resul t [facility] [address] [place] [address], [place] [phone] * SYPHILIS IGG AB (11/03/2020 9:47 AM CDT) SYPHILIS IGG AB NON-REACTI VE NON-REACTI VE 11/07/2020 3:26 PM CDT [facility] 11/03/2020 9:47 AM CDT Cari CHRISTIANSON LABORATORY Final Result Performing Organization Address City/[facility]/ZIP Co de Phone Number [facility] [address] [place] [address], [place] [phone] * RUBELLA IGG (11/03/2020 9:47 AM CDT) RUBELLA IGG AB 112.00 11/03/2020 3:25 PM CDT [facility] Comment: IMMUNITY PRESENT RUBELLA IGG ANTIBODY INTERPRETATION <5 IU/ML SUGGESTS NONIMMUNITY >=5 TO <10 IU/ML EQUIVOCAL RANGE >=10 IU/ML SUGGESTS IMMUNITY FOR SPECIMENS IN THE EQUIVOCAL RANGE, A ?? NEW SPECIMEN SHOULD BE OBTAINED IN 6 WEEKS ?? AND RETESTED FOR RUBELLA IGG ANTIBODY. ?? ANTIBODY LEVELS IN THE EQUIVOCAL RANGE ?? MAY BE INSUFFICIENT TO PROTECT AGAINST ?? CLINICAL ILLNESS UPON EXPOSURE TO ?? RUBELLA VIRUS. 11/03/2020 9:47 AM CDT Cari Martinez [facility] LABORATORY Final Result Performing Organization Address [facility]/ZIP Co de Phone Number [facility] [address] [place] [address], [place] [phone] * HEPATITIS B SURFACE AG, EIA (11/03/2020 9:47 AM CDT) Pathologist [facility] HEPATITIS B SURFACE AG NON-REACTI VE NON-REACTI VE 11/03/2020 3:06 PM CDT [facility] 11/03/2020 9:[address] [facility] Final Result Performing Organization Address [facility] Co de Phone Number [facility] [address] [place] [address], [place] [phone] * (ABNORMAL) CBC W/DIFF AUTOMATED (11/03/2020 9:47 AM CDT) WBC 7.2 4.8 - 10.8 x10'3/uL 11/03/2020 10:51 AM CDT [facility] RBC 4.95 4.10 - 5.10 x10'6/uL 11/03/2020 10:51 AM CDT [facility] HGB 14.9 12.0 - 16.0 G/DL 11/03/2020 10:51 AM CDT [facility] HCT 44.3 36 - 46 % 11/03/2020 10:51 AM CDT [facility] MCV 89.5 80 - 100 FL 11/03/2020 10:51 AM CDT [facility] MCH 30.1 26.0 - 34.0 PG 11/03/2020 10:51 AM CDT [facility] MCHC 33.6 31.0 - 37.0 G/DL 11/03/2020 10:51 AM CDT [facility] RDW 13.1 11.5 - 14.5 % 11/03/2020 10:51 AM CDT [facility] PLT 300 150 - 350 x10'3/uL 11/03/2020 10:51 AM CDT [facility] CBC COMMENT AUTOMATED RBC MORPHOLOGY AND PLATELET EVALUATION NORMAL 11/03/2020 10:51 AM CDT [facility] NEUTROPHILS % 75.1(H) 50 - 70 % 11/03/2020 10:51 AM CDT [facility] LYMPHOCYTES % 18.0 18 - 42 % 11/03/2020 10:51 AM CDT [facility] MONOCYTES % 6.0 2.0 - 11.0 % 11/03/2020 10:51 AM CDT [facility] EOSINOPHILS 0.6(L) 1.0 - 3.0 % 11/03/2020 10:51 AM CDT [facility] BASOPHILS 0.3 0.0 - 1.0 % 11/03/2020 10:51 AM CDT [facility] ABS. NEUTROPHILS TOTAL 5.37 1.69 - 7.81 x10'3/uL 11/03/2020 10:51 AM T [facility] 11/03/2020 9:47 AM CDT Cari Martinez CNM LABORATORY Final Result [facility] [address] [place] [address], documented in this encounter Visit Diagnoses Diagnosis Encounter for other specified screening (HHS/HCC)- Primary documented in this encounter Care Teams Racker Octave Board Relationship Specialty Start Date End Date Sahil Galo MD [facility] [place] [address] PCP - General 10/25/15 03/05/21 documented as of this encounter
--- OUTSIDE RECORDS SUMMARY | 2024-08-16 03:19 | XMS_ITS | Encounter Summary ---
Author Organization [facility] Address [address] [place] [address]. [place], [place] [id number] [place] [address] Care Team Providers Care Habitat Management Coordinator Name Role Phone Sahil Galo MD Primary Care Provider [phone] Encounter Details Date Type Department Care Team (Late st Contact Info) Description 10/29/2019 9:30 AM CDT - 10/29/2019 9:36 AM CDT Hospital Encounter [facility] [address] [place] [address] Sahil Flores MD [address] [place] [address] Discharge Disposition: Home or Self Care (Routine [...] have Coronavirus / COVID-19? No / Unsure 10/29/2019 9:34 AM CDT documented as of this encounter Plan of Treatment Not on file documented as of this encounter Procedures Procedure Name Priority Date/Time Associated Diagnosis Comments COMPREHENSIVE METABOLIC PANEL Routine 10/29/2019 9:42 AM CDT Stomach ache Diarrhea of presumed infectious origin HEPATITIS PANEL,ACUTE Routine 10/29/2019 9:42 AM CDT Stomach ache Diarrhea of presumed infectious origin C-REACTIVE PROTEIN Routine 10/29/2019 9: 42 AM CDT Stomach ache Diarrhea of presumed infectious origin CBC W/DIFF AUTOMATED Routine 10/29/2019 9:42 AM CDT Stomach ache Diarrhea of presumed infectious origin documented in this encounter Results * HEPATITIS PANEL,ACUTE (10/29/2019 9:42 AM CDT) HEPATITIS B SURFACE AG NON-REACTI VE NON-REACTI VE 10/29/2019 2:45 PM CDT [facility] HEP B CORE IGM NON-REACTI VE NON-REACTI VE 10/29/2019 2:45 PM CDT [facility] HAV IGM NON-REACTI VE NON-REACTI VE 10/29/2019 2:45 PM CDT [facility] HEPATITIS C AB NON-REACTI VE NON-REACTI VE 10/29/2019 2:45 PM CDT [facility] 10/29/2019 9:42 AM CDT Sahil Flores MD LABORATORY Final Result Performing Organization Address City/[facility]/ZIP Co de Phone Number [facility] [address] [place] [address], [place] [phone] * C-REACTIVE PROTEIN (10/29/2019 9:42 AM CDT) C-REACTIVE PROTEIN <0.20 <0.9 mg/dL 10/29/2019 10:[address] [facility] 10/29/2019 9:42 AM CDT us Sahil Flores MD LABORATORY Final Result [facility] [address] [place] [address], * (ABNORMAL) COMPREHENSIVE METABOLIC PANEL (10/29/2019 9:42 AM CDT) [facility] GLUCOSE 83 70 - 99 MG/DL 10/29/2019 10:31 AM CDT [facility] BUN 12 7 - 18 MG/DL 10/29/2019 10:31 AM CDT [facility] CREATININE S/P/B 1.03(H) 0.55 - 1.02 MG/DL 10/29/2019 10:31 AM CDT [facility] SODIUM S/P/B 141 136 - 145 MMOL/L 10/29/2019 10:31 AM CDT [facility] POTASSIUM S/P/B 3.9 3.5 - 5.1 MMOL/L 10/29/2019 10:31 AM CDT [facility] CHLORIDE S/P/B 105 100 - 108 MMOL/L 10/29/2019 10:31 AM CDT [facility] CO2 26.7 21 - 32 MMOL/L 10/29/2019 10:31 AM T [facility] CALCIUM S/P/B 8.6 8.5 - 10.1 MG/DL 10/29/2019 10:31 AM T [facility] BILIRUBIN TOTAL S/P/B 0.5 0.2 - 1.2 MG/DL 10/29/2019 10:31 AM CDT [facility] TOTAL PROTEIN S/P/B 7.3 6.4 - 8.2 G/DL 10/29/2019 10:31 AM T [facility] ALBUMIN S/P/B 3.6 3.4 - 5.0 G/DL 10/29/2019 10:31 AM CDT [facility] AST 17 15 - 37 U/L 10/29/2019 10:31 AM CDT [facility] ALT 22 14 - 55 U/L 10/29/2019 10:31 AM T [facility] ALKALINE PHOSPHATASE S/P/B 52 50 - 136 U/L 10/29/2019 10:31 AM CDT [facility] ANION GAP 9.3 5 - 15 MMOL/L 10/29/2019 10:31 AM T [facility] BUN CREATININE RATIO 11.7 6 - 26 10/29/2019 10:31 AM T [facility] A/G RATIO 1.0 1.0 - 2.0 RATIO 10/29/2019 10:31 AM T [facility] EGFR NON-AFR. AMER. 73(L) >90 ML/MIN/1.7 3 M2 10/29/2019 10:31 AM T [facility] EGFR AFR. AMER. 85(L) >90 ML/MIN/1.7 3 M2 10/29/2019 10:31 AM T [facility] Comment: NOTE: eGFR is not calculated for patients <18 years of age. This is an estimated GFR (CKD EPI) and should not be used for calculating drug doses. 10/29/2019 9:42 AM CDT Sahil Flores MD LABORATORY Final Result [facility] [address] [place] [address], [place] [phone] * (ABNORMAL) CBC W/DIFF AUTOMATED (10/29/2019 9:42 AM CDT) WBC 4.5 4.4 - 11.0 x10'3/uL 10/29/2019 9:55 AM CDT [facility] RBC 4.64 4.50 - 5.10 x10'6/uL 10/29/2019 9:55 AM CDT [facility] HGB 14.5 12.3 - 15.3 G/DL 10/29/2019 9:55 AM CDT [facility] HCT 43.2 35.9 - 44.6 % 10/29/2019 9:55 AM CDT [facility] MCV 93.1 80.0 - 96.0 FL 10/29/2019 9:55 AM CDT [facility] MCH 31.3(H) 25.3 - 30.9 PG 10/29/2019 9:55 AM CDT [facility] MCHC 33.6 31.0 - 34.1 G/DL 10/29/2019 9:55 AM CDT [facility] RDW 12.6 12.4 - 15.1 % 10/29/2019 9:55 AM T [facility] PLT 276 151 - 353 x10'3/uL 10/29/2019 9:55 AM T [facility] MPV 9.8 9.6 - 12.0 FL 10/29/2019 9:55 AM T [facility] RBC MORPHOLOGY NORMAL 10/29/2019 9:55 AM T [facility] PLT MORPH. NORMAL 10/29/2019 9:55 AM T [facility] WBC MORPHOLOGY NORMAL 10/29/2019 9:55 AM T [facility] LYMPHOCYTES % 29.4 15.8 - 45.0 % 10/29/2019 9:55 AM T [facility] NEUTROPHILS % 62.0 42.1 - 71.9 % 10/29/2019 9:55 AM CDT [facility] MONOCYTES % 4.0(L) 5.7 - 12.5 % 10/29/2019 9:55 AM CDT [facility] EOSINOPHILS 2.6 0.0 - 5.6 % 10/29/2019 9:55 AM CDT [facility] BASOPHILS 1.8(H) 0.0 - 1.3 % 10/29/2019 9:55 AM CDT [facility] ABS. NEUTROPHILS TOTAL 2.81 1.40 - 6.00 x10'3/uL 10/29/2019 9:55 AM CDT [facility] IMMATURE GRANS % 0.2 0.0 - 0.5 % 10/29/2019 9:55 AM CDT [facility] ABS. LYMPHOCYTES 1.33 0.80 - 4.70 x10'3/uL 10/29/2019 9:55 AM CDT [facility] 10/29/2019 9:42 AM CDT us Sahil Flores MD LABORATORY Final Result [facility] [address] [place] [address], documented in this encounter Visit Diagnoses Diagnosis Stomach ache Dyspepsia and other specified disorders of function of stomach Diarrhea of presumed infectious origin documented in this encounter Care Teams Habitat Management Coordinator Relationship Specialty Start Date End Date Sahil Galo MD [address] [place] [id number] PCP - General 10/25/15 03/05/21 documented as of this encounter
--- OUTSIDE RECORDS SUMMARY | 2024-08-16 03:19 | XMS_ITS | Encounter Summary ---
Author Organization [facility] Address [address] [place] [address]. [place], [place] [address] [place] [address] Care Team Providers Care Ecologist Technician Name Role Phone Sahil Galo MD Primary Care Provider [phone] Encounter Details Date Type Department Care Team (Late st Contact Info) Description 12/25/2020 Orders Only [facility] [address] [place] [address] Cari Martinez, [facility] [address] [place] [address] Social History Tobacco Use Types [...] encounter Results * (ABNORMAL) DRUG SCREEN RAPID (12/25/2020 2:20 PM CDT) AMPHETAMINE (U) POSITIVE(A) NEGATIVE 12/26/19 3:54 PM CDT [facility] (B) [facility] BARBITURATES SCREEN (U) NEGATIVE NEGATIVE 12/25/2020 3:54 PM CDT [facility] (B) [facility] BENZODIAZEPINES SCREEN (U) NEGATIVE NEGATIVE 12/25/2020 3:54 PM CDT [facility] BUPRENORPHINE SCREEN (U) NEGATIVE NEGATIVE 12/25/2020 3:54 PM CDT [facility] COCAINE METABOLITES (U) NEGATIVE NEGATIVE 12/25/2020 3:54 PM CDT [facility] METHAMPHETAMINE (U) NEGATIVE NEGATIVE 12/25/2020 3:54 PM CDT [facility] METHADONE (U) NEGATIVE NEGATIVE 12/25/2020 3:54 PM CDT [facility] OPIATE SCREEN (U) NEGATIVE NEGATIVE 021 3:54 PM CDT [facility] OXYCODONE SCREEN (U) NEGATIVE NEGATIVE 12/25/2020 3:54 PM CDT [facility] PHENCYCLIDINE PCP (U) NEGATIVE NEGATIVE 12/25/2020 3:54 PM CDT [facility] PROPOXYPHENE SCREEN (U) NEGATIVE NEGATIVE 12/25/2020 3:54 PM CDT [facility] CANNABINOIDS SCREEN (U) NEGATIVE NEGATIVE 12/25/2020 3:54 PM CDT [facility] TRICYCLIC ANTIDEPRESSANT SCREEN (U) NEGATIVE NEGATIVE 12/25/2020 3:54 PM CDT [facility] Comment: NOTE: RESULTS OF [...] Urine specimen (specimen) URINE SPECIMEN / Unknown 12/25/2020 2:20 PM CDT us Cari Martinez CNM URINE ORDERABLES Final Resul t [facility] [address] [place] [address], documented in this encounter Visit Diagnoses Diagnosis Unspecified screening (HHS/HCC)- Primary Unspecified screening documented in this encounter Care Teams Ecologist Technician Relationship Specialty Start Date End Date Sahil Galo MD [address] [place] [id number] PCP - General 10/25/15 03/05/21 documented as of this encounter
--- OUTSIDE RECORDS SUMMARY | 2024-08-16 03:19 | XMS_ITS | Encounter Summary ---
Author Organization [facility] Address [address] [place] [address]. [place], [place] [address] [place] [address] Care Team Providers Care Accounts Payable Representative Name Role Phone Sahil Flores MD Primary Care Provider [phone] Encounter Details Date Type Department Care Team (Latest Contact Info) Description 03/12/2021 12:57 PM CDT - 03/12/2021 12:59 PM CDT Hospital Encounter [facility] [address] [place] [address] Cari Martinez, [facility] [address] [place] [address] Discharge Disposition: Home or Self [...] 03/06/2021 04/12/2021 documented as of this encounter Plan of Treatment Not on file documented as of this encounter Procedures Procedure Name Priority Date/Time Associated Diagnosis Comments GLUCOSE 1 HR PP Routine 03/12/2021 2:06 PM CDT Unspecified screening (HHS/HCC) HIV - RAPID Routine 03/12/2021 2:06 PM CDT Unspecified screening (HHS/HCC) SYPHILIS/RPR/VDRL; QUAL Routine 03/12/2021 2:06 PM CDT Unspecified screening (HHS/HCC) CBC W/DIFF AUTOMATED Routine 03/12/2021 2:06 PM CDT Unspecified screening (HHS/HCC) DRUG SCREEN RAPID Routine 03/12/2021 1:3 0 PM CDT Unspecified screening (HHS/HCC) RHOGAM ANTEPARTUM Routine 03/12/2021 1:0 6 PM CDT Unspecified screening (HHS/HCC) documented in this encounter Results * HIV - RAPID (03/12/2021 2:06 PM CDT) HIV RAPID NON-REACTIV E NON-REACTI VE 03/12/2021 2:40 PM CDT [facility] 03/12/2021 2:06 PM CDT Cari Martinez CNM LABORATORY Final Result [facility] [address] [place] [address], [place] [phone] * SYPHILIS/RPR/VDRL; QUAL (03/12/2021 2:06 PM CDT) RPR REPORT 03/16/2021 3:50 PM CDT Seer MIRIAN AVINA Comment: RPR(Monitor) w/Refl Titer ??Non-Reactive ? Reference range: ??Non-Reactive Test Performed by Aliza Fonseca, [employer] [facility], [address] [place], [place] Campbell Elena M.D., Ph.D., Director of Laboratories , [place] [id number] 03/12/2021 2:06 PM CDT Cari Martinez [facility]ORATORY Final Result [employer] [address] [place], [place] , * (ABNORMAL) CBC W/DIFF AUTOMATED (03/12/2021 2:06 PM CDT) WBC 10.0 4.4 - 11.0 x10'3/uL 03/12/2021 2:22 PM CDT [facility] RBC 4.00(L) 4.50 - 5.10 x10'6/uL 03/12/2021 2:22 PM CDT [facility] HGB 13.2 12.3 - 15.3 G/DL 03/12/2021 2:22 PM CDT [facility] HCT 39.4 35.9 - 44.6 % 03/12/2021 2:22 PM CDT [facility] MCV 98.5(H) 80.0 - 96.0 FL 03/12/2021 2:22 PM CDT [facility] MCH 33.0(H) 25.3 - 30.9 PG 03/12/2021 2:22 PM CDT [facility] MCHC 33.5 31.0 - 34.1 G/DL 03/12/2021 2:22 [facility] RDW 13.1 12.4 - 15.1 % 03/12/2021 2:22 PM T [facility] PLT 205 151 - 353 x10'3/uL 03/12/2021 2:22 PM [facility] MPV 9.8 9.6 - 12.0 FL 03/12/2021 2:22 PM T [facility] RBC MORPHOLOGY NORMAL 03/12/2021 2:22 PM [facility] PLT MORPH. NORMAL 03/12/2021 2:22 PM T [facility] WBC MORPHOLOGY NORMAL 03/12/2021 2:22 PM [facility] LYMPHOCYTES % 10.2(L) 15.8 - 45.0 % 03/12/2021 2:22 PM T [facility] NEUTROPHILS % 82.3(H) 42.1 - 71.9 % 03/12/2021 2:22 PM T [facility] MONOCYTES % 5.4(L) 5.7 - 12.5 % 03/12/2021 2:22 PM [facility] EOSINOPHILS 0.7 0.0 - 5.6 % 03/12/2021 2:22 PM [facility] BASOPHILS 0.6 0.0 - 1.3 % 03/12/2021 2:22 PM [facility] ABS. NEUTROPHILS TOTAL 8.24(H) 1.40 - 6.00 x10'3/uL 03/12/2021 2:22 PM [facility] IMMATURE GRANS % 0.8(H) 0.0 - 0.5 % 03/12/2021 2:22 PM [facility] ABS. LYMPHOCYTES 1.02 0.80 - 4.70 x10'3/uL 03/12/2021 2:22 PM CDT [facility] 03/12/2021 2:06 PM CDT Cari Jonathan Michelle [facility]ORATORY Final Result Performing Organization Address [facility]/ZIP Co de Phone Number [facility] [address] [place] [address], [place] [phone] * GLUCOSE 1 HR PP (03/12/2021 2:06 PM CDT) GLUCOSE 1 HOUR POST DOSE 84 70 - 130 MG/DL 03/12/2021 2:33 PM CDT [facility] 03/12/2021 2:06 PM CDT Cari Martinez [facility] Final Result Performing Organization Address [facility] de Phone Number [facility] [address] [place] [address], [place] [phone] * DRUG SCREEN RAPID (03/12/2021 1:30 PM CDT) AMPHETAMINE (U) NONE DETECTED NONE DETECTED 03/12/2021 1:47 PM CDT [facility] BARBITURATES SCREEN (U) NONE DETECTED NONE DETECTED 03/12/2021 1:47 PM CDT [facility] BENZODIAZEPINES SCREEN (U) NONE DETECTED NONE DETECTED 03/12/2021 1:47 PM CDT [facility] BUPRENORPHINE SCREEN (U) NONE DETECTED NONE DETECTED 03/12/2021 1:47 PM CDT [facility] COCAINE METABOLITES (U) NONE DETECTED NONE DETECTED 03/12/2021 1:47 PM CDT [facility] METHAMPHETAMINE (U) NONE DETECTED NONE DETECTED 03/12/2021 1:47 PM CDT [facility] METHADONE (U) NONE DETECTED NONE DETECTED 03/12/2021 1:47 PM CDT [facility] OPIATE SCREEN (U) NONE DETECTED NONE DETECTED 03/12/2021 1:47 PM CDT [facility] OXYCODONE SCREEN (U) NONE DETECTED NONE DETECTED 03/12/2021 1:47 PM CDT [facility] PHENCYCLIDINE PCP (U) NONE DETECTED NONE DETECTED 03/12/2021 1:47 PM CDT [facility] PROPOXYPHENE SCREEN (U) NONE DETECTED NONE DETECTED 03/12/2021 1:47 PM CDT [facility] CANNABINOIDS SCREEN (U) NONE DETECTED NONE DETECTED 03/12/2021 1:47 PM CDT [facility] TRICYCLIC ANTIDEPRESSANT SCREEN (U) NONE DETECTED NONE DETECTED 03/12/2021 1:47 PM CDT [facility] Comment: NOTE: RESULTS OF [...] U PH 6.0 03/12/2021 1:48 PM CDT [facility] Urine specimen (specimen) URINE SPECIMEN / Unknown 03/12/2021 1:30 PM CDT Cari Martinez CNM URINE ORDERABLES Final Resul t Performing Organization Address [facility] Co de Phone Number [facility] [address] [place] [address], [place] [phone] * RHOGAM ANTEPARTUM (03/12/2021 1:06 PM CDT) UNITS ORDERED 1 03/12/2021 1:03 PM CDT [facility] ABO/RH O NEGATIVE 03/12/2021 1:54 PM CDT [facility] ANTIBODY SCREEN NEGATIVE 03/12/2021 1:54 PM CDT [facility] 03/12/2021 1:06 PM CDT us Cari Martinez CNM BLOOD BANK PRODUCT ORDERABLE S Final Result Performing Organization Address City/[facility] Co de Phone Number [facility] [address] [place] [address], [place] [phone] documented in this encounter Visit Diagnoses Diagnosis Unspecified screening (HHS/HCC) Unspecified screening documented in this encounter Care Teams Accounts Payable Representative Relationship Specialty Start Date End Date Sahil Flores MD [address] [place] [address] PCP - General FAMILY MEDICINE SPORTS MEDICINE 03/06/21 documented as of this encounter
--- OUTSIDE RECORDS SUMMARY | 2024-08-16 03:19 | XMS_ITS | Encounter Summary ---
Author Organization [facility] Address [facility]. [place], [place] [address] [place] [address] Care Team Providers Care Options Trader Name Role Phone Sahil Galo MD Primary Care Provider [phone] Sahil Galo MD Primary Care Provider [phone] Sahil Galo MD Primary Care Provider + [phone] Encounter Details Date Type Department Care Team (Late st Contact Info) Description 10/09/2014 Emergency [facility] [place] [address] Justyna Reynolds MD [address] [place] [address] [id number] Social History Tobacco Use Types Packs/Day Years Used Date Smoking Tobacco: Never Assessed Comments Unknown Sex and Gender Information Value Date Recorded Sex Assigned at Not on file Legal Sex Female 10:24 PM CDT Gender Identity Not on file Sexual Orientation Not on file documented as of this encounter Plan of Treatment Not on file documented as of this encounter Visit Diagnoses Diagnosis Herpes simplex Herpes simplex without mention of complication documented in this encounter Care Teams Options Trader Relationship Specialty Start Date End Date Sahil Galo MD [address] [place] [address] PCP - General 10/25/15 03/05/21 Sahil Galo MD [address] [place] [address] PCP - General 04/12/15 10/24/15 Sahil Galo MD [address] [place] [address] PCP - General 10/09/14 04/11/15 documented as of this encounter
--- OUTSIDE RECORDS SUMMARY | 2024-08-16 03:19 | XMS_ITS | Encounter Summary ---
Author Organization [facility] Address [facility] 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[facility]) Procedures RHO D IMMUNE GLOBULIN INJ,1 DOSE PK Walk in - for T-dap and Rhogam IM injection today (for antepartum) [facility] [address] [place] [address] Phone: tel: Referral ID Status Reason Start Date Expiration Date V isits Requested Visits Authorized [id number] Closed Specialty Services 03/12/2021 04/12/2022 1 1 Encounter Details Date Type Department Care Team (Latest Contact Info) Description 03/12/2021 1:15 PM CDT - 03/12/2021 3:15 PM CDT Hospital Encounter [facility] [address] [place] [address] Cari Martinez, [facility] [address] [place] [address] Discharge Disposition: Home or Self [...] Sign Reading Time Taken Comments Blood Pressure 112/59 03/12/2021 2:42 PM CDT Pulse 76 03/12/2021 3:15 PM CDT Temperature 36.5 ??C (97.7 ??F) 03/12/2021 3:15 PM CD T Respiratory Rate 18 03/12/2021 3:15 PM CDT Oxygen Saturation 100% 03/12/2021 2:42 PM CDT Inhaled Oxygen Concentration - - Weight - - Height - - Body Mass Index - - documented in this encounter Medications at Time of Discharge sodium chloride (OCEAN NASAL SPRAY) 0.65 % nasal spray 1 spray by Nasal route as needed for Dryness. 15 mL 03/06/2021 04/12/2021 documented as of this encounter Progress Notes * Radha Drew RN - 03/12/2021 3:23 PM CDT PT here for orders per [facility] request - spk to Angelia/ TERI at [facility]'s office re: pt arrival earlier thanrequested. Per orders - noted after blood work draw, pt was to wait until 03/22/21 when 28 weeks gestational. Pt currently at 26.5wk. Per pharmacy, ok to get the Rhogam since blood work drawn. Pt tolerated w/ sore arm at injection site only, educational information provided to pt, Rhogam administration record faxed to [facility]. Pt advised it is too early to obtain the T- dap injection, pt has her original order and may obtain at a local pharmacy . 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 Scheduled Medication Order 03/10/2021 03/11/2021 03/12/2021 rho D immune globulin (RHOPHYLAC) injection 300 mcg (COMPLETED) 300 mcg, Intramuscular, Once, 1 dose, On Fri03/12/21 at 1445, Prevention of rhesus (Rh) isoimmunization: Infuse at 2 mL per 5 to 15 seconds. Treatment of ITP: Infuse over 3 to 5 minutes. 1444 (Given - Provid er: Radha Drew RN) documented in this encounter Care Teams Insurance Adjuster Relationship Specialty Start Date End Date aShil Flores MD [address] [place] [address] PCP - General FAMILY MEDICINE SPORTS MEDICINE 03/06/21 documented as of this encounter
--- OUTSIDE RECORDS SUMMARY | 2024-08-16 03:19 | XMS_ITS | Encounter Summary ---
Author Organization [facility] Address [address] [place] [address]. [place], [place] [address] [place] [address] Care Team Providers Care Drill Sergeant Name Role Phone Sahil Flores MD Primary Care Provider [phone] Encounter Details Date Type Department Care Team (Late st Contact Info) Description 03/12/2021 Orders Only [facility] [address] [place] [address] Lupillo Brush, [address] [address] Social History Tobacco Use Types Packs/Day Years [...] on filedocumented in this encounter Care Teams Drill Sergeant Relationship Specialty [place] [address] [place] [address] PCP - General FAMILY MEDICINE SPORTS MEDICINE 03/06/21 documented as of this encounter
--- OUTSIDE RECORDS SUMMARY | 2024-08-16 03:19 | XMS_ITS | Encounter Summary ---
Author Organization [facility] Address [facility]. [place], [place] [address] [place] [address] Care Team Providers Care Cattle Dehorner Name Role Phone Sahil Galo MD Primary Care Provider [phone] Encounter Details Date Type Department Care Team (Late st Contact Info) Description 06/05/2018 Abstract [facility] Emergency Room [address] [place] [address] [place] [address] [facility] [address] [place] [address] Social History Tobacco Use Types Packs/Day Years [...] Associated Diagnosis Comments COMPREHENSIVE METABOLIC PANEL STAT 06/05/2018 3:08 PM CDT CBC W/DIFF AUTOMATED STAT 06/05/2018 3:08 PM CDT TEST URINE STAT 06/05/2018 2:58 PM CDT documented in this encounter Results * (ABNORMAL) COMPREHENSIVE METABOLIC PANEL (06/05/2018 3:08 PM CDT) [facility] GLUCOSE 98 70 - 99 MG/DL 06/05/2018 3:27 PM [facility] BUN 9 7 - 18 MG/DL 06/05/2018 3:27 PM [facility] CREATININE S/P/B 0.81 0.55 - 1.02 MG/DL 06/05/2018 3:27 PM [facility] SODIUM S/P/B 139 136 - 145 MMOL/L 06/05/2018 3:27 PM [facility] POTASSIUM S/P/B 3.7 3.5 - 5.1 MMOL/L 06/05/2018 3:27 PM [facility] CHLORIDE S/P/B 102 100 - 108 MMOL/L 06/05/2018 3:27 PM [facility] CO2 28.4 21 - 32 MMOL/L 06/05/2018 3:27 PM [facility] CALCIUM S/P/B 8.9 8.5 - 10.1 MG/DL 06/05/2018 3:27 PM [facility] BILIRUBIN TOTAL S/P/B 0.3 0.2 - 1.2 MG/DL 06/05/2018 3:27 PM [facility] TOTAL PROTEIN S/P/B 7.3 6.4 - 8.2 G/DL 06/05/2018 3:27 PM [facility] ALBUMIN S/P/B 3.7 3.4 - 5.0 G/DL 06/05/2018 3:27 PM [facility] AST 18 15 - 37 U/L 06/05/2018 3:27 PM [facility] ALT 27 14 - 55 U/L 06/05/2018 3:27 PM [facility] ALKALINE PHOSPHATASE S/P/B 46(L) 50 - 136 U/L 06/05/2018 3:27 PM CDT [facility] ANION GAP 12.3 8 - 20 MMOL/L 06/05/2018 3:27 PM CDT [facility] BUN CREATININE RATIO 11.1 6 - 26 06/05/2018 3:27 PM CDT [facility] A/G RATIO 1.0 1.0 - 2.0 RATIO 06/05/2018 3:27 PM CDT [facility] EGFR NON-AFR. AMER. >90 >90 ML/MIN/1.7 3 M2 06/05/2018 3:27 PM CDT [facility] EGFR AFR. AMER. >90 >90 ML/MIN/1.7 3 M2 06/05/2018 3:27 PM T [facility] Comment: NOTE: eGFR is not calculated for patients <18 years of age. This is an estimated GFR (CKD EPI) and should not be used for calculating drug doses. 06/05/2018 3:08 PM CDT 06/05/2018 3:14 PM CDT us Generic Conversion Md [facility] Final R esult [facility] [address] [place] [address], * (ABNORMAL) CBC W/DIFF AUTOMATED (06/05/2018 3:08 PM CDT) WBC 6.9 4.4 - 11.0 x10'3/uL 06/05/2018 3:16 PM CDT [facility] RBC 4.72 4.50 - 5.10 x10'6/uL 06/05/2018 3:16 PM CDT [facility] HGB 14.6 12.3 - 15.3 G/DL 06/05/2018 3:16 PM [facility] HCT 43.2 35.9 - 44.6 % 06/05/2018 3:16 PM T [facility] MCV 91.5 80.0 - 96.0 FL 06/05/2018 3:16 PM [facility] MCH 30.9 25.3 - 30.9 PG 06/05/2018 3:16 PM [facility] MCHC 33.8 31.0 - 34.1 G/DL 06/05/2018 3:16 PM [facility] RDW 12.4 12.4 - 15.1 % 06/05/2018 3:16 PM [facility] PLT 310 151 - 353 x10'3/uL 06/05/2018 3:16 PM [facility] MPV 9.9 9.6 - 12.0 FL 06/05/2018 3:16 PM [facility] RBC MORPHOLOGY NORMAL 06/05/2018 3:16 PM [facility] PLT MORPH. NORMAL 06/05/2018 3:16 PM [facility] WBC MORPHOLOGY NORMAL 06/05/2018 3:16 PM [facility] LYMPHOCYTES % 18.7 15.8 - 45.0 % 06/05/2018 3:16 PM [facility] NEUTROPHILS % 74.6(H) 42.1 - 71.9 % 06/05/2018 3:16 PM [facility] MONOCYTES % 4.6(L) 5.7 - 12.5 % 06/05/2018 3:16 PM [facility] EOSINOPHILS 1.2 0.0 - 5.6 % 06/05/2018 3:16 PM [facility] BASOPHILS 0.6 0.0 - 1.3 % 06/05/2018 3:16 PM CDT [facility] ABS. NEUTROPHILS TOTAL 5.14 1.40 - 6.00 x10'3/uL 06/05/2018 3:16 PM CDT [facility] IMMATURE GRANS % 0.3 0.0 - 0.5 % 06/05/2018 3:16 PM CDT [facility] ABS. LYMPHOCYTES 1.29 0.80 - 4.70 x10'3/uL 06/05/2018 3:16 PM CDT [facility] 06/05/2018 3:08 PM CDT 06/05/2018 3:14 PM CDT us Generic Conversion Md [facility] Final R esult Performing Organization Address City/[facility]/ZIP Co de Phone Number [facility] [address] [place] [address], [place] [phone] * TEST URINE (06/05/2018 2:58 PM CDT) SPECIFIC GRAVITY (U) 1.010 06/05/2018 3:06 PM CDT [facility] PREG TEST NEGATIVE NEGATIVE 06/05/2018 3:06 PM CDT [facility] 06/05/2018 2:58 PM CDT 06/05/2018 2:59 PM CDT us Generic Conversion Md RODRIGUEZ URINE ORDERABLES Final Result Performing Organization Address City/[facility]/ZIP Co de Phone Number [facility] [address] [place] [address], [place] [phone] documented in this encounter Visit Diagnoses Diagnosis Shortness of breath documented in this encounter Care Teams Cattle Dehorner Relationship Specialty Start Date End Date Sahil Galo MD [address] [place] [address] PCP - General 10/25/15 03/05/21 documented as of this encounter
--- OUTSIDE RECORDS SUMMARY | 2024-08-16 03:19 | XMS_ITS | Encounter Summary ---
Author Organization [facility] Address [address] [place] [address]. [place], [place] [address] [place] [address] Care Team Providers Care Tape Cutter Name Role Phone Sahil Galo MD Primary Care Provider [phone] Encounter Details Date Type Department Care Team (Latest Contact Info) Description 12/25/2020 3:07 PM CDT - 12/25/2020 11:59 PM CDT Hospital Encounter [facility] [address] [place] [address] [facility] [address] [place] [address] Discharge Disposition: Home or Self [...] Procedure Name Priority Date/Time Associated Diagnosis Comments AMPHETAMINE BY GCMS (QST RFX) Routine 12/25/2020 2:20 PM CDT DRUG SCREEN RAPID Routine 12/25/2020 2:2 0 PM CDT Unspecified screening (HHS/HCC) documented in this encounter Results * AMPHETAMINE BY GCMS (QST RFX) (12/25/2020 2:20 PM CDT) AMPHETAMINE (U) 16,000 ng/mL 8:30 AM CDT [facility] METHAMPHETAMINE (U) negative 12/29 8:30 AM CDT [facility] RO PUTNAMY 3 4-METHYLENEDIOXYAMP HETAMINE (U) negative 12/29/2020 6:23 AM CDT [facility] AicentEDITH LLY 3 8-UZOJLNIMK-[id number]-M ETHAMPHETAMINE (U) negative 12/29/2020 6:23 AM CDT [facility] PUTNAMY 3 9-TGYGWAWNU-KXDXHOA HYLAMPHETAMINE (U) negative 12/29/2020 6:23 AM CDT [facility] Comment: Reporting limit 200 ng/mL Test Performed by [employer] Aliza, [employer] [facility], [address] [place] [address] Campbell Elena M.D., Ph.D., Director of Laboratories , [place] [id number] 12/25/2020 2:20 PM CDT Cari Martinez CNM URINE ORDERABLES Final Resul t [facility] [address] , [place] [phone] * (ABNORMAL) DRUG SCREEN RAPID (12/25/2020 2:20 PM CDT) AMPHETAMINE (U) POSITIVE(A) NEGATIVE 12/26/19 3:54 PM CDT [facility] BARBITURATES SCREEN (U) NEGATIVE NEGATIVE 12/25/2020 3:54 PM CDT [facility] BENZODIAZEPINES SCREEN (U) NEGATIVE NEGATIVE 12/25/2020 3:54 PM CDT [facility] BUPRENORPHINE SCREEN (U) NEGATIVE NEGATIVE 12/25/2020 3:54 PM CDT [facility] COCAINE METABOLITES (U) NEGATIVE NEGATIVE 12/25/2020 3:54 PM CDT [facility] METHAMPHETAMINE (U) NEGATIVE NEGATIVE 12/25/2020 3:54 PM CDT [facility] METHADONE (U) NEGATIVE NEGATIVE 12/25/2020 3:54 PM CDT [facility] OPIATE SCREEN (U) NEGATIVE NEGATIVE 021 3:54 PM CDT [facility] OXYCODONE SCREEN (U) NEGATIVE NEGATIVE 12/25/2020 3:54 PM CDT [facility] PHENCYCLIDINE PCP (U) NEGATIVE NEGATIVE 12/25/2020 3:54 PM CDT [facility] PROPOXYPHENE SCREEN (U) NEGATIVE NEGATIVE 12/25/2020 3:54 PM CDT [facility] CANNABINOIDS SCREEN (U) NEGATIVE NEGATIVE 12/25/2020 3:54 PM CDT [facility] TRICYCLIC ANTIDEPRESSANT SCREEN (U) NEGATIVE NEGATIVE 12/25/2020 3:54 PM CDT [facility] Comment: NOTE: RESULTS OF THIS [...] 12/25/2020 2:20 PM CDT us Cari Martinez CN URINE ORDERABLES Final Resul t Performing Organization Address City/State/[facility] Co de Phone Number [facility] [address] [place] [address], documented in this encounter Visit Diagnoses Diagnosis Unspecified screening (HHS/HCC) Unspecified screening documented in this encounter Care Teams Tape Cutter Relationship Specialty Start Date End Date Sahil Galo MD [facility] [place] [address] PCP - General 10/25/15 03/05/21 documented as of this encounter
--- OUTSIDE RECORDS SUMMARY | 2024-08-16 03:19 | XMS_ITS | Encounter Summary ---
Author Organization [facility] Address [facility]. [place], [place] [address] [place] [address] Care Team Providers Care Strawhat Sizer Name Role Phone Sahil Galo MD Primary Care Provider + [phone] Sahil Galo MD Primary Care Provider + [phone] Sahil Galo MD Primary Care Provider + [phone] Cordell Ge MD Primary Care Provider Unavailable Cordell Ge MD Primary Care Provider Unavailable Encounter Details Date Type Department Care Team (Late st Contact Info) Description 07/30/2010 Abstract [facility] [place], [place] [id number] Md Generic ConversionMD Social History Tobacco Use Types Packs/Day Years Used Date Smoking Tobacco: Never Assessed Comments Unknown Sex and Gender Information Value Date Recorded Sex Assigned at Not on file Legal Sex Female 10:24 PM CDT Gender Identity Not on file Sexual Orientation Not on file documented as of this encounter Plan of Treatment Not on file documented as of this encounter Visit Diagnoses Diagnosis Urinary tract infection Urinary tract infection, site not specified documented in this encounter Care Teams Strawhat Sizer Relationship Specialty Start Date End Date Sahil Galo MD [address] [place] [address] PCP - General 10/25/15 03/05/21 Sahil Galo MD [address] [place] [address] PCP - General 04/12/15 10/24/15 Sahil Galo MD [address] [place] [address] PCP - General 10/09/14 04/11/15 , Generic Conversion, PCP - General 05/10/13 5 , Generic Conversion, PCP - General 07/30/10 documented as of this encounter
--- OUTSIDE RECORDS SUMMARY | 2024-08-16 03:19 | XMS_ITS | Encounter Summary ---
Author Organization [facility] Address [facility]. [place], [place] [address] [place] [address] Care Team Providers Care Sales Account Manager Name Role Phone Saihl Galo MD Primary Care Provider + [phone] Sahil Galo MD Primary Care Provider + [phone] Sahil Galo MD Primary Care Provider + [phone] Cordell Ge MD Primary Care Provider Unavailable Encounter Details Date Type Department Care Team (Late st Contact Info) Description 05/10/2013 Abstract [facility] One Day [place], [place] [address] Ricardo Carbajal MD [address] [place] [address] [id number] Social History Tobacco Use Types Packs/Day Years Used Date Smoking Tobacco: Never Assessed Comments Unknown Sex and Gender Information Value Date Recorded Sex Assigned at Not on file Legal Sex Female 10:24 PM CDT Gender Identity Not on file Sexual Orientation Not on file documented as of this encounter Plan of Treatment Not on file documented as of this encounter Visit Diagnoses Diagnosis Chronic cholecystitis documented in this encounter Care Teams Sales Account Manager Relationship Specialty Start Date End Date Sahil Galo MD [address] [place] [address] PCP - General 10/25/15 03/05/21 Sahil Galo MD [address] [place] [address] PCP - General 04/12/15 10/24/15 Sahil Galo MD [address] [place] [address] PCP - General 10/09/14 04/11/15 Cordell Ge MD PCP - General 05/10/13 5 documented as of this encounter
--- OUTSIDE RECORDS SUMMARY | 2024-08-16 03:19 | XMS_ITS | Encounter Summary ---
Author Organization [facility] Address [facility] [place], [place] [address] [place] [address] Care Team Providers Care Validation Architect Name Role Phone Sahil Galo MD Primary Care Provider [phone] Sahil Galo MD Primary Care Provider + [phone] Encounter Details Date Type Department Care Team (Late st Contact Info) Description 04/12/2015 Emergency [facility] Emergency Room [place], [place] [address] Justyna [place] MD [address] [place] [address] [id number] Social History Tobacco Use Types Packs/Day Years Used Date Smoking Tobacco: Never Assessed Comments Unknown Sex and Gender Information Value Date Recorded Sex Assigned at Not on file Legal Sex Female 10:24 PM CDT Gender Identity Not on file Sexual Orientation Not on file documented as of this encounter Plan of Treatment Not on file documented as of this encounter Visit Diagnoses Diagnosis Abdominal pain Abdominal pain, unspecified site documented in this encounter Care Teams Validation Architect Relationship Specialty Start Date End Date Sahil Galo MD [address] [place] [address] PCP - General 10/25/15 03/05/21 Sahil Galo MD [facility] [place] [address] PCP - General 04/12/15 10/24/15 documented as of this encounter
--- OUTSIDE RECORDS SUMMARY | 2024-08-16 03:19 | XMS_ITS | Encounter Summary ---
Author Organization [facility] Address [address] [place] [address]. [place], [place] [address] [place] [address] Care Team Providers Care Tunnel Worker Name Role Phone Sahil Galo MD Primary Care Provider [phone] Encounter Details Date Type Department Care Team (Late st Contact Info) Description 06/05/2018 Orders Only [facility] [address] [place] [address] [place] [address] [place] [address] [address] [place] [address] Social History Tobacco Use Types Packs/Day Years [...] Procedure Name Priority Date/Time Associated Diagnosis Comments CARDIOLOGY GENERIC 06/05/2018 2: 49 PM CDT documented in this encounter Results * CARDIOLOGY GENERIC (06/05/2018 2:49 PM CDT) 06/05/2018 2:49 PM CDT Narrative [facility] RADI[facility] - 06/05/2018 12:00 AM CDT ? SARA VANESSA Ordering MD: GIOVANNI VASQUEZ DO ?? Acct: [id number] ?? Admit/Service Date: 06/05/18 Discharge Date: 06/05/18 ?? : 1990 Pt Type: DEP ER ?? Sex: F Ord Site: [facility] ?Test Date: ?2018-06-05 ?? Pat Name: ? MARCEDIS VANESSA ?Department: CARD ?? 85 ? Room: ? Gender: ? F ?Popcorn Vendor: ? : ?1990 ? Requested By: GIOVANNI FERNANDEZ NOVONohemi ?? Order Number: [id number] ?Reading MD: ?? Josue Guerrero ?Measurements ?? Intervals ?[place] ? Rate: ? 68 ? P: ?-11 ?? CO: ? 141 ?QRS: ?16 ?? QRSD: ? 93 ? T: ?40 ?? QT: ? 355 ? QTc: ?379 ?Interpretive Statements ?? SINUS RHYTHM ?? No previous ECG available for comparison ? Procedure Note Josue Guerrero MD - 06/08/2018 SRAA VANESSA Ordering MD: GIOVANNI VASQUEZ DO Acct: [id number] Admit/Service Date: 06/05/18 Discharge Date: 06/05/18 : 1990 Pt Type: DEP ER Sex: F Ord Site: [facility] Test Date: 2018-06-05 Pat Name: SARA VANESSA Department: CARD 85 Room: Gender: F Popcorn Vendor: : 1990 Requested By: GIOVANNI RUBIO Order Number: [id number] Reading MD: Josue Guerrero Measurements Intervals [place] Rate: 68 P: -11 CO: 141 QRS: 16 QRSD: 93 T: 40 QT: 355 QTc: 379 Interpretive Statements SINUS RHYTHM No previous ECG available for comparison Giovanni [facility] Final Result [facility] documented in this encounter Visit Diagnoses Not on filedocumented in this encounter Care Teams Tunnel Worker Relationship Specialty Start Date End Date Sahil Galo MD [facility] [place] [address] PCP - General 10/25/15 03/05/21 documented as of this encounter
--- OUTSIDE RECORDS SUMMARY | 2024-08-16 03:19 | XMS_ITS | Encounter Summary ---
Author Organization [facility] Address [address] [place] [address]. [place], [place] [address] [place] [address] Care Team Providers Care Salesperson Women'S Dresses Name Role Phone Sahil Flores MD Primary Care Provider Reason for Referral * Injection (Routine) - Closed Specialty Diagnoses / Procedures Referred By Contarden t Referred To Contact INFUSION THERAPY Diagnoses Unspecified screening ([facility]) Antidepressant type abuse, continuous ([facility] Antepartum drug dependence ([facility]) Procedures RHO D IMMUNE GLOBULIN INJ,1 DOSE PK Walk in - for T-dap and Rhogam IM injection today (for antepartum) [facility] [address] [place] [address] Phone: tel: Referral ID Status Reason Start Date Expiration Date V isits Requested Visits Authorized [id number] Closed Specialty Services 03/12/2021 04/12/2022 1 1 Scheduling Instructions PT walk in for T-dap and Rhogam injection Encounter Details Date Type Department Care Team (Late st Contact Info) Description 03/12/2021 Therapy Plan [facility] [address] [place] [address] Cari Martinez CNM [address] [place] [address] Social History Tobacco Use Types [...] as of this encounter Plan of Treatment Scheduled Referrals Name Type Priority Associated Diagnoses Orde r Schedule Ambulatory referral to Infusion Therapy Referral Routine Unspecified screening ([facility]) Antidepressant type abuse, continuous ([facility]) Antepartum drug dependence ([facility] HHS/HCC) Ordered: 03/12/2021 documented as of this encounter Visit Diagnoses Diagnosis Antidepressant type abuse, continuous ([facility] HHS/HCC)- Primary Antidepressant type abuse, continuous Unspecified screening ([facility]) Unspecified screening 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
--- OUTSIDE RECORDS SUMMARY | 2024-08-16 03:19 | XMS_ITS | Encounter Summary ---
Author Organization [facility] Address [address] [place] [address]. [place], [place] [address] [place] [address] Care Team Providers Care Mounter Sousaphones Name Role Phone Sahil Galo MD Primary Care Provider [phone] Encounter Details Date Type Department Care Team (Latest Contact Info) Description 02/08/2021 Travel Social History Tobacco Use Types Packs/Day [...] have Coronavirus / COVID-19? No / Unsure 02/08/2021 8:38 AM CDT documented as of this encounter Plan of Treatment Not on file documented as of this encounter Visit Diagnoses Not on filedocumented in this encounter Care Teams Mounter Sousaphones Relationship Specialty Start Date End Date Sahil Galo MD [address] [place] [address] PCP - General 10/25/15 03/05/21 documented as of this encounter
--- OUTSIDE RECORDS SUMMARY | 2024-08-16 03:19 | XMS_ITS | Encounter Summary ---
Author Organization [facility] Address [address] [place] [address]. [place], [place] [address] [place] [address] Care Team Providers Care Brusher Machine Name Role Phone Sahil Galo MD Primary Care Provider [phone] Encounter Details Date Type Department Care Team (Latest Contact Info) Description 11/03/2020 9:37 AM CDT - 11/03/2020 11:59 PM CDT Hospital Encounter [facility] [address] [place] [address] [facility] [address] [place] [address] Discharge Disposition: Home or Self [...] Procedure Name Priority Date/Time Associated Diagnosis Comments SYPHILIS IGG AB Routine 11/03/2020 9:47 AM CDT Encounter for other specified screening (HHS/HCC) HIV 1 ANTIGEN(S), WITH HIV-1 AND HIV-2 ANTIBODIES Routine 11/03/2020 9:47 AM CDT Encounter for other specified screening ([facility]/HCC) RUBELLA IGG Routine 11/03/2020 9:47 AM CDT Encounter for other specified screening ([facility]/HCC) DRUG SCREEN RAPID Routine 11/03/2020 9:4 7 AM CDT Encounter for other specified screening ([facility]) HC URINALYSIS AUTO W/MICRO Routine 11/03/2020 9:47 AM CDT Encounter for other specified screening ([facility]) URINE BACTERIA CULTURE Routine 11/03/2020 9:47 AM CDT Encounter for other specified screening ([facility]) ANTIBODY SCREEN Routine 11/03/2020 9:47 AM CDT Encounter for other specified screening ([facility]) HEPATITIS B SURFACE AG, EIA Routine 11/03/2020 9:47 AM CDT Encounter for other specified screening ([facility]) HC BLOOD TYPING ABO Routine 11/03/2020 9 :47 AM CDT Encounter for other specified screening ([facility]) CBC W/DIFF AUTOMATED Routine 11/03/2020 9:47 AM CDT Encounter for other specified screening ([facility]) documented in this encounter Results * (ABNORMAL) DRUG SCREEN RAPID (11/03/2020 9:47 AM CDT) AMPHETAMINE (U) POSITIVE(A) NEGATIVE 11/04/19 11:22 AM CDT [facility] BARBITURATES SCREEN (U) NEGATIVE NEGATIVE 11/03/2020 11:22 AM CDT [facility] BENZODIAZEPINES SCREEN (U) NEGATIVE NEGATIVE 11/03/2020 11:22 AM CDT [facility] BUPRENORPHINE SCREEN (U) NEGATIVE NEGATIVE 11/03/2020 11:22 AM T [facility] COCAINE METABOLITES (U) NEGATIVE NEGATIVE 11/03/2020 11:22 AM [facility] METHAMPHETAMINE (U) NEGATIVE NEGATIVE 11/03/2020 11:22 AM T [facility] METHADONE (U) NEGATIVE NEGATIVE 11/03/2020 11:22 AM T [facility] OPIATE SCREEN (U) NEGATIVE NEGATIVE 021 11:22 AM T [facility] OXYCODONE SCREEN (U) NEGATIVE NEGATIVE 11/03/2020 11:22 AM [facility] PHENCYCLIDINE PCP (U) NEGATIVE NEGATIVE 11/03/2020 11:22 AM T [facility] PROPOXYPHENE SCREEN (U) NEGATIVE NEGATIVE 11/03/2020 11:22 AM T [facility] CANNABINOIDS SCREEN (U) NEGATIVE NEGATIVE 11/03/2020 11:22 AM [facility] TRICYCLIC ANTIDEPRESSANT SCREEN (U) NEGATIVE NEGATIVE 11/03/2020 11:22 AM [facility] Comment: NOTE: RESULTS OF THIS [...] Unknown 11/03/2020 9:47 AM CDT us Cari Martinez [facility] URINE ORDERABLES Final Resul t Performing Organization Address [facility] Co de Phone Number [facility] [address] [place] [address], [place] [phone] * ANTIBODY SCREEN (11/03/2020 9:47 AM CDT) ANTIBODY SCREEN NEGATIVE 11/03/2020 11:51 AM CDT [facility] 11/03/2020 9:47 AM CDT us Cari Martinez [facility] BLOOD BANK TEST ORDERABLES F inal Result Performing Organization Address [facility] de Phone Number [facility] [address] [place] [address], [place] [phone] * BLOOD TYPING, ABO AND RH (11/03/2020 9:47 AM CDT) ABO/RH O NEGATIVE 11/03/2020 11:50 AM CDT [facility] 11/03/2020 9:47 AM CDT Cari Castillo Michelle [facility] BLOOD BANK TEST ORDERABLES F inal Result Performing Organization Address [facility] Co de Phone Number [facility] [address] [place] [address], [place] [phone] * CULTURE URINE (11/03/2020 9:47 AM CDT) SPEC DESCRIPTION URINE CLEAN CATCH 11/03/2020 9:48 AM CDT [facility] SPECIAL REQUESTS NO SPECIAL REQUEST 11/03/2020 9:48 AM CDT [facility] CULTURE RESULT NO GROWTH 2 DAYS 11/05/2020 8:36 AM CDT [facility] URINE SPECIMEN OBTAINED BY CLEAN CATCH PROCEDURE / Unknown 11/03/2020 9:47 AM CDT 11/03/2020 10:00 AM CDT us Cari Martinez CNM MICROBIOLOGY - GENERAL ORDER ZAKI Final Result Performing Organization Address City/[facility]/ZIP Co de Phone Number [facility] [address] [place] [address], [place] [phone] [facility] [address] [place] [address], [place] [phone] * HIV 1 ANTIGEN(S), WITH HIV-1 AND HIV-2 ANTIBODIES (11/03/2020 9:47 AM CDT) Pathologist [facility] HIV 1/2 AB+ HIV1 P24 AG NON-REACTI VE NON-REACTI VE 11/03/2020 4:05 PM CDT [facility] 11/03/2020 9:47 AM CDT us Cari Maritnez CNM LABORATORY Final Result [facility] [address] [place] [address], [place] [phone] * (ABNORMAL) URINALYSIS (11/03/2020 9:47 AM CDT) COLOR (U) LIGHT YELLOW 11/03/2020 11:49 AM CDT [facility] TRANSPARENCY CLEAR 11/03/2020 11:49 AM T [facility] SPECIFIC GRAVITY (U) 1.005 1.002 - 1.030 11/03/2020 11:49 AM CDT [facility] U PH 7.0 4.5 - 8.0 11/03/2020 11:49 AM CDT [facility] LEUKOCYTES (U) NEGATIVE NEGATIVE 11/03/2020 11:49 AM CDT [facility] NITRITES NEGATIVE NEGATIVE 11/03/2020 11:49 AM T [facility] PROTEIN (U) NEGATIVE NEGATIVE 11/03/2020 11:49 AM T [facility] URINE GLUCOSE NEGATIVE NEGATIVE 11/03/2020 11:49 AM T [facility] KETONES MG/DL (U) NEGATIVE NEGATIVE 11/03/2020 11:49 AM T [facility] UROBILINOGEN NORMAL NORMAL EU/DL 11/03/2020 11:49 AM T [facility] BILIRUBIN (U) NEGATIVE NEGATIVE 11/03/2020 11:49 AM T [facility] BLOOD (U) 1+(A) NEGATIVE 11/03/2020 11:49 AM CDT [facility] WBC/HPF 0-5 /HPF 11/03/2020 11:49 AM CDT [facility] RBC/HPF 0-2 /HPF 11/03/2020 11:49 AM CDT [facility] EPI/HPF 0-5 /HPF 11/03/2020 11:49 AM CDT [facility] BACTERIA (U) TRACE /HPF 11/03/2020 11:49 AM CDT [facility] URINE SPECIMEN OBTAINED BY CLEAN CATCH PROCEDURE / Unknown 11/03/2020 9:47 AM CDT Cari CHRISTIANSON URINE ORDERABLES Final Resul t Performing Organization Address City/[facility]/ZIP Co de Phone Number [facility] [address] [place] [address], [place] [phone] * SYPHILIS IGG AB (11/03/2020 9:47 AM CDT) SYPHILIS IGG AB NON-REACTI VE NON-REACTI VE 11/07/2020 3:26 PM CDT [facility] 11/03/2020 9:47 AM CDT Cari Martinez [facility] LABORATORY Final Result Performing Organization Address City/[facility] Co de Phone Number [facility] [address] [place] [address], [place] [phone] * RUBELLA IGG (11/03/2020 9:47 AM CDT) RUBELLA IGG AB 112.00 11/03/2020 3:25 PM CDT [facility] Comment: IMMUNITY PRESENT RUBELLA IGG ANTIBODY [...] RUBELLA VIRUS. 11/03/2020 9:47 AM CDT Cari Ramirezehler [facility] LABORATORY Final Result [facility] [address] [place] [address], [place] [phone] * HEPATITIS B SURFACE AG, EIA (11/03/2020 9:47 AM CDT) Pathologist [facility] HEPATITIS B SURFACE AG NON-REACTI VE NON-REACTI VE 11/03/2020 3:06 PM CDT [facility] 11/03/2020 9:47 AM CDT Cari Jonathan RamirezMichelle [facility] LABORATORY Final Result Performing Organization Address City/[facility]/ZIP Co de Phone Number [facility] [address] [place] [address], [place] [phone] * (ABNORMAL) CBC W/DIFF AUTOMATED (11/03/2020 9:47 AM CDT) [facility] WBC 7.2 4.8 - 10.8 x10'3/uL 11/03/2020 10:51 AM CDT [facility] RBC 4.95 4.10 - 5.10 x10'6/uL 11/03/2020 10:51 AM CDT [facility] HGB 14.9 12.0 - 16.0 G/DL 11/03/2020 10:51 AM CDT [facility] HCT 44.3 36 - 46 % 11/03/2020 10:51 AM CDT [facility] MCV 89.5 80 - 100 FL 11/03/2020 10:51 AM CDT [facility] MCH 30.1 26.0 - 34.0 PG 11/03/2020 10:51 AM CDT [facility] MCHC 33.6 31.0 - 37.0 G/DL 11/03/2020 10:51 AM CDT [facility] RDW 13.1 11.5 - 14.5 % 11/03/2020 10:51 AM CDT [facility] PLT 300 150 - 350 x10'3/uL 11/03/2020 10:51 AM CDT [facility] CBC COMMENT AUTOMATED RBC MORPHOLOGY AND PLATELET EVALUATION NORMAL 11/03/2020 10:51 AM CDT [facility] NEUTROPHILS % 75.1(H) 50 - 70 % 11/03/2020 10:51 AM CDT [facility] LYMPHOCYTES % 18.0 18 - 42 % 11/03/2020 10:51 AM CDT [facility] MONOCYTES % 6.0 2.0 - 11.0 % 11/03/2020 10:51 AM CDT [facility] EOSINOPHILS 0.6(L) 1.0 - 3.0 % 11/03/2020 10:51 AM CDT [facility] BASOPHILS 0.3 0.0 - 1.0 % 11/03/2020 10:51 AM CDT [facility] ABS. NEUTROPHILS TOTAL 5.37 1.69 - 7.81 x10'3/uL 11/03/2020 10:51 AM T [facility] 11/03/2020 9:47 AM CDT Cari Martinez CNM LABORATORY Final Result [facility] [address] [place] [address], [place] [phone] documented in this encounter Visit Diagnoses Diagnosis Encounter for other specified screening (HHS/HCC) documented in this encounter Care Teams Brusher Machine Relationship Specialty Start Date End Date Sahil Galo MD [facility] [place] [address] PCP - General 10/25/15 03/05/21 documented as of this encounter
--- OUTSIDE RECORDS SUMMARY | 2024-08-16 03:19 | XMS_ITS | Encounter Summary ---
Author Organization [facility] Address [address] [place] [address]. [place], [place] [address] [place] [address] Care Team Providers Care Laboratory Immunologist Name Role Phone Sahil Galo MD Primary Care Provider [phone] Reason for Referral * Imaging (Emergency) - Closed Specialty Diagnoses / Procedures Referred By Contac t Referred To Contact RADIOLOGY Diagnoses Small bowel obstruction (CMS/HCC HHS/HCC) Procedures CT ABD+PEL WO CON Sahil Flores MD [address] [place] [address] Phone: tel: fax: Referral ID Status Reason Start Date Expiration Date Visits Re quested Visits Authorized [id number] Closed 10/29/2019 11/28/2020 1 1 Reason for Visit * Imaging (Emergency) - Closed Specialty Diagnoses / Procedures Referred By Contac t Referred To Contact RADIOLOGY Diagnoses Small bowel obstruction ([facility]/HCC HHS/HCC) Procedures CT ABD+PEL WO CON Sahil Flores MD [address] [place] [address] Phone: tel: fax: Referral ID Status Reason Start Date Expiration Date Visits Re quested Visits Authorized [id number] Closed 10/29/2019 11/28/2020 1 1 Encounter Details Date Type Department Care Team ([facility] st Contact Info) Description 10/29/2019 9:37 AM CDT - 10/29/2019 11:59 PM CDT [place] [address] [place] [address] Sahil Flores MD [address] [place] [address] Discharge Disposition: Home or Self Care (Routine [...] Procedure Name Priority Date/Time Associated Diagnosis Comments CT ABD+PEL WO CON STAT 10/29/2019 10: 26 AM CDT Small bowel obstruction (CMS/HCC HHS/HCC) documented in this encounter Results * CT ABD+PEL WO CON (10/29/2019 10:26 AM CDT) Anatomical Region Laterality Modality Abdomen Computed Tomogra phy 10/29/2019 10:4 0 AM CDT Impressions 10/29/2019 10:46 AM CDT IMPRESSION: Limited CT without intravenous or enteric contrast. Lung bases are clear. No pleural fluid. Cholecystectomy surgical clips. No renal or ureteral calculus. ??No evidence of hydronephrosis.. Pessary shaped structure present within the pelvis. Given the lack of intravenous contrast, no focal hepatic, renal, splenic, adrenal, pancreatic mass is identified. Hepatomegaly with hepatic fatty infiltration. Contrast density or appendicoliths are noted within a nondistended appendix. No evidence to suggest bowel obstruction. Few fluid-filled nondistended loops of small bowel with wall thickening are noted. These are nonspecific and may represent enteritis. Interpreted By: Declan Mosher, 10/29/2019 10:40 AM Narrative 10/29/2019 10:46 AM CDT IMAGING STUDIES: ??CT ABD+PEL WO CON ? DATE: ??10/29/2019 9:58 AM INDICATION: Epigastric, mid abdominal pain, nausea. Cholecystectomy. COMPARISON: ??No comparison. CONTRAST DOSE: ??No intravenous contrast. Radiation dose reduction technique was utilized. Procedure Note Declan Mosher MD - 10/29/2019 IMAGING STUDIES: CT ABD+PEL WO CON DATE: 10/29/2019 9:58 AM INDICATION: Epigastric, mid abdominal pain, nausea. Cholecystectomy. COMPARISON: No comparison. CONTRAST DOSE: No intravenous contrast. Radiation dose reduction technique was utilized. IMPRESSION: Limited CT without intravenous or enteric contrast. Lung bases are clear. No pleural fluid. Cholecystectomy surgical clips. No renal or ureteral calculus. Noevidence of hydronephrosis.. Pessary shaped structure present within the pelvis. Given the lack of intravenous contrast, no focal hepatic, renal,splenic, adrenal, pancreatic mass is identified. Hepatomegaly with hepatic fatty infiltration. Contrast density or appendicoliths are noted within a nondistended appendix. No evidence to suggest bowel obstruction. Few fluid-filled nondistended loops of small bowel with wall thickening are noted. Theseare nonspecific and may represent enteritis. Interpreted By: Declan Mosher, 10/29/2019 10:40 AM Sahil Flores MD CT Final Result documented in this encounter Visit Diagnoses Diagnosis Small bowel obstruction (CMS/HCC HHS/HCC) Unspecified intestinal obstruction documented in this encounter Care Teams Laboratory Immunologist Relationship Specialty Start Date End Date Sahil Galo MD [address] [place] [address] PCP - General 10/25/15 03/05/21 documented as of this encounter
--- OUTSIDE RECORDS SUMMARY | 2024-08-16 03:19 | XMS_ITS | Encounter Summary ---
Author Organization [facility] Address [address] [place] [address]. [place], [place] [address] [place] [address] Care Team Providers Care Plateman Name Role Phone Sahil Flores MD Primary Care Provider [phone] Encounter Details Date Type Department Care Team (Latest Contact Info) Description 03/12/2021 Travel Social History Tobacco Use Types Packs/Day [...] on filedocumented in this encounter Care Teams Plateman Relationship Specialty Start Date End Date Sahil Flores MD [facility] [place] [address] PCP - General FAMILY MEDICINE SPORTS MEDICINE 03/06/21 documented as of this encounter
--- OUTSIDE RECORDS SUMMARY | 2024-08-16 03:19 | XMS_ITS | Encounter Summary ---
Author Organization [facility] Address [address] [place] [address]. [place], [place] [address] [place] [address] Care Team Providers Care Grease Cup Filler Name Role Phone Sahil Galo MD Primary Care Provider [phone] Encounter Details Date Type Department Care Team (Latest Contact Info) Description 11/03/2020 Travel Social History Tobacco Use Types Packs/Day [...] on filedocumented in this encounter Care Teams Grease Cup Filler Relationship Specialty Start Date End Date Sahil Galo MD [address] [place] [address] PCP - General 10/25/15 03/05/21 documented as of this encounter
--- OUTSIDE RECORDS SUMMARY | 2024-08-16 03:19 | XMS_ITS | Encounter Summary ---
Author Organization [facility] Address [address] [place] [address]. [place], [place] [address] [place] [address] Care Team Providers Care Global Position System Technician Name Role Phone Sahil Flores MD Primary Care Provider [phone] Reason for Visit * Reason Comments leaking fluid Encounter Details Date Type Department Care Team (Latest Contact Info) Description 04/12/2021 10:47 AM CDT - 04/12/2021 2:10 PM CDT Hospital Encounter [facility] Labor & Delivery [address] [place], [place] [address] Neida Epps MD [address] [place], [place] [id number] (leaking fluid) Discharge Disposition: Home or Self Care (Routine [...] Sign Reading Time Taken Comments Blood Pressure 124/72 04/12/2021 1:39 PM CDT Pulse 89 04/12/2021 1:39 PM CDT Temperature 36.7 ??C (98 ??F) 04/12/2021 10:52 AM CDT Respiratory Rate - - Oxygen Saturation - - Inhaled Oxygen Concentration - - Weight - - Height - - Body Mass Index - - documented in this encounter Discharge Instructions * Discharge Instructions* Yenny Zuniga RN - 04/12/2021 2:00 PM CDT Discharge Instructions After NST Patient Information [facility] at [phone] or return to the [facility] if: * You experience decreased movement. * Your water breaks. Call your physician or the [facility] if: * You [...] your next scheduled clinic visit. Additional Instructions Given documented in this encounter Medications at Time of Discharge buPROPion XL 300 MG 24 hr tablet Take 300 mg by mouth daily. vitamin 27-1 MG tablet Take 1 tablet by mouth daily. documented as of this encounter Plan of Treatment Not on file documented as of this encounter Procedures Procedure Name Priority Date/Time Associated Diagnosis Comments URINALYSIS WI REFLEX TO CULTURE Routine 04/12/2021 11:35 AM CDT Abdominal cramping PLACENTAL ALPHA MICROGLOBULIN-1 STAT 04/12/2021 11:00 AM CDT Antepartum drug dependence ([facility]) NONSTRESS TEST Routine 04/12/2021 10:59 AM CDT Antepartum drug dependence ([facility]) documented in this encounter Results * URINALYSIS WI REFLEX TO CULTURE (04/12/2021 11:35 AM CDT) COLOR (U) YELLOW 04/12/2021 12:40 PM CDT [facility] TRANSPARENCY CLEAR 04/12/2021 12:40 PM CDT [facility] SPECIFIC GRAVITY (U) 1.010 1.002 - 1.030 04/12/2021 12:40 PM CDT [facility] U PH 7.0 4.5 - 8.0 04/12/2021 12:40 PM CDT [facility] LEUKOCYTES (U) NEGATIVE NEGATIVE 04/12/2021 12:40 PM CDT [facility] NITRITES NEGATIVE NEGATIVE 04/12/2021 12:40 PM CDT [facility] PROTEIN (U) NEGATIVE NEGATIVE 04/12/2021 12:40 PM CDT [facility] URINE GLUCOSE NEGATIVE NEGATIVE 04/12/2021 12:40 PM CDT [facility] KETONES MG/DL (U) NEGATIVE NEGATIVE 04/12/2021 12:40 PM CDT [facility] UROBILINOGEN NORMAL NORMAL EU/DL 04/12/2021 12:40 PM T [facility] BILIRUBIN (U) NEGATIVE NEGATIVE 04/12/2021 12:40 PM CDT [facility] BLOOD (U) NEGATIVE NEGATIVE 04/12/2021 12:40 PM CDT [facility] WBC/HPF 0-5 /HPF 04/12/2021 12:40 PM T [facility] CULTURE & SENSITIVITY INDICATED? CULTURE IS NOT INDICATED 04/12/2021 12:40 PM T [facility] RBC/HPF 0-2 /HPF 04/12/2021 12:40 PM CDT [facility] EPI/HPF 0-5 /HPF 04/12/2021 12:40 PM CDT [facility] BACTERIA (U) TRACE /HPF 04/12/2021 12:40 PM T [facility] URINE SPECIMEN OBTAINED BY CLEAN CATCH PROCEDURE / Unknown 04/12/2021 11:35 AM CDT us Cari CHRISTIANSONM URINE ORDERABLES Final Resul t Performing Organization Address [facility]/ZIP Co de Phone Number [facility] [address] [place] [address], [place] [phone] * PLACENTAL ALPHA MICROGLOBULIN-1 (04/12/2021 11:00 AM CDT) PLACENTAL A-MICROGLOBULI N 1 NEGATIVE NEGATIVE 04/12/2021 11:38 AM CDT [facility] VAGINAL STRUCTURE / Unknown 04/12/2021 11:00 AM CDT Neida Epps MD BODY FLUIDS AND STOOLS ORDERAB LES Final Result Performing Organization Address [facility] Co de Phone Number [facility] [address] [place] [address], [place] [phone] documented in this encounter Visit Diagnoses Diagnosis Abdominal cramping- Primary Abdominal pain, unspecified site Antepartum drug dependence ([facility]/HCC [facility]) Drug dependence, antepartum documented in this encounter Care Teams Global Position System Technician Relationship Specialty Start Date End Date Sahil Flores MD [address] [place] [address] PCP - General FAMILY MEDICINE SPORTS MEDICINE 03/06/21 documented as of this encounter
--- OUTSIDE RECORDS SUMMARY | 2024-08-16 03:19 | XMS_ITS | Encounter Summary ---
Author Organization [facility] Address [address] [place] [address]. [place], [place] [address] [place] [address] Care Team Providers Care Telegraphic Typewriter Mechanic Name Role Phone Sahil Galo MD Primary Care Provider [phone] Encounter Details Date Type Department Care Team (Latest Contact Info) Description 10/29/2019 Travel Social History Tobacco Use Types Packs/Day [...] on filedocumented in this encounter Care Teams Telegraphic Typewriter Mechanic Relationship Specialty Start Date End Date Sahil Galo MD [facility] [place] [address] PCP - General 10/25/15 03/05/21 documented as of this encounter
--- OUTSIDE RECORDS SUMMARY | 2024-08-16 03:19 | XMS_ITS | Encounter Summary ---
Author Organization [facility] Address [facility]. [place], [place] [address] [place] [address] Care Team Providers Care Agriculture Consultant Name Role Phone Sahil Galo MD Primary Care Provider [phone] Encounter Details Date Type Department Care Team (Late st Contact Info) Description 10/25/2015 Abstract [facility] [address] [address] Jen Cummings, [facility] [address] [place] [address] Social History Tobacco Use Types Packs/Day Years Used Date Smoking Tobacco: Never Assessed Comments Unknown Sex and Gender Information Value Date Recorded Sex Assigned at Not on file Legal Sex Female 10:24 PM CDT Gender Identity Not on file Sexual Orientation Not on file documented as of this encounter Plan of Treatment Not on file documented as of this encounter Visit Diagnoses Diagnosis Encounter for other specified special examinations documented in this encounter Care Teams Agriculture Consultant Relationship Specialty Start Date End Date Sahil Galo MD [address] [place] [address] PCP - General 10/25/15 03/05/21 documented as of this encounter
--- OUTSIDE RECORDS SUMMARY | 2024-08-16 03:19 | XMS_ITS | Encounter Summary ---
Author Organization [facility] Address [address] [place] [address]. [place], [place] [address] [place] [address] Care Team Providers Care Chimney Builder Helper Name Role Phone Sahil Flores MD Primary Care Provider [phone] Encounter Details Date Type Department Care Team (Latest Contact Info) Description 03/06/2021 Travel Social History Tobacco Use Types Packs/Day [...] on filedocumented in this encounter Care Teams Chimney Builder Helper Relationship Specialty Start Date End Date Sahil Flores MD [address] [place] [address] PCP - General FAMILY MEDICINE SPORTS MEDICINE 03/06/21 documented as of this encounter
--- OUTSIDE RECORDS SUMMARY | 2024-08-16 03:19 | XMS_ITS | Encounter Summary ---
Author Organization [facility] Address [address] [place] [address]. [place], [place] [address] [place] [address] Care Team Providers Care Sales Manager [place] Name Role Phone Sahil Galo MD Primary Care Provider [phone] Reason for Visit * Imaging (Routine) - Closed Specialty Diagnoses / Procedures Referred By Druac gorge Referred To Contact RADIOLOGY Diagnoses Vyvanse use disorder, mild (CMS/HCC HHS/HCC) Procedures US OB COMP >14WKS TA US OB ANATOMY COMPLETE TA+TV US OB ANATOMY COMPLETE TA+TV US OB COMP >14WKS TA US OB ANATOMY COMPLETE TA+TV Hali Aguayo DO Phone: tel: fax: Referral ID Status Reason Start Date Expiration Date Visits Re quested Visits Authorized [id number] Closed 01/12/2021 02/11/2022 1 1 Encounter Details Date Type Department Care Team (Latest Contact Info) Description 02/08/2021 8:30 AM CDT - 02/08/2021 11:59 PM CDT Hospital Encounter [facility] Ultrasound [address] [place] [address] Hali Aguayo DO [address] [place] [address] Discharge Disposition: Home or Self Care (Routine [...] as of this encounter Plan of Treatment Pending Results Name Type Priority Associated Diagnoses Date /Time US OB COMP >14WKS TA Ultrasound Routine Vyvanse use disorder, mild (CMS/HCC HHS/HCC) 02/08/2021 12:55 PM CDT Scheduled Orders Name Type Priority Associated Diagnoses Orde r Schedule US OB COMP >14WKS TA Ultrasound Routine Vyvanse use disorder, mild (CMS/HCC HHS/HCC) Once for 1 Occurrences starting 02/08/2021 until 02/08/2021 documented as of this encounter Visit Diagnoses Diagnosis (HHS/HCC) state, incidental Vyvanse use disorder, mild (CMS/HCC HHS/HCC) documented in this encounter Care Teams Sales Manager [place] Relationship Specialty Start Date End Date Sahil Galo MD [address] [place] [address] PCP - General 10/25/15 03/05/21 documented as of this encounter
--- OUTSIDE RECORDS SUMMARY | 2024-08-16 03:19 | XMS_ITS | Encounter Summary ---
Author Organization [facility] Address [address] [place] [address]. [place], [place] [address] [place] [address] Care Team Providers Care Lipstick Molder Name Role Phone Sahil Flores MD Primary Care Provider [phone] Encounter Details Date Type Department Care Team (Latest Contact Info) Description 05/08/2021 3:12 PM CDT - 05/08/2021 3:45 PM CDT Hospital Encounter [facility] Labor & Delivery [address] [place] [address] Vy Salter MD [address] [place], [place] [id number] Discharge Disposition: Home or Self Care (Routine [...] Sign Reading Time Taken Comments Blood Pressure 127/66 05/08/2021 3:15 PM CDT Pulse 95 05/08/2021 3:15 PM CDT Temperature - - Respiratory Rate - - Oxygen Saturation - - Inhaled Oxygen Concentration - - Weight 72.6 kg (160 lb) 05/08/2021 3:15 PM CDT Height 170.2 cm (5' 7 ) 05/08/2021 3:15 PM CDT Body Mass Index 25.06 05/08/2021 3:15 PM CDT documented in this encounter Discharge Instructions * Discharge Instructions* Keli Vargas RN - 05/08/2021 5:18 PM CDT Discharge Instructions After NST Patient Information [facility] at [phone] or return to the [facility] if: * You experience decreased movement. * Your water breaks. Call your physician or the [facility] if: * [...] next scheduled clinic visit. Additional Instructions Given: Follow up with [facility] as scheduled. documented in this encounter Medications at Time of Discharge buPROPion XL 300 MG 24 hr tablet Take 300 mg by mouth daily. vitamin 27-1 MG tablet Take 1 tablet by mouth daily. documented as of this encounter Plan of Treatment Not on file documented as of this encounter Procedures Procedure Name Priority Date/Time Associated Diagnosis Comments DRUG SCREEN RAPID Routine 05/08/2021 3:3 0 PM CDT ([facility] HC URINALYSIS AUTO W/O MICRO Routine 05/08/2021 3:30 PM CDT ([facility]) URINE BACTERIA CULTURE Routine 05/08/2021 3:30 PM CDT ([facility]) NONSTRESS TEST Routine 05/08/2021 3:27 PM CDT ([facility]) documented in this encounter Results * CULTURE URINE (05/08/2021 3:30 PM CDT) SPEC DESCRIPTION URINE CLEAN CATCH 05/08/2021 4:22 PM CDT [facility] SPECIAL REQUESTS NO SPECIAL REQUEST 05/08/2021 4:22 PM CDT [facility] CULTURE RESULT NO GROWTH 2 DAYS 05/10/2021 8:38 AM CDT [facility] URINE SPECIMEN OBTAINED BY CLEAN CATCH PROCEDURE / Unknown 05/08/2021 3:30 PM CDT 05/08/2021 4:24 PM CDT us Vy Salter MD MICROBIOLOGY - GENERAL BAKARI SANCHEZ Final Result [facility] [address] [place] [address], [place] [phone] [facility] [address] [place] [address], [place] [phone] * (ABNORMAL) URINALYSIS (05/08/2021 3:30 PM CDT) COLOR (U) YELLOW 05/08/2021 4:07 PM CDT [facility] TRANSPARENCY CLEAR 05/08/2021 4:07 PM CDT [facility] SPECIFIC GRAVITY (U) 1.025 1.002 - 1.030 05/08/2021 4:07 PM CDT [facility] U PH 6.0 4.5 - 8.0 05/08/2021 4:07 PM CDT [facility] LEUKOCYTES (U) NEGATIVE NEGATIVE 05/08/2021 4:07 PM CDT [facility] NITRITES NEGATIVE NEGATIVE 05/08/2021 4:07 PM CDT [facility] PROTEIN (U) 1+(A) NEGATIVE 05/08/2021 4:07 PM CDT [facility] URINE GLUCOSE NEGATIVE NEGATIVE 05/08/2021 4:07 PM CDT [facility] KETONES MG/DL (U) NEGATIVE NEGATIVE 05/08/2021 4:07 PM CDT [facility] UROBILINOGEN NORMAL NORMAL EU/DL 05/08/2021 4:07 PM CDT [facility] BILIRUBIN (U) NEGATIVE NEGATIVE 05/08/2021 4:07 PM CDT [facility] BLOOD (U) 2+(A) NEGATIVE 05/08/2021 4:07 PM CDT [facility] WBC/HPF 0-5 /HPF 05/08/2021 4:07 PM CDT [facility] RBC/HPF 5-10 /HPF 05/08/2021 4:07 PM CDT [facility] EPI/HPF 0-5 /HPF 05/08/2021 4:07 PM CDT [facility] BACTERIA (U) 2+ /HPF 05/08/2021 4:07 PM CDT [facility] URINE SPECIMEN OBTAINED BY CLEAN CATCH PROCEDURE / Unknown 05/08/2021 3:30 PM CDT us Vy Salter MD URINE ORDERABLES Final Resu lt [facility] [address] [place] [address], [place] [phone] * DRUG SCREEN RAPID (05/08/2021 3:30 PM CDT) AMPHETAMINE SCREEN (U) NEGATIVE NEGATIVE 05/08/2021 4:16 PM CDT [facility] BARBITURATES SCREEN (U) NEGATIVE NEGATIVE 05/08/2021 4:16 PM CDT [facility] BENZODIAZEPINES SCREEN (U) NEGATIVE NEGATIVE 05/08/2021 4:16 PM CDT [facility] BUPRENORPHINE SCREEN (U) NEGATIVE NEGATIVE 05/08/2021 4:16 PM CDT [facility] COCAINE METABOLITES (U) NEGATIVE NEGATIVE 05/08/2021 4:16 PM CDT [facility] METHAMPHETAMINE (U) NEGATIVE NEGATIVE 05/08 4:16 PM CDT [facility] METHADONE (U) NEGATIVE NEGATIVE 05/08/2021 4:16 PM CDT [facility] OPIATE SCREEN (U) NEGATIVE NEGATIVE 021 4:16 PM CDT [facility] OXYCODONE SCREEN (U) NEGATIVE NEGATIVE 05/08/2021 4:16 PM CDT [facility] PHENCYCLIDINE PCP (U) NEGATIVE NEGATIVE 05/08/2021 4:16 PM CDT [facility] PROPOXYPHENE SCREEN (U) NEGATIVE NEGATIVE 05/08/2021 4:16 PM CDT [facility] CANNABINOIDS SCREEN (U) NEGATIVE NEGATIVE 05/08/2021 4:16 PM CDT [facility] TRICYCLIC ANTIDEPRESSANT SCREEN (U) NEGATIVE NEGATIVE 05/08/2021 4:16 PM CDT [facility] Comment: NOTE: RESULTS OF [...] Urine specimen (specimen) URINE SPECIMEN / Unknown 05/08/2021 3:30 PM CDT us Vy Salter MD URINE ORDERABLES Final Resu lt [facility] [address] [place] [address], documented in this encounter Visit Diagnoses Diagnosis (HHS/HCC)- Primary state, incidental documented in this encounter Administered Medications Inactive Administered Medications - up to 3 most recent administrations Medication Order MAR Action Action Date Dose Rate Site cephALEXin (KEFLEX) capsule 500 mg 500 mg, Oral, Once, 1 dose, On e 05/08/21 at 1645 Given 05/08/2021 5:09 PM CDT 500 mg terbutaline (BRETHINE) injection 0.25 mg 0.25 mg, Subcutaneous, Once, 1 dose, On e 05/08/21 at 1645 Given 05/08/2021 4:35 PM CDT 0.25 mg Right Arm documented in this encounter Active and Recently Administered Medications Times are shown in CDT. Scheduled Medication Order 05/06/2021 05/07/2021 05/08/2021 cephALEXin (KEFLEX) capsule 500 mg (COMPLETED) 500 mg, Oral, Once, 1 dose, On e 05/08/21 at 1645 1709 (Given - Provid er: Keli Vargas RN) terbutaline (BRETHINE) injection 0.25 mg (COMPLETED) 0.25 mg, Subcutaneous, Once, 1 dose, On e 05/08/21 at 1645 1635 (Given - Provid er: Adilene Hawkins RN) documented in this encounter Care Teams Lipstick Molder Relationship Specialty Start Date End Date Sahil Flores MD [address] [place] [address] PCP - General FAMILY MEDICINE SPORTS MEDICINE 03/06/21 documented as of this encounter
--- OUTSIDE RECORDS SUMMARY | 2024-08-16 03:19 | XMS_ITS | Encounter Summary ---
Author Organization [facility] Address [facility]. [place], [place] [address] [place] [address] Care Team Providers Care Flight Test Supervisor Name Role Phone Sahil Galo MD Primary Care Provider [phone] Encounter Details Date Type Department Care Team (Late st Contact Info) Description 06/07/2017 [place] [address] , Generic Conversion, Social History Tobacco Use Types Packs/Day Years [...] on filedocumented in this encounter Care Teams Flight Test Supervisor Relationship Specialty Start Date End Date Sahil Galo MD [address] [place] [address] PCP - General 10/25/15 03/05/21 documented as of this encounter
--- OUTSIDE RECORDS SUMMARY | 2024-08-16 03:19 | XMS_ITS | Encounter Summary ---
Author Organization [facility] Address Formerly [facility], [facility]. [place], [place] [address] [place] [id number] Care Team Providers Care Investigation Specialist Name Role Phone Sahil Galo MD Primary Care Provider [phone] Encounter Details Date Type Department Care Team (Late st Contact Info) Description 10/29/2019 Orders Only [facility] [address] [place] [address] Sahil Flores MD [facility] [place] [address] Social History Tobacco Use Types Packs/Day Years [...] documented as of this encounter Results * HEPATITIS PANEL,ACUTE (10/29/2019 9:42 AM CDT) HEPATITIS B SURFACE AG NON-REACTI VE NON-REACTI VE 10/29/2019 2:45 PM CDT [facility] HEP B CORE IGM NON-REACTI VE NON-REACTI VE 10/29/2019 2:45 PM CDT [facility] HAV IGM NON-REACTI VE NON-REACTI VE 10/29/2019 2:45 PM CDT [facility] HEPATITIS C AB NON-REACTI VE NON-REACTI VE 10/29/2019 2:45 PM CDT [facility] 10/29/2019 9:42 AM CDT Sahil Flores MD LABORATORY Final Result [facility] [address] [place] [address], [place] [phone] * C-REACTIVE PROTEIN (10/29/2019 9:42 AM CDT) C-REACTIVE PROTEIN <0.20 <0.9 mg/dL 10/29/2019 10:31 AM CDT [facility] 10/29/2019 9:42 AM CDT Sahil Flores MD LABORATORY Final Result [facility] [address] [place] [address], [place] [phone] * (ABNORMAL) COMPREHENSIVE METABOLIC PANEL (10/29/2019 9:42 AM CDT) GLUCOSE 83 70 - 99 MG/DL 10/29/2019 10:31 AM CDT [facility] BUN 12 7 - 18 MG/DL 10/29/2019 10:31 AM CDT [facility] CREATININE S/P/B 1.03(H) 0.55 - 1.02 MG/DL 10/29/2019 10:31 AM CDT [facility] SODIUM S/P/B 141 136 - 145 MMOL/L 10/29/2019 10:31 AM [facility] POTASSIUM S/P/B 3.9 3.5 - 5.1 MMOL/L 10/29/2019 10:31 AM [facility] CHLORIDE S/P/B 105 100 - 108 MMOL/L 10/29/2019 10:31 AM [facility] CO2 26.7 21 - 32 MMOL/L 10/29/2019 10:31 AM [facility] CALCIUM S/P/B 8.6 8.5 - 10.1 MG/DL 10/29/2019 10:31 AM [facility] BILIRUBIN TOTAL S/P/B 0.5 0.2 - 1.2 MG/DL 10/29/2019 10:31 AM [facility] TOTAL PROTEIN S/P/B 7.3 6.4 - 8.2 G/DL 10/29/2019 10:31 AM [facility] ALBUMIN S/P/B 3.6 3.4 - 5.0 G/DL 10/29/2019 10:31 AM [facility] AST 17 15 - 37 U/L 10/29/2019 10:31 AM [facility] ALT 22 14 - 55 U/L 10/29/2019 10:31 AM [facility] ALKALINE PHOSPHATASE S/P/B 52 50 - 136 U/L 10/29/2019 10:31 AM [facility] ANION GAP 9.3 5 - 15 MMOL/L 10/29/2019 10:31 AM [facility] BUN CREATININE RATIO 11.7 6 - 26 10/29/2019 10:31 AM [facility] A/G RATIO 1.0 1.0 - 2.0 RATIO 10/29/2019 10:31 AM CDT [facility] EGFR NON-AFR. AMER. 73(L) >90 ML/MIN/1.7 3 M2 10/29/2019 10:31 AM CDT [facility] EGFR AFR. AMER. 85(L) >90 ML/MIN/1.7 3 M2 10/29/2019 10:31 AM CDT [facility] Comment: NOTE: eGFR is not calculated for patients <18 years of age. This is an estimated GFR (CKD EPI) and should not be used for calculating drug doses. 10/29/2019 9:42 AM CDT Sahil Flores MD LABORATORY Final Result [facility] [address] [place] [address], * (ABNORMAL) CBC W/DIFF AUTOMATED (10/29/2019 9:42 AM CDT) WBC 4.5 4.4 - 11.0 x10'3/uL 10/29/2019 9:55 AM CDT [facility] RBC 4.64 4.50 - 5.10 x10'6/uL 10/29/2019 9:55 AM CDT [facility] HGB 14.5 12.3 - 15.3 G/DL 10/29/2019 9:55 AM CDT [facility] HCT 43.2 35.9 - 44.6 % 10/29/2019 9:55 AM CDT [facility] MCV 93.1 80.0 - 96.0 FL 10/29/2019 9:55 AM CDT [facility] MCH 31.3(H) 25.3 - 30.9 PG 10/29/2019 9:55 AM CDT [facility] MCHC 33.6 31.0 - 34.1 G/DL 10/29/2019 9:55 AM CDT [facility] RDW 12.6 12.4 - 15.1 % 10/29/2019 9:55 AM T [facility] PLT 276 151 - 353 x10'3/uL 10/29/2019 9:55 AM T [facility] MPV 9.8 9.6 - 12.0 FL 10/29/2019 9:55 AM T [facility] RBC MORPHOLOGY NORMAL 10/29/2019 9:55 AM T [facility] PLT MORPH. NORMAL 10/29/2019 9:55 AM T [facility] WBC MORPHOLOGY NORMAL 10/29/2019 9:55 AM [facility] LYMPHOCYTES % 29.4 15.8 - 45.0 % 10/29/2019 9:55 AM T [facility] NEUTROPHILS % 62.0 42.1 - 71.9 % 10/29/2019 9:55 AM T [facility] MONOCYTES % 4.0(L) 5.7 - 12.5 % 10/29/2019 9:55 AM [facility] EOSINOPHILS 2.6 0.0 - 5.6 % 10/29/2019 9:55 AM [facility] BASOPHILS 1.8(H) 0.0 - 1.3 % 10/29/2019 9:55 AM [facility] ABS. NEUTROPHILS TOTAL 2.81 1.40 - 6.00 x10'3/uL 10/29/2019 9:55 AM [facility] IMMATURE GRANS % 0.2 0.0 - 0.5 % 10/29/2019 9:55 AM [facility] ABS. LYMPHOCYTES 1.33 0.80 - 4.70 x10'3/uL 10/29/2019 9:55 AM CDT [facility] 10/29/2019 9:42 AM CDT Sahil Flores MD LABORATORY Final Result [facility] [address] [place] [address], documented in this encounter Visit Diagnoses Diagnosis Stomach ache- Primary Dyspepsia and other specified disorders of function of stomach Diarrhea of presumed infectious origin documented in this encounter Care Teams Investigation Specialist Relationship Specialty Start Date End Date Sahil Galo MD [address] [place] [address] PCP - General 10/25/15 03/05/21 documented as of this encounter
--- OUTSIDE RECORDS SUMMARY | 2024-08-16 03:19 | XMS_ITS | Encounter Summary ---
Author Organization [facility] Address Formerly [facility]. [place], [place] [address] [place] [address] Care Team Providers Care Natural Resource Manager Name Role Phone Sahil Galo MD Primary Care Provider + [phone] Sahil Galo MD Primary Care Provider + [phone] Sahil Galo MD Primary Care Provider + [phone] Cordell Ge MD Primary Care Provider Unavailable Cordell Ge MD Primary Care Provider Unavailable Encounter Details Date Type Department Care Team (Late st Contact Info) Description 05/08/2006 Abstract [place] [facility] [place], [place] [id number] Md Generic ConversionMD Social History Tobacco Use [...] on filedocumented in this encounter Care Teams Natural Resource Manager Relationship Specialty Start Date End Date Sahil Galo MD [address] [place] [address] PCP - General 10/25/15 03/05/21 Sahil Galo MD [address] [place] [address] PCP - General 04/12/15 10/24/15 Sahil Galo MD [address] [place] [address] [place] [id number] PCP - General 10/09/14 04/11/15 , Generic Conversion, PCP - General 05/10/13 5 , Generic Conversion, PCP - General 07/30/10 documented as of this encounter
--- NOTE | 2024-08-23 11:38 | PM.OBTRLD ---
OB - Triage/Final Diagnosis Visit Information Comments/Additional reasons for admission: I have assessed the risk for this patient, Sara Kimble, and determined that she would benefit from observation care. Final Diagnosis (1) False labor: Code(s): O47.9 - False labor, unspecified Status: Acute
== END 2024-08-09 18:17 | disposition home or self-care (01) ==
PROVIDERS: Admitting Provider Obstetrics & Gynecology; Visit Provider Obstetrics & Gynecology
DX: O47.1 False labor at or after 37 completed weeks of gestation (principal); Z3A.39 39 weeks gestation of pregnancy
CPT/HCPCS: 76819; G0378; G0379

== ENCOUNTER 2024-08-19 05:02 | Inpatient (IN) | payer OTHER, SELFPAY ==
[2024-08-19] VITALS (192 sets, daily range): BP systolic 96–139; BP diastolic 50–94; PULSE 67–123; RESP 16; TEMP 36.2–37.4; O2SAT 98–100
[2024-08-19 05:56] LABS: Basophils Percent Auto 0.3 % (0.2-1.2); Eosinophils Absolute Auto 0.1 K/mm3 (0-0.3); Eosinophils Percent Auto 0.9 % (0-4.4); Hematocrit 38.6 % (37.0-47.0); Immature Granulocyte Absolute 0.08 K/mm3 (0.00-0.031); Immature Granulocyte Percent A 0.8 % (0-0.5); Lymphocytes Absolute Auto 1.31 K/mm3 (0.9-3.2); Lymphocytes Percent Auto 13.8 % (18.3-44.2); Mean Corpuscular HGB Conc 33.7 g/dl (32-36); Mean Corpuscular Hemoglobin 32.2 pg (26-34); Mean Corpuscular Volume 95.5 fl (80-100); Mean Platelet Volume 10.4 fl (7.4-10.4); Monocytes Absolute Auto 0.6 K/mm3 (0.1-0.6); Monocytes Percent Auto 6.5 % (2.6-8.5); Neutrophils Absolute Auto 7.4 K/mm3 (1.3-6.7); Neutrophils Percent Auto 77.7 % (45.5-73.1); Platelet Count Result 209 k/mm3 (150-375); Red Blood Count 4.04 M/mm3 (4.2-5.4); Red Cell Distribution Width 14.1 % (11.5-14.5); White Blood Count 9.5 K/mm3 (4.5-10.0)
[2024-08-19 06:48] LABS: HIV 1/2 Ab P24 Ag Result Negative (Negative)
[2024-08-19] MEDS: OXYTOCIN 30 UNITS/NS 500 ML 30 UNITS/500 ML BAG IV CONT (06:54)
[2024-08-19] MEDS: LACTATED RINGERS 1,000 ML 125 ML IV CONT ×2 (06:55→09:28)
--- NOTE | 2024-08-19 07:13 | P.PNAN_ITS ---
Anes - Eval Pre Procedure Procedure: labor epidural Date/Time: 08/19/24 07:13 Surgeon: emma Preop Diagnosis: pain during labor Pre Op Diagnosis: IOL Patient Data Age: 34 Gender: F Height: 1.7 m Weight: 87 kg Last Vital Signs Pulse 83 08/19/24 06:01 BP 111/67 08/19/24 06:01 Pulse Ox 98 08/19/24 07:10 O2 Del Method Room Air 08/19/24 06:45 Allergies Allergy/AdvReac Type Severity Reaction Status Date / Time No Known Allergies Allergy Verified 07/22/24 15:44 Home Medications ?Medication ?Instructions ?Recorded ?Confirmed ?Type fluticasone propionate 50 1 spray intranasal Q12H 10 days 08/25/19 Rx mcg/actuation nasal #15.8 mL spray,suspension (Flonase Allergy Relief) vit 95-makv-bzxhy-dha PO DAILY 07/22/24 History valacyclovir 500 mg tablet 500 mg PO Q12H 07/22/24 07/22/24 History (Valtrex) Laboratory Tests 08/19/24 05:28 WBC 9.5 K/mm3 (4.5-10.0) RBC 4.04 L M/mm3 (4.2-5.4) Hgb 13.0 g/dL (12.0-15.0) Hct 38.6 % (37.0-47.0) MCV 95.5 fl (80-100) MCH 32.2 pg (26-34) MCHC 33.7 g/dl (32-36) RDW 14.1 % (11.5-14.5) Plt Count 209 k/mm3 (150-375) MPV 10.4 fl (7.4-10.4) Immature Gran % (Auto) 0.8 H % (0-0.5) Neut % (Auto) 77.7 H % (45.5-73.1) Lymph % (Auto) 13.8 L % (18.3-44.2) [place] % (Auto) 6.5 % (2.6-8.5) Eos % (Auto) 0.9 % (0-4.4) Baso % (Auto) 0.3 % (0.2-1.2) Lymph # (Auto) 1.31 K/mm3 (0.9-3.2) [place] # (Auto) 0.6 K/mm3 (0.1-0.6) Eos # (Auto) 0.1 K/mm3 (0-0.3) Baso # (Auto) 0.0 K/mm3 (0.0-0.1) Abs Immat Gran (auto) 0.08 H K/mm3 (0.00-0.031) Absolute Neuts (auto) 7.4 H K/mm3 (1.3-6.7) Absolute Nucleated RBC 0.000 K/mm3 (0.0-0.012) Nucleated RBC % 0.0 % (0.0-0.2) RPR Pending HIV 1&2 Ab/P24 Ag 4thGn Negative (Negative) Blood Type O Negative Antibody Screen Negative Patient hx anesthesia problems: none Family hx anesthesia problems: none Results Review: All pre-operative results and documents have been reviewed as part of the pre- operative evaluation. [facility] Past Medical History Medical History (Updated 08/19/24 @ 07:14 by Ludivina Starr CRNA) ADHD Constipation Abdominal pain Family History Family History (Updated 07/22/24 @ 15:48 by Maribell Guido RN) Grandparent Heart disease Carcinoma of colon Glaucoma Social History Social History (Updated 11/23/19 @ 10:05 by Theresa Gómez CMA) Smoking status: Never smoker Second hand tobacco smoke exposure: No Alcohol intake: current Substance use: never Do You Feel Safe in your Home?: Yes Lack of Transportation: No Lack of Food: Never True Current Housing: I Have Housing Concerned About Future Housing: No Difficulty Paying Gas/Electric Bills: No Difficulty Paying for Meds: No Currently Unemployed: No Education: Associate Degree Difficulty w/ Childcare or Family Care: No Spiritual care concerns: No Exam Day of Procedure 08/19/24 07:13
--- NOTE | 2024-08-19 07:30 | P.HP_ITS ---
H&P: HPI History of Present Illness Date/Time: 08/19/24 07:30 Chief Complaint: Term previous section Narrative: 34-year-old 3 para 1011 lose last menstrual period is unknown, EDC is 08/15/2024, confirmed by 10 week ultrasound presents at 40 half weeks gestation for induction of labor. Her has been uncomplicated she has a history of HSV but it is had no lesions and been on Valtrex since 30/5 weeks. She has previous section for breech her cervix is favorable and she is negative for group B strep risks and benefits of trial of labor after reviewed in great detail multiple times throughout the Review of Systems Review of Systems: CONSTITUTIONAL: Denies sweats. EYES: Denies visual changes ENT: Denies otalgia. CARDIOVASCULAR: Denies chest pain, palpitations, edema. RESPIRATORY: Denies dyspnea, wheezing. Reports dry cough GASTROINTESTINAL: Denies abdominal pain, nausea, vomiting, diarrhea. GENITOURINARY: Denies urinary symptoms or discharge SKIN: Denies rash MUSCULOSKELETAL: Denies acute back pain, joint pain, or myalgia. NEUROLOGIC: Denies numbness, or focal weakness. [facility] Past Medical History Medical History ADHD Constipation Abdominal pain Family History Family History Grandparent Heart disease Carcinoma of colon Glaucoma Social History Social History Smoking status: Never smoker Second hand tobacco smoke exposure: No Alcohol intake: current Substance use: never Do You Feel Safe in your Home?: Yes Lack of Transportation: No Lack of Food: Never True Current Housing: I Have Housing Concerned About Future Housing: No Difficulty Paying Gas/Electric Bills: No Difficulty Paying for Meds: No Currently Unemployed: No Education: Associate Degree Difficulty w/ Childcare or Family Care: No Spiritual care concerns: No Meds Home Medications and Allergies Home Medications ?Medication ?Instructions ?Recorded ?Confirmed ?Type fluticasone propionate 50 1 spray intranasal Q12H 10 days 08/25/19 Rx mcg/actuation nasal #15.8 mL spray,suspension (Flonase Allergy Relief) vit 89-sgdr-[id number]-dha PO DAILY 07/22/24 History valacyclovir 500 mg tablet 500 mg PO Q12H 07/22/24 07/22/24 History (Valtrex) Allergies Allergy/AdvReac Type Severity Reaction Status Date / Time No Known Allergies Allergy Verified 07/22/24 15:44 Vital Signs Vital Signs - 24 hr 08/19/24 05:18 08/19/24 05:19 08/19/24 05:23 Temperature Pulse Rate 86 Blood Pressure 121/70 Pulse Oximetry 98 100 Oxygen Delivery 08/19/24 05:28 08/19/24 05:31 08/19/24 06:01 Temperature Pulse Rate 92 83 Blood Pressure 120/73 111/67 Pulse Oximetry 99 Oxygen Delivery 08/19/24 06:43 08/19/24 06:45 08/19/24 06:59 Temperature 98.3 F Pulse Rate Blood Pressure Pulse Oximetry Oxygen Delivery Room Air Room Air 08/19/24 07:10 08/19/24 07:15 08/19/24 07:20 Temperature Pulse Rate Blood Pressure Pulse Oximetry 98 99 99 Oxygen Delivery Exam Const: General: cooperative, healthy appearing and comfortable Nutritional Appearance: average body habitus Orientation/consciousness: oriented to person, oriented to place and oriented to time HENMT: Head: normal to inspection Resp: Effort & Inspection: normal respiratory effort Cardio: Rate: regular rate Rhythm: regular rhythm Heart sounds: S1 normal heart sound present and S2 normal heart sound present GI: Inspection: normal to inspection ( soft gravid uterus) : External Female Exam: normal external appearance Speculum Exam - Vagina: normal appearance of the vagina Speculum Exam - Cervix: normal appearance of the cervix ( cervix 2.5/75/-2. AROM clear. FHTs reassuring) H&P: Results Labs Labs: Short CBC 08/19/24 Range/Units 05:28 WBC 9.5 (4.5-10.0) K/mm3 Hgb 13.0 (12.0-15.0) g/dL Hct 38.6 (37.0-47.0) % Plt Count 209 (150-375) k/mm3 Assessment and Plan Assessment and plan (1) Term : Code(s): Z34.90 - Encounter for supervision of normal , unspecified, unspecified trimester Status: Acute (2) Previous section: Code(s): Z98.891 - History of uterine scar from previous surgery Status: Acute Plan proceed with medical induction of labor. IUPC was placed to control contraction strength. She is an epidural candidate
[2024-08-19 07:49] LABS: Rapid Plasma Reagin Non-Reactive (NonReactive)
--- NOTE | 2024-08-19 11:47 | PM.OBPNLAB ---
Pain Control Date/time seen: 08/19/24 11:47 Pain control: tolerating well and epidural Pelvic Exam Dilation (cm): 4
--- NOTE | 2024-08-19 15:47 | PM.OBPNLAB ---
Pain Control Date/time seen: 08/19/24 15:47 Pain control: tolerating well and epidural Pelvic Exam Dilation (cm): 5
--- NOTE | 2024-08-19 17:02 | P.PCNOB_ITS ---
OB - Vaginal Delivery Note Procedure Delivery date: 08/19/24 Events: Elective Induction of Labor and Previous Delivery Induction method: AROM Delivery monitor: External FHT, External Uterine and Internal Uterine Route of delivery: Episiotomy description: None Laceration Description: None Specimen: No Quantitative Blood Loss (ml): 62 Anesthesia type: Epidural Disposition: Floor Complications: No immediate complications Narrative: Patient was induced for 40 forceps weeks gestation. She had a favorable cervix artificial rupture membranes performed a a intrauterine pressure catheter was placed she did previous section she progressed through an unremarkable 1st stage of labor dilated pushed delivered spontaneously in the ALTON position nuchal cord checked of the status 1 X left anterior posterior shoulder delivered spontaneously. Cord cut placed on warmer with excellent cry. Placenta delivered intact spontaneously. Twenty of Pitocin placed IV to help firm the uterus on speculum all sidewalls no tears lacerations were noted QBL 62cc all sponge, needle instrument counts correct there were no immediate complications [place] Baby Date of : 08/19/24 Time of : 16:54 Gestational Age by Date: 40 Infant gender: Male position: Right Occiput Anterior Placenta delivery description: Spontaneous Cord Vessel Description: 3 Vessels, Nuchal Cord, Loose and Reduced
--- NOTE | 2024-08-19 17:06 | PM.DS ---
DS: Admitting Diagnosis Discharge Date 08/20/2024 Admitting Diagnosis term /previous section DS: Discharge Diagnosis Discharge Diagnosis (1) Term : Code(s): Z34.90 - Encounter for supervision of normal , unspecified, unspecified trimester Status: Acute (2) Previous section: Code(s): Z98.891 - History of uterine scar from previous surgery Status: Acute DS: Summary Hospital Course Reason for hospitalization: patient was admitted for induction of labor for trial of labor after underwent spontaneous vaginal delivery 6 with a successful on 08/19/2024. Hospital Course: Patient's hospital course unremarkable. She remained afebrile. She was up, voiding without difficulty, eating regular diet, ambulating, generally without complaint Time Spent with Patient Time attestation: Total time spent providing and/or coordinating discharge services: Exam Const: General: cooperative, healthy appearing and comfortable Nutritional Appearance: average body habitus Orientation/consciousness: oriented to person, oriented to place and oriented to time Resp: Effort & Inspection: normal respiratory effort Cardio: Rate: regular rate Rhythm: regular rhythm Heart sounds: S1 normal heart sound present and S2 normal heart sound present GI: Inspection: normal to inspection ( fundus firm below umbilicus) DS: Data Data Completed and Pending Labs on day of discharge: Labs from last 24 hours 08/19/24 05:28 WBC 9.5 RBC 4.04 L Hgb 13.0 Hct 38.6 MCV 95.5 MCH 32.2 MCHC 33.7 RDW 14.1 Plt Count 209 MPV 10.4 Immature Gran % (Auto) 0.8 H Neut % (Auto) 77.7 H Lymph % (Auto) 13.8 L [place] % (Auto) 6.5 Eos % (Auto) 0.9 Baso % (Auto) 0.3 Lymph # (Auto) 1.31 [place] # (Auto) 0.6 Eos # (Auto) 0.1 Baso # (Auto) 0.0 Abs Immat Gran (auto) 0.08 H Absolute Neuts (auto) 7.4 H Absolute Nucleated RBC 0.000 Nucleated RBC % 0.0 RPR Non-reactive HIV 1&2 Ab/P24 Ag 4thGn Negative Blood Type O Negative Antibody Screen Negative Discharge Plan Discharge Attending physician on discharge: Ricardo George Discharging Clinician: Ricardo George Patient Disposition: Home, Self-Care Activity: may shower, no straining and pelvic rest Diet: heart healthy Wound Care Instructions: follow printed instructions Patient Instructions: Antibiotic Form Patient Language: Pashto Stand Alone Forms: General Discharge Information Follow-up/Referrals: Ricardo George MD [Physician] - Discharge Medications: Continued fluticasone propionate [Flonase Allergy Relief] 50 mcg/actuation spray,suspension 1 spray NASAL Q12H 10 Days Qty: 15.8 0RF Rx Instructions: administer into each nostril vit 46-gpnw-nxwee-dha [ Multi-DHA (algal oil)] PO DAILY valacyclovir [Valtrex] 500 mg tablet 500 mg PO Q12H Date of admission: 08/19/24 05:02 Primary Care Provider: UNKNOWN,DOCTOR Admitting Provider: Ricardo George Attending physician on admission: Ricardo George Condition: Stable
[2024-08-19] MEDS: OXYTOCIN 30 UNITS/NS 500 ML 30 UNITS/500 ML BAG 125 UNITS IV CONT (17:29)
[2024-08-19] MEDS: ACETAMINOPHEN 325 MG TABLET 650 MG PO (17:55)
[2024-08-19] MEDS: WITCH HAZEL 40 PADS 1 PAD TOPICAL (17:55)
[2024-08-19] MEDS: IBUPROFEN 600 MG TABLET PO (18:35)
[2024-08-19] MEDS: BENZOCAINE 20% AER SPR (*SP) 56 GM CAN 1 SPRAY TOPICAL (19:46)
--- NOTE | 2024-08-19 20:03 | OBPPTRN ---
Patient transferred to post room #291 via wheelchair. Support person present. Oriented to unit, room, information board, rooming in, admission packet and security measures. Patient verbalizes understanding.
--- NOTE | 2024-08-19 20:03 | OBPPTRN ---
Patient transferred to post room # via ( ). Support person present. Oriented to unit, room, information board, rooming in, admission packet and security measures. Patient verbalizes understanding.
[2024-08-20 00:50] VITALS: BP 98/52; PULSE 77; RESP 16; TEMP 36.6; O2SAT 98
[2024-08-20 05:11] VITALS: BP 105/57; PULSE 91; RESP 16; TEMP 37.1; O2SAT 98
[2024-08-20] MEDS: IBUPROFEN 600 MG TABLET PO (05:35)
[2024-08-20] MEDS: ACETAMINOPHEN 325 MG TABLET 650 MG PO (05:35)
[2024-08-20 05:39] LABS: Hematocrit 33.7 % (37.0-47.0); Hemoglobin 11.3 g/dL (12.0-15.0)
[2024-08-20] MEDS: DOCUSATE SODIUM 100 MG CAPSULE PO ×2 (07:06→16:57)
[2024-08-20] MEDS: MULTIVIT/MIN/PREN/FOL AC/IRON TABLET 1 TAB PO (07:06)
--- NOTE | 2024-08-20 07:30 | P.PNOB_ITS ---
OB - PN: Subj Subjective Date/time seen: 08/20/24 07:30 Patient comments: no complaints, pain well controlled and tolerating diet OB - PN: Obj Data Labs 08/20/24 04:51 Labs: Laboratory Results - last 24 hr 08/19/24 08/20/24 05:28 04:51 Hgb 11.3 L Hct 33.7 L RPR Non-reactive OB - PN A/P Assessment and Plan (1) Term : Code(s): Z34.90 - Encounter for supervision of normal , unspecified, unspecified trimester Status: Acute (2) Previous section: Code(s): Z98.891 - History of uterine scar from previous surgery Status: Acute Plan Comments: routine care Time Spent With Patient Time: Total time spent is greater than 50% in coordination of care (as documented) at patient's floor/unit and/or counseling patient: Review of Systems 2 Review of Systems: All systems reviewed & are unremarkable except as noted in HPI and below Exam 2 Const: General: cooperative, healthy appearing and comfortable Nutritional Appearance: average body habitus Orientation/consciousness: oriented to person, oriented to place and oriented to time Resp: Effort & Inspection: normal respiratory effort Cardio: Rate: regular rate Rhythm: regular rhythm Heart sounds: S1 normal heart sound present and S2 normal heart sound present GI: Inspection: normal to inspection
[2024-08-20 08:30] VITALS: BP 112/53; PULSE 93; RESP 18; TEMP 36.4; O2SAT 99
--- NOTE | 2024-08-20 10:30 | WPDANLDPN2 ---
Anes-Prog Note L&D Date/Time: 08/20/24 10:30 Comfortable throughout: labor and delivery Neuraxial method: epidural Epidural/Spinal procedure site: clean & non-tender Neuro status: Neuro function grossly intact. Cardiovascular status: normal Respiratory status: normal Airway patency: baseline Mental status: baseline Post-Op hydration status: normal Vital Signs: Last Vital Signs Temp 36.4 C L 08/20/24 08:30 Pulse 93 08/20/24 08:30 Resp 18 08/20/24 08:30 BP 112/53 L 08/20/24 08:30 Pulse Ox 99 08/20/24 08:30 O2 Del Method Room Air 08/19/24 20:30 Pain score (VAS): 0 I/O: Intake & Output 08/19/24 08/20/24 08/20/24 23:59 07:59 15:59 Intake Total 500 Output Total 447 Balance 53 Post-procedural complaints: none Patient feedback: Patient satisfied with anesthetic care.
[2024-08-20 12:16] VITALS: BP 109/61; PULSE 82; RESP 16; TEMP 36.7; O2SAT 100
[2024-08-20] MEDS: RHO(D) IMMUNE GLOBULIN 300 MCG/2 ML SYRINGE IM (17:04)
[2024-08-20 19:00] VITALS: BP 126/76; PULSE 72; RESP 18; TEMP 36.6
--- NOTE | 2024-08-21 06:54 | P.PNOB_ITS ---
OB - PN: Subj Subjective Date/time seen: 08/21/24 06:54 Patient comments: no complaints, pain well controlled and tolerating diet [place] feeding status: exclusively breast feeding OB - PN: Obj Data Labs 08/20/24 04:51 Labs: Laboratory Results - last 24 hr 08/20/24 07:03 Blood Type O Negative Antibody Screen TNP Screen Negative Baby's Blood Type O pos Baby's TYLER Positive Doses of RhIg Required 1 OB - PN A/P Assessment and Plan (1) Previous section: Code(s): Z98.891 - History of uterine scar from previous surgery Status: Acute (2) Term : Code(s): Z34.90 - Encounter for supervision of normal , unspecified, unspecified trimester Status: Acute Plan Comments: home Time Spent With Patient Time: Total time spent is greater than 50% in coordination of care (as documented) at patient's floor/unit and/or counseling patient: Review of Systems 2 Review of Systems: All systems reviewed & are unremarkable except as noted in HPI and below Exam 2 Const: General: cooperative, healthy appearing and comfortable Nutritional Appearance: average body habitus Orientation/consciousness: oriented to person, oriented to place and oriented to time Resp: Effort & Inspection: normal respiratory effort Cardio: Rate: regular rate Rhythm: regular rhythm Heart sounds: S1 normal heart sound present and S2 normal heart sound present GI: Inspection: normal to inspection
[2024-08-21 07:15] VITALS: BP 114/66; PULSE 88; RESP 16; TEMP 36.8; O2SAT 99
[2024-08-21] MEDS: MULTIVIT/MIN/PREN/FOL AC/IRON TABLET 1 TAB PO (07:22)
[2024-08-21] MEDS: IBUPROFEN 600 MG TABLET PO (07:22)
--- NOTE | 2024-08-21 08:47 | PC.NURSE ---
Patient instructed on viewing the discharge video Mother & Baby Care, The First Two Weeks . Patient was given the opportunity and encouraged to ask questions. Patient verbalized understanding of information shared and has been given the mother/baby guide for home reference.
--- NOTE | 2024-08-21 09:46 | PC.NURSE ---
Consulted with mother concerning needs and she shared her ability to independently latch infant optimally without pain. Mother is feeding appropriately for growth of and understands stimulating to eat if needed. Infant has had appropriate feedings in the last 24 hours meets the outcomes for weight, output, blood sugar and jaundice at this time. Reinforced understanding of milk production, transition of milk, signs of adequate intake, transition of stool, prevention/relief of engorgement, plugged ducts, mastitis, responsive watching for feeding cues, the different methods of stimulating to breastfeed 1-3 hours after the start of the last feeding, community resources, and when to call a provider using the resource of the feeding sheet along with the mom and baby guide. Mother voiced understanding of the information shared, is confident to continue effectively her infant at home, when to call for assistance, denies any additional assistance or education at this time. Reported to the Primary RN.
[2024-08-23 12:55] VITALS: BP 108/63; PULSE 88; RESP 18; TEMP 37.1; O2SAT 100
--- OUTSIDE RECORDS SUMMARY | 2024-08-26 00:52 | XMS_ITS | Patient Health Summary ---
Author Organization [facility] Address [address] [address] Care Team Providers Care Plunger Scoop Operator Name Role Phone Unavailable Primary Care Provider Unavailabl e Note from [facility],non-owned Affiliates and Associated Physician Practices is amultiple site organization consisting of ambulatory clinics and hospital sitesin [place], [place], [place] and [place]. This disclosure is being madepursuant to the Care Everywhere program and may not contain all information available regarding this patient. Last updated 18.[facility] Active Problems Problem Noted Date Diagnosed Date [...] Rh negative status during in second trimester ([facility]) * BIOPHYSICAL PROFILE W NST(Performed 05/07/2021) Performed for Rh negative status during in second trimester ([facility]) * BIOPHYSICAL PROFILE W NST(Performed 04/30/2021) Performed for Rh negative status during in second trimester ([facility]) * BIOPHYSICAL PROFILE W NST(Performed 04/23/2021) Performed for Rh negative status during in second trimester ([facility]) * BIOPHYSICAL PROFILE W NST(Performed 04/16/2021) Performed for Rh negative status during in second trimester ([facility]) * BIOPHYSICAL PROFILE W NST(Performed 04/11/2021) Performed for Rh negative status during in second trimester ([facility]) * SONOGRAM - COMPLETE(Performed 04/02/2021) Performed for Rh negative status during in second trimester ([facility]) * SONOGRAM - COMPLETE(Performed 03/19/2021) Performed for Rh negative status during in second trimester ([facility]) * SONOGRAM - COMPLETE(Performed 02/08/2021) Results * BIOPHYSICAL PROFILE W NST (05/21/2021 7:45 AM CDT) Only the most recent of7 resultswithin the time period is included. Anatomical Region Laterality Modality Other 05/21/2021 7:45 AM CDT Narrative 05/21/2021 10:22 AM CDT ? - [facility] ?PHONE: ??FAX: ? Pat. Name: ?SARA KIMBLE. No: ?[id number] Study Date: ?? 05/21/2021 ??7:45am , Age: ? 1990, 30 Pregnancies: ?? 2, Para 0 Height: ? 67 in Weight: ? 140 lb LMP: ?09/07/2020 GA by LMP: ?36w4d GA by Base: ?? 36w4d ?? JOSE GA by US: ? 34w6d ?? JOSE GA Selected: ??36w4d (From [facility]) JOSE D: ?2021 Referring MD: Hali Aguayo MD Structural Fitter: ??Pamela aCicedo RDMS CPT4: ? 04514,[id number] BMI: ?21.92 Hist/Ind: ? Suspected FGR ?Vyvanse use in early ?Rh negative MEASUREMENTS & AGE ? GROWTH EVALUATION Measurement ??GA ? Range ? Srce %for GA Ratios ----- ---- ------- BPD ??8.2 cm 32w6d (53h0h-72o8l) Hadl BPD <01 FL/BPD 0.85 (0.71 - 0.87) HC ??32.3 cm 36w4d (94l9e-16o3l) Hadl HC ??22% FL/AC ??0.23 (0.20 - 0.24) AC ??29.7 cm 33w5d (11j4z-58x8k) Hadl AC ??2% HC/AC ??1.09 (0.92 - 1.11) FL ?? 7.0 cm 35w5d (04e5x-59u8h) Hadl FL ??25% CI ? 0.68 (0.70 - 0.86* HL ?? 5.9 cm 34w1d (60p8s-59y9g) Darrell HL ??8% GA for sonogram 34w6d (93i9x-11r1y) ?? Weight Estimate: based on (BPD,HC,AC,FL) Hadlock [...] 04/02/2021 9:35 AM CDT ?[facility] - [facility] ?PHONE: ??FAX: ? Pat. Name: ?SARA KIMBLE Pat. No: ?[id number] Study Date: ?? 04/02/2021 ??7:35am , Age: ? 1990, 30 Pregnancies: ?? 2, Para 0 Height: ? 67 in Weight: ? 140 lb LMP: ?09/07/2020 GA by LMP: ?29w4d GA by Base: ?? 29w4d ?? JOSE GA by US: ? 28w0d ?? JOSE GA Selected: ??29w4d (LMP) JOSE D: ?2021 Referring MD: Hali Aguayo MD Structural Fitter: ??Leona Valentino RDMS CPT4: ? [id number] BMI: ?21.92 Hist/Ind: ? SGA on 03/19 ?Vyvanse use in early ?Rh negative MEASUREMENTS & AGE ? GROWTH EVALUATION Measurement ??GA ? Range ? Srce %for GA Ratios ----- ---- ------- BPD ??6.7 cm 26w6d (51c3t-60k3e) Hadl BPD <01 FL/BPD 0.79 (0.71 - 0.87) HC ??27.3 cm 29w5d (59o9h-68w7k) Hadl HC ??20% FL/AC ??0.23 (0.20 - 0.24) AC ??23.0 cm 27w2d (08x1p-83x5e) Hadl AC ??2% HC/AC ??1.19 (0.98 - 1.17* FL ?? 5.3 cm 28w0d (17z7n-59c2i) Hadl FL ??5% CI ? 0.65 (0.70 - 0.86* HL ?? 4.9 cm 28w5d (78i6v-43e8m) Darrell HL ??34% GA for sonogram 28w0d (18b0o-56w7y) ?? Weight Estimate: based on (BPD,HC,AC,FL) Avg [...] <Electronic Signature> ??04/02/2021 09:34am Oziel Mayers MD [facility]
--- OUTSIDE RECORDS SUMMARY | 2024-08-26 00:52 | XMS_ITS | Clinical Summary ---
Author Organization [facility] Address [address] [place] [address] Care Team Providers Care Cargoman Name Role Phone Unavailable Primary Care Provider Unavailabl e Source Comments [facility],non-owned Affiliates and Associated Physician Practices is amultiple site organization consisting of ambulatory clinics and hospital sitesin [place], [place], [place] and [place]. This disclosure is being madepursuant to the Care Everywhere program and may not contain all information available regarding this patient. Last updated 18.[facility] Active Problems Problem Noted Date Diagnosed Date [...] patient's age to complete this topic MENINGOCOCCAL (Group B) VACCINE Aged Out No longer eligible based on patient's age to complete this topic MENINGOCOCCAL VACCINE Aged Out No raman fawad eligible based on patient's age to complete this topic PNEUMOCOCCAL VACCINE Aged Out No long er eligible based on patient's age to complete this topic
--- OUTSIDE RECORDS SUMMARY | 2024-08-26 00:52 | XMS_ITS | Encounter Summary ---
Author Organization [facility] Address [address] [place] [address]. [place], [place] [address] [place] [address] Care Team Providers Care Occupational Health And Safety Adviser Name Role Phone Sahil Flores MD Primary Care Provider [phone] Reason for Referral * Injection (Routine) - Closed Specialty Diagnoses / Procedures Referred By Contarden t Referred To Contact INFUSION THERAPY Diagnoses Unspecified screening ([facility]) Antidepressant type abuse, continuous ([facility]) Antepartum drug dependence ([facility]) Procedures RHO D IMMUNE GLOBULIN INJ,1 DOSE PK Walk in - for T-dap and Rhogam IM injection today (for antepartum) [facility] [address] [place] [address] Phone: tel: Referral ID Status Reason Start Date Expiration Date V isits Requested Visits Authorized [id number] Closed Specialty Services 03/12/2021 04/12/2022 1 1 Scheduling Instructions PT walk in for T-dap and Rhogam injection Encounter Details Date Type Department Care Team (Late st Contact Info) Description 03/12/2021 Therapy Plan [facility] [id number] [place] [address] Cari [place] CNM [address] [place] [address] Social History Tobacco Use Types [...] to Infusion Therapy Referral Routine Unspecified screening ([facility]) Antidepressant type abuse, continuous ([facility] HHS/[facility]) Antepartum drug dependence ([facility] HHS/HCC) Ordered: 03/12/2021 documented as of this encounter Visit Diagnoses Diagnosis Antidepressant type abuse, continuous ([facility] HHS/HCC)- Primary Antidepressant type abuse, continuous Unspecified screening ([facility]) Unspecified screening 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
--- OUTSIDE RECORDS SUMMARY | 2024-08-26 00:52 | XMS_ITS | Referral Summary ---
Author Organization [facility] Address [address] [place] [address] Care Team Providers Care Programs Manager Name Role Phone Unavailable Primary Care Provider Unavailabl e Source Comments [facility],non-owned Affiliates and Associated Physician Practices is amultiple site organization consisting of ambulatory clinics and hospital sitesin [place], [place], [place] and [place]. This disclosure is being madepursuant to the Care Everywhere program and may not contain all information available regarding this patient. Last updated 18.[facility] Active Problems Problem Noted Date Diagnosed Date [...]
--- OUTSIDE RECORDS SUMMARY | 2024-08-26 00:52 | XMS_ITS | Clinical Summary ---
Author Organization [facility] Address [address] [place] [address]. [place], [place] [address] [place] [address] Care Team Providers Care Machine Inspector Name Role Phone Sahil Flores MD Primary Care Provider [phone] Allergies No known active allergies Medications buPROPion XL 300 MG 24 hr tablet Take 300 mg by mouth daily. Active vitamin 27-1 MG tablet Take 1 tablet by mouth daily. Active Active Problems Problem Noted Date Diagnosed Date delivery delivered ([facility]) 05/27/2021 Poor growth affecting management of mother in third trimester ([facility]) 05/27/2021 Breech presentation on exami nation, single or unspecified fetus ([facility]) 05/27/2021 ([facility]) 05/25/2021 Unspecified screening ([facility]) 2020 Antidepressant type abuse, continuous ([facility]) 03/12/2021 Antepartum drug dependence ([facility]) 04/2021 Immunizations Name Administration Dates [...] Cancer Screening with HPV 2020 COVID-19 Vaccine (2023-2 5 season) 2024 Influenza Adult (#1) 2024 DTaP, Tdap and Td Vaccines ( 2 - Td or Tdap) 05/26/2031 05/26/2021 Hepatitis C Completed 10/29/2019 HPV Vaccines Aged Out No longer eligi ble based on patient's age to complete this topic Meningococcal B Vaccine Aged Out No l onger eligible based on patient's age to complete [...] VE NON-REACTI VE 10/29/2019 2:45 PM CDT [facility] HEP B CORE IGM NON-REACTI VE NON-REACTI VE 10/29/2019 2:45 PM CDT [facility] HAV IGM NON-REACTI VE NON-REACTI VE 10/29/2019 2:45 PM CDT [facility] HEPATITIS C AB NON-REACTI VE NON-REACTI VE 10/29/2019 2:45 PM CDT [facility] 10/29/2019 9:42 AM CDT Sahil Flores MD LABORATORY Final Result [facility] [address] [place] [address], from Last 3 Months or Most Recently Relevant to Health Maintenance Insurance [employer] [facility] Advance Directives * Full Code (Latest Code Status on File) Date Activated Date Inactivated Comments 05/25/2021 1:46 PM 05/27/2021 5:33 PM * Full Code Date Activated Date Inactivated Comments 05/24/2021 1:28 PM 05/24/2021 3:38 PM * Full Code Date Activated Date Inactivated Comments 05/08/2021 3:27 PM 05/08/2021 7:52 PM Care Teams Machine Inspector Relationship Specialty Start Date End Date Sahil Flores MD [address] [place] [address] PCP - General FAMILY MEDICINE SPORTS MEDICINE 03/06/21
== END 2024-08-21 12:57 | disposition home or self-care (01) | DRG 788 ==
LOC: ANHLDR 17:09 → ANHOB2 20:33
PROVIDERS: Admitting Provider Obstetrics & Gynecology; Visit Provider Obstetrics & Gynecology
DX: O34.211 Maternal care for low transverse scar from previous cesarean delivery (principal); Z37.0 Single live birth; Z3A.40 40 weeks gestation of pregnancy; O69.81X0 Labor and delivery complicated by cord around neck, without compression, not applicable or unspecified; A60.09 Herpesviral infection of other urogenital tract; B00.9 Herpesviral infection, unspecified
CPT/HCPCS: 36415; 85014; 85018; 85025; 85461; 86592; 86703; 86850; 86900; 86901; 90384; A9270; G0432; J2590; J2790; J2795; J7120